=== PATIENT | female | born 1950 | race Caucasian/White ===

== ENCOUNTER 2019-03-06 18:49 | Observation (INO) | payer OTHER ==
--- OUTSIDE RECORDS SUMMARY | 2019-03-06 19:03 | XMS REPORT | Clinical Summary ---
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 Last Filed Vital Signs Not on file Plan of Treatment Not on file Results Not on fileafter 03/05/2018 Insurance Payer Benefit Plan / Subscriber ID Type Phone Address Group AETNA - AETNA MEDICARE xxxxxxxx [facility] [phone] [address] MEDICARE MGD HMO POS [id number] [place] [address]
--- OUTSIDE RECORDS SUMMARY | 2019-03-06 19:03 | XMS REPORT | Clinical Summary ---
:1950 Author Organization [facility] Address [address] [place] [address] Care Team Providers Name Role Phone Jimmy Concepcion MD Primary Care Provider Allergies Active Allergy Reactions Severity Noted Date Comments Codeine Itching 04/27/2016 Other Itching, Rash Low 04/27/2016 steroid Penicillins Itching, Rash Low 04/27/2016 Medications Medication Sig Dispensed Refills Start Date End Date Status ALPHAGAN P 0.1 % drops INSTILL 1 DROP 1 10/03/2016 Active INTO BOTH EYES EVERY 12 HOURS famotidine (PEPCID) 20 Take 20 mg by 3 09/01/2016 Active MG tablet mouth once daily. latanoprost (XALATAN) PUT 1 DROP INTO 1 08/16/2016 Active 0.005 % ophthalmic BOTH EYES AT solution BEDTIME valACYclovir (VALTREX) Take 500 mg by 3 09/03/2016 Active 500 MG tablet mouth once daily. cycloSPORINE (RESTASIS Apply to eye. 0 Active MULTIDOSE) 0.05 % drops Active Problems Problem Noted Date GERD (gastroesophageal reflux disease) 10/25/2017 Postoperative visit 04/27/2016 Overview: 7 mons post op -DOS-08/27/15-ACDF C4-C6, currently in PT, pain to back of neck into L shoulder. Would like pt to stay on course with PT and f/u in 6 months. Neck strain 04/27/2016 Contusion of thoracic wall 04/27/2016 Family History Medical History Relation Name Comments Cancer Father Diabetes Mother Heart disease Mother Relation Name Status Comments Father Mother Social History Tobacco Use Types Packs/Day Years Used Date Never Smoker Smokeless Tobacco: Never Used Alcohol Use Drinks/Week oz/Week Comments No Drinks wine occasionally Sex Assigned at Date Recorded Not on file Job Start Date Occupation Industry Not on file Not on file Not on file Travel History Travel Start Travel End No recent travel history available. Last Filed Vital Signs Not on file Plan of Treatment Health Maintenance Due Date Last Done Comments BREAST CANCER SCREENING 2001 COLON CANCER SCREENING 2001 SHINGLES VACCINES (#1) 2001 65+ PNEUMOCOCCAL VACCINE (1 of 2 - PCV13) 02/24/2016 PNEUMOCOCCAL POLYSACCHARIDE VACCINE AGE 65 AND OVER 02/24/2016 INFLUENZA VACCINE 05/30/2019 Results Not on fileafter 03/05/2018 Insurance Payer Benefit Plan / Group Subscriber ID Type Phone Address AETNA MEDICARE AETNA MEDICARE HMO/PPO [facility] xxxxxxxx HMO
[2019-03-06] MEDS ORDERED: NA CHLORIDE 0.9% 1,000 ML IV SCH (21:00)
[2019-03-06] MEDS ORDERED: MORPHINE 2 MG/ML SYR IV PRN (21:02)
[2019-03-06] MEDS ORDERED: ONDANSETRON 4 MG/2 ML VIAL IV PRN (21:02)
[2019-03-06 21:31] LABS: Absolute Lymphocytes (CBC) 2.2 K/uL (0.7-4.9); Absolute Monocytes 0.6 K/uL (0.1-1.3); Absolute Neutrophil 3.6 K/uL (1.8-8.0); Basophils % 0.9 % (0-1.3); Eosinophils % 1.9 % (0-4.4); Hematocrit 42.2 % (36.0-45.0); Lymphocytes % 33.6 % (15.3-44.8); MPV 8.5 fL (7.6-11.3); Monocytes % 8.9 % (3.3-12.3); RBC Red Blood Cell Count 4.25 M/uL (3.86-4.86)
[2019-03-06 21:46] LABS: Albumin 3.6 g/dL (3.4-5.0); Bilirubin Total 0.4 mg/dL (0.2-1.0); Magnesium 2.3 mg/dL (1.8-2.4); Potassium 3.8 mmol/L (3.5-5.1); Protein, Total 7.1 g/dL (6.4-8.2)
[2019-03-06 23:10] LABS: Urine Appearance CLEAR; Urine Bilirubin NEGATIVE (NEG); Urine Blood NEGATIVE (NEG); Urine Color YELLOW; Urine Glucose NEGATIVE (NEG); Urine Protein NEGATIVE (NEG); Urine Specific Gravity <=1.005 (1.005-1.030); Urine Urobilinogen 0.2 mg/dL (0.2-1.0)
[2019-03-06 23:25] LABS: Urine Bacteria <20 /HPF (<20); Urine Culture Reflex Order NOT NEEDED; Urine RBC NONE SEEN /HPF (NONE SEEN)
[2019-03-07] MEDS ORDERED: POTASSIUM CL SA 10 MEQ TAB PO ONE (06:06)
[2019-03-07] MEDS ORDERED: ENOXAPARIN 40 MG/0.4 ML SQ SCH (09:00)
--- NOTE | 2019-03-07 11:57 | RAD REPORT ---
EXAM DESCRIPTION: CT - Abdomen Pelvis Wo Contrast - 03/06/2019 11:11 pm CLINICAL HISTORY: 69 years Female, abd pain, diarrhea COMPARISON: None. TECHNIQUE: 5 mm axial images of the abdomen and pelvis were obtained without intravenous contrast. 1 .5 mm coronal and sagittal reformatted images were obtained. This exam was performed according to our departmental dose-optimization program, which includes autom ated exposure control, adjustment of the mA and/or kV according to patient size and/or use of iterati ve reconstruction technique. INTRAVENOUS CONTRAST: None FINDINGS: Lung bases: Normal. Liver: Normal. Spleen: Normal. Pancreas: Normal. Gallbladder: Surgically absent. Right adrenal gland: Normal. Left adrenal gland: Normal. Right kidney: Normal. Left kidney: Normal. Retroperitoneal structures: There is very mild atherosclerotic disease of abdominal aorta.. Bowel survey: There is increased stool within the transverse, descending, and sigmoid colon. The appendix is not identified. There are no secondary signs of appendicitis. The distal ileum is unremarkable. Urinary bladder: Normal. Uterus and adnexa: The uterus is absent. The ovaries are unremarkable. Peritoneal cavity: Normal. Mesentery structures: Normal. Abdominal wall: There is a tiny umbilical hernia containing fat.. Bony structures: No suspicious lesions. IMPRESSION: 1. Increased stool within the transverse, descending, and sigmoid colon. Electronically signed by: Baudilio Underwood MD 03/06/2019 11:24 PM CDT Due to temporary technical issues with the PACS/Fluency reporting system, reports are being signed by the in house radiologist as a courtesy to ensure prompt reporting. The interpreting radiologist is f ully responsible for the content of the report.
--- NOTE | 2019-03-08 05:27 | DS ---
Date of Discharge: 03/07/2019 Disposition: Discharged to go home. Physical Examination: HEENT: Examination unremarkable. Lungs: Clear to auscultation. Heart: Sounds normal. Abdomen: Soft. Bowel sounds normal. No guarding, rigidity, distention. Mild tenderness in lower abdomen. No rebound tenderness. Extremities: No leg edema. Hospital Course: This is a 69-year-old very pleasant female patient who was admitted to the hospital yesterday after she came into office with abdominal pain, nausea, vomiting, and diarrhea. Please see dictated H and P for more information. The patient was admitted to the hospital. We were concerned about possibility of colitis or acute gastroenteritis type of problem, but other possibility kept in mind was possible side effect from medication as well, as she recently was started on cefuroxime last week because of acute bronchitis type of problem. Her bronchitis symptoms have improved significantly. After she was evaluated, she was admitted to the hospital. Her CBC and chemistry were unremarkable. CAT scan of the abdomen done last night was unremarkable except significant amount of stool noted in her colon. There was no evidence of any other acute finding. After the CAT scan was done, the patient had 3-4 diarrhea type of stools, which was expected with oral contrast. No nausea, no vomiting. This morning when I saw her, details of all the test results were discussed with her. The patient was made aware that it is possible that all her abdominal pain could be due to her underlying constipation problem and could be some side effect of antibiotic as well that we need to keep in mind, but in any case she was medically stable for discharge and she normally takes Metamucil 2 times a day every day. She was advised to continue that and she was instructed to start taking Dulcolax tablet laxative on a weekly basis. The patient was discharged to go home in stable condition with following discharge medications and instructions. Discharge Medication And Instructions: 1. Continue all prior home medication except stop antibiotic. 2. Follow up at my office next week on Monday and call office for appointment. 3. Take Dulcolax laxative 1 tablet by mouth once a week. Final Diagnoses: 1. Abdominal pain. 2. Constipation. 3. GERD. 4. Osteoarthritis, multiple sites. 5. Fatigue. 6. Depression. 7. Hyperlipidemia. EDWARD/MODL Voice ID: [id number] Report ID: [id number] [id number]
--- NOTE | 2019-03-09 14:16 | HP ---
Date of Admission: 03/06/2019 Chief Complaint: Abdominal pain, nausea, vomiting, diarrhea. History Of Present Illness: This is a very pleasant 69-year-old female patient who saw me last week with acute bronchitis type of problem and was treated with oral antibiotics cefuroxime. The patient came into office today and reported that her bronchitis symptoms were getting better. She still has little bit cough and occasional colored mucus that she coughs up, but overall much better. Denies any fever or chills. As of early this morning, she started to have significant lower abdominal pain associated with 1 episode of vomiting and a couple of episodes of diarrhea. The patient came into office with this complaints. After she was evaluated, she was admitted to the hospital. The patient does not feel good at all with these complaints, has not had good appetite today. Denies any bleeding. Allergies: TO CODEINE AND PENICILLIN. Medications: List reviewed. Review of Systems: GI: As mentioned above. Respiratory: As mentioned above. All other systems reviewed and negative. Social History: Negative for smoking and alcohol use. Family History: Hypertension, diabetes, heart disease. Past Surgical History: Appendectomy, Tonsillectomy, Hysterectomy, C spine surgery, Knee surgery. Past Medical History: Osteoarthritis, glaucoma, hyperlipidemia, fatigue, depression, GERD. Physical Examination: Vital Signs: Height 5 feet 1 inch, weight 208 pounds, temperature 97.7, pulse 69, respiratory rate 20, blood pressure 139/61, 98% oxygen saturation. General: Awake, alert, oriented, not in distress. HEENT: Head atraumatic, normocephalic. Conjunctivae nonerythematous. Sclerae white. Mouth, no thrush or edema noted. Ears/Nose, no mass, lesion, discharge noted. Neck: Supple. No JVD, lymph nodes, bruit, thyromegaly noted. Lungs: Bilateral good equal air entry. Clear to auscultation. No rhonchi. No rales. Heart: Normal heart sounds, no murmur or gallop. Abdomen: Soft. Bowel sounds normoactive. No guarding, rigidity, distention. No hepatosplenomegaly. No bruit, but the patient has significant tenderness all across the lower abdomen. Extremities: No leg edema. No calf tenderness. Skin: No rash, ulcer, cellulitis. Lymphatics: No lymph node enlargement in neck, supraclavicular, infraclavicular region. Neuro: No focal neurological deficit. Chest: Unremarkable. External Genitalia: Deferred. Rectal: Deferred. Laboratory Data: White count 6.7, hemoglobin 14, and platelet 233. Sodium 143 , potassium 3.8, chloride 108, bicarb 29, BUN 11, creatinine 0.86, glucose 84. Liver function tests unremarkable. Procalcitonin less than 0.05. Urinalysis negative. Impression: Abdominal pain. Plan: Admit the patient to hospital for further evaluation and management of this problem. I was concerned about possibility of acute gastroenteritis or diverticulitis/colitis type of problem. We will follow up on CAT scan and then decide further plan of treatment. Meanwhile, IV fluid was ordered, we will continue that. DVT prophylaxis will be given per order. I will see her tomorrow morning for followup and further plan of treatment will depend on the CAT scan result. EDWARD/LEAH Voice ID: [id number] MTDD
== END 2019-03-07 11:05 | disposition home or self-care (01) ==
LOC: 2ND 19:00
PROVIDERS: ADMIT Internal Medicine; ATTEND Internal Medicine
DX: K59.00 Constipation, unspecified (principal); R10.9 Unspecified abdominal pain; M19.90 Unspecified osteoarthritis, unspecified site; E78.5 Hyperlipidemia, unspecified; F32.9 Major depressive disorder, single episode, unspecified; K21.9 Gastro-esophageal reflux disease without esophagitis; Z88.0 Allergy status to penicillin
CPT/HCPCS: 87045; 85025; 81001; 36415; 83735; 87046; 87493; 80053; 84145; 74176; J7030; G0379; G0378; J1650

== ENCOUNTER 2021-03-15 09:53 | Emergency (ER) | payer OTHER ==
--- OUTSIDE RECORDS SUMMARY | 2021-03-15 09:56 | XMS REPORT | Continuity of Care Document ---
:1950 Author Organization [facility] t Address [facility] [address] [place] [address] Care Team Providers Name Role Phone Pcp MD Primary Care Physician Unavailable Mo HAZEL Attending Clinician Problems Condition Condition Condition Status Onset Resolution Last Treating Co mments Source Name Details Category Date Date Treatment Clinician Date GERD GERD Disease Active 2016-10 [place] (gastroeso (gastroeso 2-27 Me thodi phageal phageal 00:00: st reflux reflux 00 disease) disease) Postoperat Postoperat Disease Active Overview : [place] daphney visit daphney visit 04-27 Formattin M ethodi 00:00: g of this st 00 note might be different from the original. 7 mons post op -DOS-07/31 07/14-ACDF C4-C6, currently in PT, pain to back of neck into L shoulder. Would like pt to stay on course with PT and f/u in 6 months. Neck Neck Disease Active [place] strain strain 04-27 Methodi 00:00: st 00 Contusion Contusion Disease Active Brenden ston of of 04-27 Methodi thoracic thoracic 00:00: st wall wall 00 Allergies, Adverse Reactions, Alerts Allergy Allergy Status Severity Reaction(s) Onset Inactive Treating Comm ents Source Name Type Date Date Clinician Codeine Propensi Active Itching [place] n ty to 04-27 Methodi adverse 00:00: st reaction 00 s to drug Other Propensi Active Itching, steroid [place] on ty to Rash 04-27 Methodi adverse 00:00: st reaction 00 s Penicill Propensi Active Itching, [place] ins ty to Rash 04-27 Methodi adverse 00:00: st reaction 00 s to drug Family History Family Member Diagnosis Comments Start Date Stop Date Source Natural father Cancer [place] [facility] Natural mother Diabetes [place] [facility] Natural mother Heart disease Felipe [facility] Social History Social Habit Start Date Stop Date Quantity Comments Source Alcohol intake 2017-10-26 2017-10-26 Current non-drinker [place] 00:00:00 00:00:00 of alcohol [facility] [place] (finding) Tobacco use and 2017-10-26 2017-10-26 Never used [facility] exposure 00:00:00 00:00:00 [place] [place] Alcohol Comment 2017-10-25 2017-10-25 Drinks wine [place] 00:00:00 00:00:00 occasionally [place] [place] Sex Ass[birth year] At [birth year] [place] 00:00:00 00:00:00 [facility] [place] Smoking Status Start Date Stop Date Source Never smoker Wang Demondis t Medications Ordered Filled Start Stop Current Ordering Indication Dosage Frequency Signature Comments Components Source Medication Medication Date Date Medication? Clinician (SIG) Name Name cycloSPORIN 2016-10 Yes Apply to Robert lyle E (RESTASIS 12-27 eye. Methodi MULTIDOSE) 13:55: st 0.05 % 02 drops ALPHAGAN P 2015-10 Yes INSTILL 1 Robert lyle 0.1 % drops 2-05 DROP INTO Met hodi 00:00: BOTH EYES st 00 EVERY 12 HOURS valACYclovi 2015-10 Yes 500mg QD Take 500 H outianna r (VALTREX) 1-05 mg by Methodi 500 MG 00:00: mouth once st tablet 00 daily. famotidine 2015-10 Yes 20mg QD Take 20 mg H outianna (PEPCID) 20 1-03 by mouth Meth janie MG tablet 00:00: once st 00 daily. latanoprost 2015-10 Yes PUT 1 DROP Felipe (XALATAN) 0-18 INTO BOTH Metho di 0.005 % 00:00: EYES AT st ophthalmic 00 BEDTIME solution Procedures This patient has no known procedures. Plan of Care Planned Activity Planned Date Details Comments Source Future Scheduled 2021-05-30 INFLUENZA VACCINE [place] [facility] Test 00:00:00 [code = INFLUENZA VACCINE] Future Scheduled 2020-06-30 INFLUENZA VACCINE (#1) [facility] - Test 00:00:00 [code = INFLUENZA Medical Ce nter VACCINE (#1)] Future Scheduled 2018-02-[address] [facility] - Test 00:00:00 WELLNESS (YEAR 2 or Medical Center FIRST YEAR if no IPPE) [code = MEDICARE ANNUAL WELLNESS (YEAR 2 or FIRST YEAR if no IPPE)] Future Scheduled 2016-02-24 PNEUMOCOCCAL 65+ YRS [facility] - Test 00:00:00 (2 of 2 - PPSV23) Medical Ce nter [code = PNEUMOCOCCAL 65+ YRS (2 of 2 - PPSV23)] Future Scheduled 2016-02-24 65+ PNEUMOCOCCAL [facility] Test 00:00:00 VACCINE (1 of 1 - PPSV23) [code = 65+ PNEUMOCOCCAL VACCINE (1 of 1 - PPSV23)] Future Scheduled 2001 BRE[facility] CANCER [facility] 00:00:00 SCREENING [code = BREAST CANCER SCREENING] Future Scheduled 2001 COLONOSCOPY SCREENING [place] [facility] Test 00:00:00 [code = COLONOSCOPY SCREENING] Future Scheduled 2001 SHINGLES VACCINES (#1) [place] [facility] Test 00:00:00 [code = SHINGLES VACCINES (#1)] Future Scheduled 1967 COVID-19 VACCINE (1) Brenden ston [facility] Test 00:00:00 [code = COVID-19 VACCINE (1)] Future Scheduled [address] [facility] - Test 00:00:00 malignant neoplasm of [facility] breast (procedure) [code = 100639734] Future Scheduled [address] [facility] - Test 00:00:00 malignant neoplasm of [facility] colon (procedure) [code = 668948083] Encounters Start End Encounter Admission Attending Care Care Encounter Source Date/Time Date/Time Type Type Clinicians Facility Department ID 2019-08-05 2019-08-05 SHAYAN Hawthorne [id number] 12:51:09 13:32:29 Visit Yasmin AMBULATOR [id number] Y [id number] 2019-07-02 2019-07-02 Kwasi Hassan, BCM [id number] 10:30:43 11:41:19 Visit Yasmin AMBULATOR [id number] Y [id number] 2019-06-17 2019-06-17 Office SHAYAN Hassan [id number] 12:47:15 13:25:21 Visit Yasmin AMBULATOR [id number] Y [id number] Results Test Description Test Time Test Comments Results Result Sour e Comments FL, ESOPH, SWALLOW 2019-03-13 Reason for FINAL REPORT PATIENT FUNCTION, WITH 11:13:00 Exam:->r07.0 ID: [id number] CINE OR VIDEO Modified barium swallow exam with speech pathology service, 03/13/2019 CLINICAL HISTORY: R07.0 Fluoro Time: 93 seconds. 11 films were obtained min. IMPRESSION: Please see the speech pathology service report for details. Barium contrast of multiple consistencies is given to the patient to swallow. Fluoroscopic observation is performed during swallowing. Cervical ACDF is noted at C4 through C6. No aspiration was visualized. Signed: Roge Red MDReport Verified Date/Time: 03/13/2019 11:13:50 Reading Location: [address] Radiology Reading Room
--- NOTE | 2021-03-15 10:42 | RAD REPORT ---
EXAM DESCRIPTION: RAD - Forearm Left - 03/15/2021 10:34 am CLINICAL HISTORY: Left forearm pain status post injury FINDINGS: No fracture is seen
--- NOTE | 2021-03-15 10:54 | ER ---
Nurse's Notes [facility] Name: Beryl Shah Age: 71 yrs Sex: Female : 1950 Arrival Date: 03/15/2021 Time: 09:57 Bed Treatment Private MD: Diagnosis: Pain in left wrist;Fall on same level from slipping, tripping and stumbling Presentation: 03/15 10:03 Chief complaint: Patient states: Tripped on a rug and fell this morning at 0900. Landed ca1 on L side. Reports pain on L wrist, L forearm pain when twisting arm. Coronavirus screen: Client denies travel out of the [place] in the last 14 days. At this time, the client does not indicate any symptoms associated with coronavirus-19. Ebola Screen: Patient negative for fever greater than or equal to 101.5 degrees Fahrenheit, and additional compatible Ebola Virus Disease symptoms Patient denies exposure to infectious person. Patient denies travel to an Ebola-affected area in the 21 days before illness onset. No symptoms or risks identified at this time. Initial Sepsis Screen: Does the patient meet any 2 criteria? No. Patient's initial sepsis screen is negative. Does the patient have a suspected source of infection? No. Patient's initial sepsis screen is negative. Risk Assessment: Do you want to hurt yourself or someone else? Patient reports no desire to harm self or others. Onset of symptoms was March 15, 2021. 10:03 Method Of Arrival: Ambulatory ca1 10:03 Acuity: ANDREA 4 ca1 Historical: - Allergies: 10:07 PENICILLINS; ca1 10:07 steroids; ca1 10:07 Codeine; ca1 - PMHx: 10:07 Herpes; Gastric Reflux; ca1 - PSHx: 10:07 Hysterectomy; Cholecystectomy; Appendectomy; Knee surgery; Neck surgery; ca1 - Immunization history:: Client reports receiving the 2nd dose of the Covid vaccine, Client reports receiving the 1st dose of the Covid vaccine, Pneumococcal vaccine is up to date, Flu vaccine is up to date. - Social history:: Smoking status: Patient denies any tobacco usage or history of. Screenin:27 Abuse screen: Denies threats or abuse. Denies injuries from another. Nutritional ld1 screening: No deficits noted. Tuberculosis screening: No symptoms or risk factors identified. Fall Risk Fall in past 12 months (25 points). Primary Survey: 11:00 Breathing/Chest: Respiratory pattern: regular, Respiratory effort: spontaneous, ld1 unlabored. Circulation: Cardiac rhythm: sinus rhythm. Disability Alert. Exposure/Environment:. Assessment: 10:27 General: Appears in no apparent distress. comfortable, Behavior is calm, cooperative, ld1 appropriate for age. Pain: Complains of pain in left hand Pain does not radiate. Pain currently is 7 out of 10 on a pain scale. Quality of pain is described as throbbing, Pain began 1 hour ago. Is continuous. Neuro: Level of Consciousness is awake, alert, obeys commands, Oriented to person, place, time, situation, Appropriate for age. Cardiovascular: Capillary refill < 3 seconds Patient's skin is warm and dry. Pulses are palpable in right radial artery and left radial artery. Respiratory: Airway is patent Respiratory effort is even, unlabored, Respiratory pattern is regular, symmetrical. GI: Abdomen is round non-distended. : No signs and/or symptoms were reported regarding the genitourinary system. EENT: No signs and/or symptoms were reported regarding the EENT system. Derm: No signs and/or symptoms reported regarding the dermatologic system. Musculoskeletal: No signs and/or symptoms reported regarding the musculoskeletal system. 10:31 Reassessment: ERP at bedside discussing POC. ld1 10:45 Reassessment: ERP at bedside discussing POC. ld1 Vital Signs: 10:03 BP 152 / 95; Pulse 68; Resp 16 S; Temp 97.7(TE); Pulse Ox 98% on R/A; Weight 101.15 kg ca1 (R); Height 5 ft. 0 in. (152.40 cm) (R); Pain 8/10; 10:27 BP 158 / 69; Pulse 74; Resp 18; Temp 97.9(TE); Pulse Ox 100% on R/A; Weight 101.1 kg; ld1 Height 5 ft. 5 in. (165.10 cm); Pain 7/10; 10:27 Body Mass Index 37.09 (101.10 kg, 165.10 cm) ld1 ED Course: 09:57 Patient arrived in ED. ds1 10:05 Triage completed. ca1 10:07 Arm band placed on right wrist. ca1 10:09 Abril Reyna FNP-C is PHCP. kb 10:09 Skyla Medina MD is Attending Physician. kb 10:27 Amna Powers, RN is Primary Nurse. ld1 10:27 Patient has correct armband on for positive identification. Bed in low position. Call ld1 light in reach. Side rails up X 1. Pulse ox on. NIBP on. Door closed. Noise minimized. Warm blanket given. 10:27 No provider procedures requiring assistance completed. ld1 10:34 Forearm Left XRAY In Process Unspecified. EDMS 11:02 Patient did not have IV access during this emergency room visit. ld1 Administered Medications: 10:48 Drug: TORadol (ketorolac) 30 mg Route: IM; Site: right deltoid; ld1 10:51 Follow up: Response: No adverse reaction ld1 Outcome: 10:53 Discharge ordered by MD. kb 11:02 Discharged to home ambulatory. ld1 11:02 Condition: stable 11:02 Discharge instructions given to patient, Instructed on discharge instructions, follow up and referral plans. Demonstrated understanding of instructions, follow-up care. 11:04 Patient left the ED. ld1 Signatures: Dispatcher [employer] EDLA Abril Reyna FNP-C STORAGE ADMINISTRATOR-Rosette Cuenca ds1 Lelia Healy RN RN ca1 Amna Powers, RN RN ld1 Corrections: (The following items were deleted from the chart) 11:03 10:27 Cardiovascular: Capillary refill < 3 seconds Patient's skin is warm and dry. ld1 ld1
--- NOTE | 2021-03-15 10:54 | EDPHYS ---
Physician Documentation [facility] Name: Beryl Shah Age: 71 yrs Sex: Female : 1950 Arrival Date: 03/15/2021 Time: 09:57 Bed Treatment Private MD: ED Physician Skyla Medina HPI: 03/15 12:00 This 71 yrs old Female presents to ER via Ambulatory with complaints of Fall kb Injury. 12:00 Details of fall: The patient fell from an upright position, while walking. Onset: The kb symptoms/episode began/occurred today. Associated injuries: The patient sustained left wrist, decreased range of motion, painful injury, swelling. Severity of symptoms: At their worst the symptoms were mild, moderate, in the emergency department the symptoms are unchanged. The patient has not experienced similar symptoms in the past. The patient has not recently seen a physician. Pt reports she tripped over a rug and fell onto outstretched left hand. c/o left wrist pain. Denies any other injuries or pain. Historical: - Allergies: 10:07 PENICILLINS; ca1 10:07 steroids; ca1 10:07 Codeine; ca1 - PMHx: 10:07 Herpes; Gastric Reflux; ca1 - PSHx: 10:07 Hysterectomy; Cholecystectomy; Appendectomy; Knee surgery; Neck surgery; ca1 - Immunization history:: Client reports receiving the 2nd dose of the Covid vaccine, Client reports receiving the 1st dose of the Covid vaccine, Pneumococcal vaccine is up to date, Flu vaccine is up to date. - Social history:: Smoking status: Patient denies any tobacco usage or history of. ROS: 11:59 Constitutional: Negative for fever, chills, and weight loss, Respiratory: Negative for kb shortness of breath, cough, wheezing, and pleuritic chest pain, Abdomen/GI: Negative for abdominal pain, nausea, vomiting, diarrhea, and constipation, Skin: Negative for injury, rash, and discoloration, Neuro: Negative for headache, weakness, numbness, tingling, and seizure. 11:59 MS/extremity: Positive for decreased range of motion, pain, swelling, tenderness, of the left wrist. Exam: 11:59 Constitutional: This is a well developed, well nourished patient who is awake, alert, kb and in no acute distress. Respiratory: Respirations even and unlabored. No increased work of breathing, no retractions or nasal flaring. Skin: Warm, dry with normal turgor. Normal color. Neuro: Awake and alert, GCS 15, oriented to person, place, time, and situation. Moves all extremities. Normal gait. Psych: Awake, alert, with orientation to person, place and time. Behavior, mood, and affect are within normal limits. 11:59 Musculoskeletal/extremity: Extremities: grossly normal except: noted in the left wrist: decreased ROM, pain, swelling, tenderness, ROM: limited active range of motion due to pain, in the left wrist, Circulation is intact in all extremities. Sensation intact. Vital Signs: 10:03 BP 152 / 95; Pulse 68; Resp 16 S; Temp 97.7(TE); Pulse Ox 98% on R/A; Weight 101.15 kg ca1 (R); Height 5 ft. 0 in. (152.40 cm) (R); Pain 8/10; 10:27 BP 158 / 69; Pulse 74; Resp 18; Temp 97.9(TE); Pulse Ox 100% on R/A; Weight 101.1 kg; ld1 Height 5 ft. 5 in. (165.10 cm); Pain 7/10; 10:27 Body Mass Index 37.09 (101.10 kg, 165.10 cm) ld1 MDM: 10:11 Patient medically screened. kb 11:58 Data reviewed: vital signs, nurses notes. Data interpreted: Pulse oximetry: on room air kb is 100 %. Interpretation: normal. Counseling: I had a detailed discussion with the patient and/or guardian regarding: the historical points, exam findings, and any diagnostic results supporting the discharge/admit diagnosis, radiology results, the need for outpatient follow up, a family practitioner, to return to the emergency department if symptoms worsen or persist or if there are any questions or concerns that arise at home. 03/15 10:08 Order name: Forearm Left XRAY; Complete Time: 10:45 kb 03/15 10:53 Order name: Wilbert Wrap; Complete Time: 10:54 kb Administered Medications: 10:48 Drug: TORadol (ketorolac) 30 mg Route: IM; Site: right deltoid; ld1 10:51 Follow up: Response: No adverse reaction ld1 Disposition: 18:39 Co-signature as Attending Physician, Skyla Medina MD. ma2 Disposition: 03/15/21 10:53 Discharged to Home. Impression: Pain in left wrist, Fall on same level from slipping, tripping and stumbling. - Condition is Stable. - Discharge Instructions: Musculoskeletal Pain, Wrist Pain, Vavb-ws-Fnat. - Medication Reconciliation Form, Thank You Letter, Antibiotic Education, Prescription Opioid Use form. - Follow up: Emergency Department; When: As needed; Reason: Worsening of condition. Follow up: Private Physician; When: 2 - 3 days; Reason: Recheck today's complaints, Continuance of care, Re-evaluation by your physician. Signatures: Dispatcher [employer] EDMS Abril Reyna, ROSEMARIE-C MANAGER QUALITY COMPLIANCE-Skyla Pearce MD MD ma2 Lelia Healy RN RN ca1 Amna Powers RN RN ld1 Corrections: (The following items were deleted from the chart) 11:04 10:53 03/15/2021 10:53 Discharged to Home. Impression: Pain in left wrist; Fall on same ld1 level from slipping, tripping and stumbling. Condition is Stable. Forms are Medication Reconciliation Form, Thank You Letter, Antibiotic Education, Prescription Opioid Use. Follow up: Emergency Department; When: As needed; Reason: Worsening of condition. Follow up: Private Physician; When: 2 - 3 days; Reason: Recheck today's complaints, Continuance of care, Re-evaluation by your physician. kb 11:59 11:59 Constitutional: Negative for fever, chills, and weight loss, kb kb 12:01 12:00 Pt reports she tripped over a rug and fell onto outstretched left hand. c/o left kb wrist pain. kb
[2021-03-15] MEDS ORDERED: KETOROLAC 30 MG/ML INJ ONE (11:04)
[2021-03-15 11:11] VITALS: BP 158/69; TEMP 97.9; O2SAT 100
== END 2021-03-15 11:04 | disposition home or self-care (01) ==
LOC: ER 09:53
DX: M25.532 Pain in left wrist (principal); W01.0XXA Fall on same level from slipping, tripping and stumbling without subsequent striking against object, initial encounter; K21.9 Gastro-esophageal reflux disease without esophagitis
CPT/HCPCS: 96372; 99283

== ENCOUNTER 2021-03-29 10:06 | Inpatient (IN) | payer OTHER ==
--- OUTSIDE RECORDS SUMMARY | 2021-03-29 10:10 | XMS REPORT | Continuity of Care Document ---
:1950 Author Organization [facility] t Address [facility] [address] [place] [address] Care Team Providers Name Role Phone Pcp MD Primary Care Physician Unavailable Mo HAZEL Attending Clinician Problems Condition Condition Condition Status Onset Resolution Last Treating Co mments Source Name Details Category Date Date Treatment Clinician Date GERD GERD Disease Active 2016-10 [place] (gastroeso (gastroeso 2-27 Me thodi phageal phageal 00:00: st reflux reflux 00 disease) disease) Postoperat Postoperat Disease Active Overview : [place] daphney visit daphney visit 04-27 Formattin M ethodi 00:00: g of this st 00 note might be different from the original. 7 mons post op -DOS-07/31 07/14-ACDF C4-C6, currently in PT, pain to back of neck into L shoulder. Would like pt to stay on course with PT and f/u in 6 months. Neck Neck Disease Active [place] strain strain 04-27 Methodi 00:00: st 00 [...] Date Stop Date Source Natural father Cancer [place] [facility] Natural mother Diabetes [place] [facility] Natural mother Heart disease Felipe Mancini Social History Social Habit Start Date Stop Date Quantity Comments Source Sex Assigned At [facility] Alcohol intake 2017-10-26 2017-10-26 Current non-drinker [place] 00:00:00 00:00:00 of alcohol [facility] (finding) Tobacco use and 2017-10-26 2017-10-26 Never used [place] exposure 00:00:00 00:00:00 [place] Alcohol Comment 2017-10-25 2017-10-25 Drinks wine [place] 00:00:00 00:00:00 occasionally [place] Smoking Status Start Date Stop Date Source Never smoker Fel[place] Lagosis t Medications Ordered Filled Start Stop Current Ordering Indication Dosage Frequency Signature Comments Components Source Medication Medication Date Date Medication? Clinician (SIG) Name Name cycloSPORIN 2016-10 Yes Apply to Robert valdo E (RESTASIS 2-28 eye. Methodi MULTIDOSE) 13:55: st 0.05 % 02 drops ALPHAGAN P 2015-10 Yes INSTILL 1 Ho valdo 0.1 % drops 2-05 DROP INTO Met hodi 00:00: BOTH EYES st 00 EVERY 12 HOURS valACYclovi 2015-10 Yes 500mg QD Take 500 H outianna r (VALTREX) 1-05 mg by Methodi 500 MG 00:00: mouth once st tablet 00 daily. famotidine 2015-10 Yes 20mg QD Take 20 mg [place] (PEPCID) 20 1-03 by mouth Meth janie MG tablet 00:00: once st 00 daily. latanoprost 2015-10 Yes PUT 1 DROP Felipe (XALATAN) 0-18 INTO BOTH Metho di 0.005 % 00:00: EYES AT st ophthalmic 00 BEDTIME solution Procedures This patient has no known procedures. Plan of Care Planned Activity Planned Date Details Comments Source Future Scheduled 2021-05-30 INFLUENZA VACCINE [place] Test 00:00:00 [code = INFLUENZA VACCINE] Future [...] PPSV23)] Future Scheduled 2016-02-24 65+ PNEUMOCOCCAL [place] [facility] Test 00:00:00 VACCINE (1 of 1 - PPSV23) [code = 65+ PNEUMOCOCCAL VACCINE (1 of 1 - PPSV23)] Future Scheduled 2001 BREAST CANCER [facility] Test 00:00:00 SCREENING [code = BREAST CANCER SCREENING] Future Scheduled 2001 COLONOSCOPY SCREENING [place] Test 00:00:00 [code = COLONOSCOPY SCREENING] Future Scheduled 2001 SHINGLES VACCINES (#1) [place] Test 00:00:00 [code = SHINGLES VACCINES (#1)] Future Scheduled 1963 COVID-19 VACCINE (1) Brenden ston [facility] Test 00:00:00 [code = COVID-19 VACCINE (1)] Future Scheduled [address] [facility] - Test 00:00:00 [facility] (procedure) [code = 958715730] Future Scheduled [address] [facility] - Test 00:00:00 [facility] colon (procedure) [code = 440167937] Encounters Start End Encounter Admission Attending Care Care Encounter Source Date/Time Date/Time Type Type Clinicians Facility Department ID 2019-08-05 2019-08-05 SHAYAN Hawthorne [id number] 12:51:09 13:32:29 Visit Yasmin AMBULATOR [id number] Y [id number] 2019-07-02 2019-07-02 SHAYAN Hawthorne [id number] 10:30:43 11:41:19 Visit Yasmin AMBULATOR [id number] Y [id number] 2019-06-17 2019-06-17 Office SHAYAN Hassan [id number] 12:47:15 13:25:21 Visit Yasmin AMBULATOR [id number] Y [id number] Results Test Description Test Time Test Comments Results Result Sourc e Comments FL, ESOPH, SWALLOW 2019-03-13 Reason for FINAL REPORT PATIENT FUNCTION, WITH 11:13:00 Exam:->r07.0 ID: [id number] CINE OR VIDEO Modified barium swallow exam [...] MDReport Verified Date/Time: 03/13/2019 11:13:50 Reading Location: [address] Radiology Reading Room
--- NOTE | 2021-03-29 10:27 | RAD REPORT ---
EXAM DESCRIPTION: CT - Ct Stroke Brain Wo Cont - 03/29/2021 10:18 am CLINICAL HISTORY: Left-sided weakness COMPARISON: none TECHNIQUE: Computed axial tomography of the head was obtained. All CT scans are performed using dose optimization technique as appropriate and may include automated exposure control or mA/KV adjustment according to patient size. FINDINGS: An intracranial bleed is not seen . The ventricles are normal in caliber. No extra-axial fluid collection is noted. Fluid within the sinuses/ mastoids is not seen. IMPRESSION: No acute intracranial abnormality is seen. If patient's symptoms persist MRI of the bra in would be recommended. Gee of the emergency room was notified at 10:21 a.m. March 29, 2021
[2021-03-29 10:46] LABS: Absolute Lymphocytes (CBC) 1.3 K/uL (0.7-4.9); Basophils % 0.9 % (0-1.3); Hematocrit 39.1 % (36.0-45.0); Lymphocytes % 26.7 % (15.3-44.8); MPV 8.9 fL (7.6-11.3)
--- NOTE | 2021-03-29 10:51 | RAD REPORT ---
EXAM DESCRIPTION: CTHead angio03/29/2021 10:21 am CLINICAL HISTORY: Numbness COMPARISON: None TECHNIQUE: CT angiogram of the head was obtained. 3D MIPS reconstruction performed. All CT scans are performed using dose optimization technique as appropriate and may include automated exposure control or mA/KV adjustment according to patient size. FINDINGS: Mild calcified plaque within the distal internal carotid arteries bilaterally. Basilar, internal carotid, anterior cerebral, middle cerebral and posterior cerebral arteries do not demonstrate a significant stenosis. . An aneurysm is not seen. IMPRESSION: No acute abnormality is displayed
[2021-03-29 10:58] LABS: BUN Blood Urea Nitrogen 19 mg/dL (7-18); Bicarbonate 27 mmol/L (21-32); Glucose Level 89 mg/dL (74-106); Potassium 4.2 mmol/L (3.5-5.1); Sodium Level 139 mmol/L (136-145); Troponin (Emerg Dept Use Only) < 0.02 ng/mL (0.0-0.045)
[2021-03-29] MEDS ORDERED: ASPIRIN 81 MG CHEWABLE TABLET ONE (11:08)
[2021-03-29] MEDS ORDERED: FOLIC ACID 5 MG/ML VIAL ONE (11:10)
[2021-03-29] MEDS ORDERED: NA CHLORIDE 0.9% 50 ML ONE (11:11)
--- NOTE | 2021-03-29 11:20 | RAD REPORT ---
EXAM DESCRIPTION: Miesha Single View03/29/2021 10:29 am CLINICAL HISTORY: CVA COMPARISON: 2015 FINDINGS: The lungs appear clear of acute infiltrate. The heart is normal size IMPRESSION: No acute abnormalities displayed
--- NOTE | 2021-03-29 11:24 | ER ---
Nurse's Notes [facility] Name: Beryl Shah Age: 71 yrs Sex: Female : 1950 Arrival Date: 03/29/2021 Time: 10:06 Bed 4 Private MD: Diagnosis: Cerebral infarction;Weakness;Paresthesia of skin;Slurred speech Presentation: 03/29 10:08 Chief complaint: EMS states: toned out for left sided weakness and slurred speech. Last ld1 known well is unknown. Coronavirus screen: At this time, the client does not indicate any symptoms associated with coronavirus-19. Ebola Screen: No symptoms or risks identified at this time. An acute neurological deficit is present. The patients blood glucose was checked before arriving to the hospital and was found to be normal. Initial Sepsis Screen: Does the patient meet any 2 criteria? No. Patient's initial sepsis screen is negative. Does the patient have a suspected source of infection? No. Patient's initial sepsis screen is negative. Risk Assessment: Do you want to hurt yourself or someone else? Patient reports no desire to harm self or others. Onset of symptoms was March 28, 2021. 10:08 Method Of Arrival: EMS: [facility] ld1 10:08 Acuity: ANDREA 3 ld1 Triage Assessment: 10:10 The onset of the patients symptoms was at an unknown time. General: Appears in no ld1 apparent distress. uncomfortable, Behavior is calm, cooperative, appropriate for age. Pain: Denies pain. EENT: No signs and/or symptoms were reported regarding the EENT system. Neuro: Level of Consciousness is awake, alert, obeys commands, Oriented to person, place, time, situation, Sanitation Worker Cleaning Equipment are weak on left Speech is slurred, Facial droop on left, Numbness in left arm and left leg Reports numbness in left arm and left leg weakness in left arm and left leg. Cardiovascular: Capillary refill < 3 seconds Patient's skin is warm and dry. Rhythm is regular. Respiratory: Airway is patent Respiratory effort is even, unlabored, Respiratory pattern is regular, symmetrical. GI: Abdomen is round non-distended. : No signs and/or symptoms were reported regarding the genitourinary system. Derm: No signs and/or symptoms reported regarding the dermatologic system. Musculoskeletal: No signs and/or symptoms reported regarding the musculoskeletal system. 10:10 The onset of the patients symptoms was March 28, 2021 at 22:00. hb Stroke Activation: Symptom onset > 6 hours Physician: Stroke Attending; Name: ; Notified At: ; Arrived At: Physician: Chief Stroke Resident; Name: ; Notified At: ; Arrived At: Physician: Stroke Resident; Name: ; Notified At: ; Arrived At: Physician: ED Attending; Name: ; Notified At: ; Arrived At: Physician: ED Resident; Name: ; Notified At: ; Arrived At: Historical: - Allergies: 10:11 PENICILLINS; ld1 10:11 steroids; ld1 10:11 Codeine; ld1 - PMHx: 10:11 Gastric Reflux; HERPES; ld1 - PSHx: 10:11 None; ld1 - Immunization history:: Adult Immunizations up to date. - Social history:: Smoking status: Patient denies any tobacco usage or history of. - Family history:: not pertinent. - Hospitalizations: : No recent hospitalization is reported. Screenin:15 Abuse screen: Denies threats or abuse. Denies injuries from another. Nutritional ld1 screening: No deficits noted. Tuberculosis screening: No symptoms or risk factors identified. Fall Risk IV access (20 points). Total Bob Fall Scale indicates High Risk Score (45 or more points). Fall prevention measures have been instituted. Side Rails Up X 2 Frequent Obs/Assessments Occuring As available patient and family educated on Fall Prevention Program and Strategies. Assessment: 10:26 VAN Scoring: Arm Drift: Severe drift Visual Disturbance: No visual disturbance noted. ld1 Aphasia: Expressive aphasia noted. Provider notified of +VAN scoring. Neglect: No neglect noted. T-PA (Activase) Screening: Contraindications: Patient reports onset of signs and symptoms of stroke greater than 6 hours ago: Yes. Reassessment: See triage assessment. 11:11 Patient has been NPO before screening. The patient is alert, and able to follow hb commands. The patient does not exhibit slurred or garbled speech. mild expressive aphasia The patient does not exhibit difficulty understanding words. The patient is able to swallow own secretions with no drooling or need for suction. Patient tolerated one teaspoon of water. No drooling, immediate coughing, gurgling, or clearing of the throat was noted. The patient tolerated 90mL of water. No drooling, immediate coughing, gurgling, or clearing of the throat was noted. The patient passed the bedside swallow screening. Oral medications may be given as ordered. Contact Physician for further diet orders. Provider notified of bedside swallow screening results: Rich Hyman MD. 11:32 Reassessment: Pt to MRI. hb 13:08 Reassessment: Patient appears in no apparent distress at this time. No changes from ld1 previously documented assessment. Patient and/or family updated on plan of care and expected duration. Pain level reassessed. Patient denies pain at this time. 14:17 Reassessment: Patient appears in no apparent distress at this time. No changes from ld1 previously documented assessment. Patient and/or family updated on plan of care and expected duration. Pain level reassessed. Patient denies pain at this time. 14:40 Reassessment: Attempted to call report, nurse unavailable. ld1 15:44 Reassessment: Patient appears in no apparent distress at this time. No changes from hb previously documented assessment. Patient and/or family updated on plan of care and expected duration. Pain level reassessed. Talking with at bedside. Denies concerns at this time. Patient denies pain at this time. Vital Signs: 10:03 BP 165 / 73; Pulse 68; Resp 18; Temp 98.5(O); Pulse Ox 100% on R/A; Pain 0/10; ld1 10:08 BP 165 / 73; Pulse 62; Resp 18; Pulse Ox 100% on R/A; Pain 0/10; ld1 10:30 BP 143 / 82; Pulse 68; Resp 18; Pulse Ox 100% on R/A; ld1 11:00 BP 152 / 75; Pulse 58; Resp 18; Pulse Ox 100% on R/A; ld1 12:00 BP 120 / 80; Pulse 83; Resp 18; Pulse Ox 95% on R/A; ld1 13:09 BP 133 / 82; Pulse 83; Resp 18; Pulse Ox 96% on R/A; ld1 14:17 BP 147 / 71; Pulse 65; Resp 18; Pulse Ox 100% on R/A; ld1 15:44 BP 143 / 79; Pulse 62; Resp 18; Pulse Ox 100% on R/A; hb NIH Stroke Scale Scores: 10:10 NIHSS Score: 7 rn 10:15 NIHSS Score: 7 ld1 ED Course: 10:06 Patient arrived in ED. ds1 10:07 Rich Hyman MD is Attending Physician. rn 10:08 Amna Powers, PIRNCE is Primary Nurse. ld1 10:10 Triage completed. ld1 10:10 Arm band placed on right wrist. ld1 10:15 Patient has correct armband on for positive identification. Placed in gown. Bed in low ld1 position. Call light in reach. Side rails up X2. monitor and storage bin tender on. Pulse ox on. NIBP on. Door closed. Noise minimized. Warm blanket given. 10:18 CT Stroke Brain w/o Contrast In Process Unspecified. EDMS 10:21 CT Head Angio In Process Unspecified. EDMS 10:27 Stroke CXR 1 View In Process Unspecified. EDMS 10:30 Maintain EMS IV. Dressing intact. Good blood return noted. Site clean \\T\\ dry. Gauge \\T\\ ld 1 site: 20G RAC. 11:23 Skyla Kent MD is Hospitalizing Provider. rn 12:49 MRA Head Wo Cont In Process Unspecified. EDMS 12:49 MRA Neck W/Wo Cont In Process Unspecified. EDMS 12:49 Brain W/Wo Cont In Process Unspecified. EDMS 12:58 Initial lab(s) drawn, by ED staff, sent to lab. EKG done, by ED staff, reviewed by [email or web address] Rich Hyman MD. 13:29 Cliff Hyman MD is Hospitalizing Provider. rn 15:45 No provider procedures requiring assistance completed. hb 15:45 Patient admitted, IV remains in place. intact, No redness/swelling at site. hb Administered Medications: 10:55 Drug: foLIC Acid 1 mg Route: IVPB; Site: right antecubital; ld1 11:15 Follow up: Response: No adverse reaction; IV Status: Completed infusion; IV Intake: [id number] 10:56 Drug: Aspirin Chewable Tablet 324 mg Route: PO; ld1 12:40 Follow up: Response: No adverse reaction hb Point of Care Testing: Blood Glucose: 10:10 Blood Glucose: 86 mg/dL; hb Ranges: Intake: 11:15 IV: 50ml; Total: 50ml. ld1 Outcome: 11:24 Decision to Hospitalize by Provider. rn 15:46 Admitted to Med/surg accompanied by tech, via stretcher, room 222, on monitor, with chart, Report called to PRINCE RIVAS. 15:46 Condition: stable 15:47 Patient left the ED. NIH Stroke Scale - NIH Stroke Score Date: 03/29/2021 Time: 10:10 Total Score = 7 1a. Level of Consciousness (LOC) - 0(Alert) 1b. Level of Consciousness (LOC) (Year \\T\\ Age) - 0(Both) 1c. LOC Commands (Open \\T\\ Closes Eyes/Assistant Baseball Coach) - 0(Both) 2. Best Gaze (Lateral Gaze Paresis) - 0(Normal) 3. Visual Field Loss - 0(No visual loss) 4. Facial Palsy - 1(Minor Paralysis) 5a. Left Arm: Motor (10-second hold) - 2(Drift, some effort against gravity) 5b. Right Arm: Motor (10-second hold) - 0(No drift) 6a. Left Leg: Motor (5-second hold - always test supine) - 2(Drift, some effort against gravity) 6b. Right Leg: Motor (5-second hold - always test supine) - 0(No drift) 7. Limb Ataxia (finger/nose \\T\\ heel/campbell - test with eyes open) - 0(Absent) 8. Sensory Loss (pinprick arms/legs/face) - 1(Mild to moderate loss) 9. Best Language: Aphasia (description/naming/reading) - 0(No aphasia) 10. Dysarthria (speech clarity - read or repeat words) - 1(Mild to Moderate) 11. Extinction and Inattention (visual/tactile/auditory/spatial/personal) - 0(No abnormality) Initials: prince NIH Stroke Scale - NIH Stroke Score Date: 03/29/2021 Time: 10:15 Total Score = 7 1a. Level of Consciousness (LOC) - 0(Alert) 1b. Level of Consciousness (LOC) (Year \\T\\ Age) - 0(Both) 1c. LOC Commands (Open \\T\\ Closes Eyes/Assistant Baseball Coach) - 0(Both) 2. Best Gaze (Lateral Gaze Paresis) - 0(Normal) 3. Visual Field Loss - 0(No visual loss) 4. Facial Palsy - 1(Minor Paralysis) 5a. Left Arm: Motor (10-second hold) - 2(Drift, some effort against gravity) 5b. Right Arm: Motor (10-second hold) - 0(No drift) 6a. Left Leg: Motor (5-second hold - always test supine) - 2(Drift, some effort against gravity) 6b. Right Leg: Motor (5-second hold - always test supine) - 0(No drift) 7. Limb Ataxia (finger/nose \\T\\ heel/campbell - test with eyes open) - 0(Absent) 8. Sensory Loss (pinprick arms/legs/face) - 1(Mild to moderate loss) 9. Best Language: Aphasia (description/naming/reading) - 0(No aphasia) 10. Dysarthria (speech clarity - read or repeat words) - 1(Mild to Moderate) 11. Extinction and Inattention (visual/tactile/auditory/spatial/personal) - 0(No abnormality) Initials: ld1 Signatures: Dispatcher [employer] ALVARO Rosette Howard ds1 Rich Hyman MD MD rn Baxter, Heather, RN RN hb Martinez, [facility] Amna Powers RN RN ld1 Corrections: (The following items were deleted from the chart) 10:26 10:19 The onset of the patients symptoms was ld1 ld1 14:49 14:40 Reassessment: Attempted to call report to 2nd floor, nurse was busy. ld1 Stated "I will call you back in 5 minutes." ld1
--- NOTE | 2021-03-29 11:24 | EDPHYS ---
Physician Documentation [facility] Name: Beryl Shah Age: 71 yrs Sex: Female : 1950 Arrival Date: 03/29/2021 Time: 10:06 Bed 4 Private MD: ED Physician Rich Hyman HPI: 03/29 10:27 This 71 yrs old Female presents to ER via EMS with complaints of S/S of rn Possible Stroke. 10:27 The patient's problem is reported as paresthesias, weakness, in the left upper rn extremity, in the left lower extremity. Onset: The symptoms/episode began/occurred last night. Duration: This was a single incident, The episode is continuous. Context:. The symptoms are alleviated by nothing. The symptoms are aggravated by nothing. Associated signs and symptoms: Pertinent positives: numbness, tingling, weakness. Severity of symptoms: At their worst the symptoms were moderate in the emergency department the symptoms are unchanged. The patient has experienced similar episodes in the past. The patient has not recently seen a physician. Reports last night began with "dragging left foot" but able to walk, went ot bed, woke up with worse symptoms, couldn't get out of bed. + hx of TIAs, with similar presentation in past. Denies blood thinners. Also reports recent fall onto left side, seen at ER, states no acute injuries at the time. . Historical: - Allergies: 10:11 PENICILLINS; ld1 10:11 steroids; ld1 10:11 Codeine; ld1 - PMHx: 10:11 Gastric Reflux; HERPES; ld1 - PSHx: 10:11 None; ld1 - Immunization history:: Adult Immunizations up to date. - Social history:: Smoking status: Patient denies any tobacco usage or history of. - Family history:: not pertinent. - Hospitalizations: : No recent hospitalization is reported. ROS: 10:27 Constitutional: Negative for fever, chills, and weight loss, Eyes: Negative for injury, rn pain, redness, and discharge, ENT: Negative for injury, pain, and discharge, Neck: Negative for injury, pain, and swelling, Cardiovascular: Negative for chest pain, palpitations, and edema, Respiratory: Negative for shortness of breath, cough, wheezing, and pleuritic chest pain, Abdomen/GI: Negative for abdominal pain, nausea, vomiting, diarrhea, and constipation, Back: Negative for injury and pain, : Negative for injury, bleeding, discharge, and swelling, MS/Extremity: Negative for injury and deformity, Skin: Negative for injury, rash, and discoloration, Neuro: Negative for headache, and seizure Exam: 10:27 Constitutional: This is a well developed, well nourished patient who is awake, alert, rn and in no acute distress. Head/Face: Normocephalic, atraumatic. Eyes: Pupils equal round and reactive to light, extra-ocular motions intact. Lids and lashes normal. Conjunctiva and sclera are non-icteric and not injected. Cornea within normal limits. Periorbital areas with no swelling, redness, or edema. Cardiovascular: Regular rate and rhythm. No pulse deficits. Respiratory: No increased work of breathing, no retractions or nasal flaring. Abdomen/GI: soft, non-tender Skin: Warm, dry MS/ Extremity: Pulses equal, no cyanosis. Neuro: Awake and alert, GCS 15, oriented to person, place, time, and situation. + mild left lower facial weakness, + left sided weakness with some effort to gravity but falls to ground in 1 second, + decreased sensation to soft touch LUE/LLE. + slurred speech. Vital Signs: 10:03 BP 165 / 73; Pulse 68; Resp 18; Temp 98.5(O); Pulse Ox 100% on R/A; Pain 0/10; ld1 10:08 BP 165 / 73; Pulse 62; Resp 18; Pulse Ox 100% on R/A; Pain 0/10; ld1 10:30 BP 143 / 82; Pulse 68; Resp 18; Pulse Ox 100% on R/A; ld1 11:00 BP 152 / 75; Pulse 58; Resp 18; Pulse Ox 100% on R/A; ld1 12:00 BP 120 / 80; Pulse 83; Resp 18; Pulse Ox 95% on R/A; ld1 13:09 BP 133 / 82; Pulse 83; Resp 18; Pulse Ox 96% on R/A; ld1 14:17 BP 147 / 71; Pulse 65; Resp 18; Pulse Ox 100% on R/A; ld1 15:44 BP 143 / 79; Pulse 62; Resp 18; Pulse Ox 100% on R/A; hb NIH Stroke Scale Scores: 10:10 NIHSS Score: 7 rn 10:15 NIHSS Score: 7 ld1 MDM: 10:08 Patient medically screened. rn 10:09 ED course: Pt states began feeling weak and left foot "dragging" last night, woke up rn with worse weakness and couldn't get out of bed, no period of normal strength or speech today. No TPA indicated given onset last night and out of window for TPA.. 10:48 ED course: No acute findings on CT head. Symptoms have improved slightly but not rn significantly. . 11:22 Differential diagnosis: CVA, TIA, metabolic disorder. Data reviewed: vital signs, rn nurses notes, lab test result(s), EKG, radiologic studies, CT scan, and as a result, I will admit patient. Counseling: I had a detailed discussion with the patient and/or guardian regarding: the historical points, exam findings, and any diagnostic results supporting the discharge/admit diagnosis, lab results, radiology results, the need for further work-up and treatment in the hospital. Response to treatment: the patient's symptoms have mildly improved after treatment, and as a result, I will admit patient. Admission orders: after a detailed discussion of the patient's condition and case, the admit orders are written by me. 11:22 ED course: CTA neg for LVO, given aspirin and folic acid, will admit here. Carlie honeycutt rn to hospitalist. . 03/29 10:09 Order name: Troponin (emerg Dept Use Only); Complete Time: 11:00 rn 03/29 10:09 Order name: Basic Metabolic Panel; Complete Time: 11: rn 03/29 10:09 Order name: CBC with Diff; Complete Time: 11: rn 03/29 10:09 Order name: Protime (+inr); Complete Time: 11:00 rn 03/29 10:09 Order name: Ptt, Activated; Complete Time: : rn 03/29 10:44 Order name: Glucose, Ancillary Testing; Complete Time: 11:00 EDMS 03/29 10:09 Order name: CT Stroke Brain w/o Contrast; Complete Time: 11:00 rn 03/29 10:09 Order name: Stroke CXR 1 View; Complete Time: 13:24 rn 03/29 10:15 Order name: CT Head Angio; Complete Time: 11:00 rn 03/29 12:08 Order name: MRA Head Wo Cont; Complete Time: 13:24 EDMS 03/29 12:09 Order name: MRA Neck W/Wo Cont; Complete Time: 13:24 EDMS 03/29 13:03 Order name: SARS-COV-2 RT PCR; Complete Time: 13:24 EDMS 03/29 10:09 Order name: EKG; Complete Time: 10:10 rn 03/29 10:09 Order name: Accucheck; Complete Time: 10:45 rn 03/29 10:09 Order name: Cardiac monitoring; Complete Time: 10: rn 03/29 10:09 Order name: EKG - Nurse/Tech; Complete Time: :45 rn 03/29 10:09 Order name: IV Saline Lock; Complete Time: 10: rn 03/29 10:09 Order name: Labs collected and sent; Complete Time: : rn 03/29 10:09 Order name: NPO; Complete Time: 10: rn 03/29 10:09 Order name: O2 Per Protocol; Complete Time: 10: rn 03/29 10:09 Order name: O2 Sat Monitoring; Complete Time: 10:12 rn 03/29 10:09 Order name: Stroke Swallow Screen; Complete Time: 11:43 rn 03/29 12:09 Order name: Brain W/Wo Cont; Complete Time: 13:24 EDMS Administered Medications: 10:55 Drug: foLIC Acid 1 mg Route: IVPB; Site: right antecubital; ld1 11:15 Follow up: Response: No adverse reaction; IV Status: Completed infusion; IV Intake: [id number] 10:56 Drug: Aspirin Chewable Tablet 324 mg Route: PO; ld1 12:40 Follow up: Response: No adverse reaction hb Point of Care Testing: Blood Glucose: 10:10 Blood Glucose: 86 mg/dL; hb Ranges: Critical Glucose Levels:Adult <50 mg/dl or >400 mg/dl <40 mg/dl or >180 mg/dl Disposition: 03/29/21 11:24 Hospitalization ordered by Cliff Hyman for Inpatient Admission. Preliminary diagnosis are Cerebral infarction, Weakness, Paresthesia of skin, Slurred speech. - Bed requested for Telemetry/MedSurg (Inpatient). - Status is Inpatient Admission. hb - Condition is Stable. - Problem is new. - Symptoms have improved. NIH Stroke Scale - NIH Stroke Score Date: 03/29/2021 Time: 10:10 Total Score = 7 1a. Level of Consciousness (LOC) - 0(Alert) 1b. Level of Consciousness (LOC) (Year \\T\\ Age) - 0(Both) 1c. LOC Commands (Open \\T\\ Closes Eyes/Metal Sprayer) - 0(Both) 2. Best Gaze (Lateral Gaze Paresis) - 0(Normal) 3. Visual Field Loss - 0(No visual loss) 4. Facial Palsy - 1(Minor Paralysis) 5a. Left Arm: Motor (10-second hold) - 2(Drift, some effort against gravity) 5b. Right Arm: Motor (10-second hold) - 0(No drift) 6a. Left Leg: Motor (5-second hold - always test supine) - 2(Drift, some effort against gravity) 6b. Right Leg: Motor (5-second hold - always test supine) - 0(No drift) 7. Limb Ataxia (finger/nose \\T\\ heel/campbell - test with eyes open) - 0(Absent) 8. Sensory Loss (pinprick arms/legs/face) - 1(Mild to moderate loss) 9. Best Language: Aphasia (description/naming/reading) - 0(No aphasia) 10. Dysarthria (speech clarity - read or repeat words) - 1(Mild to Moderate) 11. Extinction and Inattention (visual/tactile/auditory/spatial/personal) - 0(No abnormality) Initials: skye NIH Stroke Scale - NIH Stroke Score Date: 03/29/2021 Time: 10:15 Total Score = 7 1a. Level of Consciousness (LOC) - 0(Alert) 1b. Level of Consciousness (LOC) (Year \\T\\ Age) - 0(Both) 1c. LOC Commands (Open \\T\\ Closes Eyes/Metal Sprayer) - 0(Both) 2. Best Gaze (Lateral Gaze Paresis) - 0(Normal) 3. Visual Field Loss - 0(No visual loss) 4. Facial Palsy - 1(Minor Paralysis) 5a. Left Arm: Motor (10-second hold) - 2(Drift, some effort against gravity) 5b. Right Arm: Motor (10-second hold) - 0(No drift) 6a. Left Leg: Motor (5-second hold - always test supine) - 2(Drift, some effort against gravity) 6b. Right Leg: Motor (5-second hold - always test supine) - 0(No drift) 7. Limb Ataxia (finger/nose \\T\\ heel/campbell - test with eyes open) - 0(Absent) 8. Sensory Loss (pinprick arms/legs/face) - 1(Mild to moderate loss) 9. Best Language: Aphasia (description/naming/reading) - 0(No aphasia) 10. Dysarthria (speech clarity - read or repeat words) - 1(Mild to Moderate) 11. Extinction and Inattention (visual/tactile/auditory/spatial/personal) - 0(No abnormality) Initials: ld1 Signatures: Dispatcher [employer] EDMS Rich Hyman MD MD rn Martinez, Eric em1 Abril Gregory RN RN Amna Powers RN RN ld1 Corrections: (The following items were deleted from the chart) 12:08 11:16 MR STROKE PROTOCOL+MRI.RAD.BRZ ordered. EDKY EDKY 12:11 11:11 CORONAVIRUS+MR.LAB.BRZ ordered. [facility] EDKY 13:29 11:24 Hospitalization Ordered by Skyla Kent MD for Inpatient Admission. rn Preliminary diagnosis is Cerebral infarction; Weakness; Paresthesia of skin; Slurred speech. Bed requested for Telemetry/MedSurg (Inpatient). Status is Inpatient Admission. Condition is Stable. Problem is new. Symptoms have improved. rn 14:32 13:29 03/29/2021 11:24 Hospitalization Ordered by Cliff Hyman MD for em1 Inpatient Admission. Preliminary diagnosis is Cerebral infarction; Weakness; Paresthesia of skin; Slurred speech. Bed requested for Telemetry/MedSurg (Inpatient). Status is Inpatient Admission. Condition is Stable. Problem is new. Symptoms have improved. rn 15:47 14:32 03/29/2021 11:24 Hospitalization Ordered by Cliff Hyman MD for Inpatient Admission. Preliminary diagnosis is Cerebral infarction; Weakness; Paresthesia of skin; Slurred speech. Bed requested for Telemetry/MedSurg (Inpatient). Status is Inpatient Admission. Condition is Stable. Problem is new. Symptoms have improved. em1
--- NOTE | 2021-03-29 13:08 | RAD REPORT ---
EXAM DESCRIPTION: MRI - Brain W/Wo Cont - 03/29/2021 12:49 pm CLINICAL HISTORY: slurred speech; weakness COMPARISON: MRA Head Wo Cont dated 03/29/2021; MRA Neck W/Wo Cont dated 03/29/2021 TECHNIQUE: Sagittal and axial T1-weighted images were obtained. Axial PD/heavily T2-weighted and T2- FLAIR images were obtained along with axial DWI/ADC mapping sequences. Coronal heavily T2 weighted s equence obtained. Axial and coronal post-contrast T1-weighted images were also obtained. A 20 ml Mul tihance contrast following utilized. FINDINGS: No intracranial hemorrhage, mass or acute infarction. There is no edema or shift of midli ne structures. No extra-axial fluid collections. Rios-matter/white matter junction is preserved. Sig nal voids are seen as a normal finding in the major intracranial vessels. Patient has little if any identifiable atrophy and only trace amounts of chronic ischemic change. Ventricles are normal. Post-contrast images show normal enhancement. No dural thickening. Mastoid air cells and paranasal sinuses are clear. IMPRESSION: No infarction. No acute intracranial finding. Patient has only trace amounts of chronic ischemic change in the cerebral white matter.
--- NOTE | 2021-03-29 13:11 | RAD REPORT ---
EXAM DESCRIPTION: MRI - MRA Head Wo Cont - 03/29/2021 12:49 pm CLINICAL HISTORY: Slurred speech, CVA COMPARISON: CT head same date, CTA head same date TECHNIQUE: Axial and coronal 3D [id number] image acquisition was performed. 3D rotational images were generated with source and reconstruction images reviewed. Horizontal and vertical axis rotation al views generated using MIP protocol. FINDINGS: No aneurysm or vascular malformation. Minimal tortuosity in the vertebrobasilar vasculature with no posterior circulation stenosis, vasculi tis or significant atherosclerotic changes. Anterior and middle cerebral arteries show no significant disease. Minimal atherosclerotic change and luminal narrowing seen in the vertical petrous portion of the left internal carotid artery. Cavernou s and supraclinoid portions of the internal carotid arteries show no significant atherosclerotic [place] or luminal narrowing. IMPRESSION: MRA Head imaging shows minimal atherosclerotic change within petrous portion of the left internal carotid artery. No other significant findings noted.
--- NOTE | 2021-03-29 13:13 | RAD REPORT ---
EXAM DESCRIPTION: MRI - MRA Neck W/Wo Cont - 03/29/2021 12:49 pm CLINICAL HISTORY: Slurred speech, CVA, left-sided weakness COMPARISON: CT head same date, MRA head same date TECHNIQUE: MR angiography of the cervical vasculature performed. Coronal imaging plane acquisition u tilized. A 20 MultiHance contrast volume was utilized. Coronal reformatted images were generated and reviewed. Vertical axis 3D rotational projections obtained using maximum intensity projection protoco l. FINDINGS: Aortic arch is 3 vessel configuration with no origins stenosis. Codominant vertebral arter ies show tortuosity near the origins but no stenosis confirmed. Vertebral, common carotid and interna l carotid arteries show no dissection, significant stenosis or other suspicious finding. Bilateral subclavian arteries unremarkable as well. IMPRESSION: MRA neck examination shows no significant or suspicious finding.
[2021-03-29] MEDS ORDERED: ONDANSETRON 4 MG/2 ML VIAL IV PRN (15:07)
[2021-03-29] MEDS ORDERED: ACETAMINOPHEN 500 MG TAB PO PRN (15:07)
[2021-03-29] MEDS ORDERED: HYDROCODONE/APAP 5/325 MG TAB PO PRN (15:09)
[2021-03-29] MEDS ORDERED: LABETALOL 20 MG/4ML SYRINGE IV PRN (15:09)
--- NOTE | 2021-03-29 15:12 | P.HP ---
Certification for Inpatient Patient admitted to: Inpatient With expected LOS: >2 Midnights Patient will require the following post-hospital care: None Practitioner: I am a practitioner with admitting privileges, knowledge of patient current condition, hospital course, and medical plan of care. Services: Services provided to patient in accordance with Admission requirements found in Title 42 Section 412.3 of the Code of Federal Regulations <Michael Moura - Last Filed: 03/29/21 17:52> Patient History Date of Service: 03/29/21 Reason for admission: Left sided weakness History of Present Illness: Patient is a 71-year-old female with a past medical history significant for GERD, TIA, Macular degeneration, glaucoma and Herpes who presents with complaint of left side weakness. Patient reported that she has been having left-sided weakness for quite some time now. Patient indicated that yesterday she started having problems with lifting heavy left leg. She felt as if she was dragging her left leg. Patient also reports a history of falls due to the left leg weakness. Patient denies hitting her head or losing consciousness. Patient reported that she woke up this morning and could be barely move her left leg. She reports increased weakness on the left side. Patient also reports pain in her bilateral shoulders. Patient reports associated signs or symptoms of left-sided numbness\\ tingling, slurred speech, blurry vision and mild expressive aphasia. Patient denies any other signs and symptoms. Symptoms are aggravated or relieved by nothing. Patient decided to present to the hospital due to worsening symptoms. - Past Medical/Surgical History Diabetic: No -: macular degenaration -: rheumatic fever-child -: bronchitis -: pneumonia -: cataract -: glaucoma -: Spinal surgery 2017 -: hyalar surgery -: Appendectomy -: Cholecystectomy - Family History Father -: Cancer Notes: prostate Mother -: Heart disease, Hypertension, Diabetes, Other (see notes) Notes: aneurysm - Social History Smoking Status: Never smoker Alcohol use: No CD- Drugs: No Caffeine use: No Place of Residence: Home <Michael Moura José - Last Filed: 03/29/21 17:52> Date of Service: 03/29/21 <Cliff Hyman - Last Filed: 03/29/21 21:23> Allergies codeine Allergy (Mild, Verified 03/06/19 20:20) Itching/Hives/Rash Penicillins Allergy (Mild, Verified 03/06/19 20:20) Itching/Hives/Rash Home Medications: Cyclosporine [Restasis] 1 drop EACH EYE DAILY 03/06/19 Latanoprost/Pf [Latanoprost 0.005% Eye Drop] 1 drop EACH EYE DAILY 03/06/19 Valacyclovir [Valtrex*] 500 mg PO DAILY PRN 03/06/19 Ascorbic Acid [Vitamin C] 250 mg PO BID 03/29/21 Ascorbic Acid/Collagen Hydr [Collagen Plus Vit C Capsule] 1 each PO DAILY 03/29/21 Cholecalciferol (Vitamin D3) [D3-50] 50,000 unit PO DAILY 03/29/21 Cyclosporine [Restasis] 1 drop EACH EYE BID 03/29/21 Diclofenac Sodium [Diclo Gel] 1 each TP DAILY PRN 03/29/21 Docusate Sodium [Colace] 50 mg PO BEDTIME 03/29/21 Dorzolamide HCl/Pf [Dorzolamide 2% Eye Drop] 1 drop OP TID 03/29/21 L.acidoph,Paracasei, B.lactis [Probiotic] 1 each PO DAILY 03/29/21 Mecobalamin [B12 Active] 1,000 mcg PO Q48H 03/29/21 RX: Omeprazole 20 mg PO DAILY 03/29/21 RX: Vitamin E 400 unit PO DAILY 03/29/21 Vit C/E/Zn/Coppr/Lutein/Zeaxan [Preservision Areds 2 Softgel] 1 each PO BID 03/29/21 Vitamin D3/Vitamin K2 (Mk4) [K2 Plus D3 Tablet] 1 each PO DAILY 03/29/21 methocarbamoL [Methocarbamol] 500 mg PO BIDP PRN 03/29/21 Review of Systems General: Weakness Eyes: Vision Change ENT: Unremarkable Respiratory: Unremarkable Cardiovascular: Unremarkable Gastrointestinal: Unremarkable Genitourinary: Unremarkable Musculoskeletal: Neck Pain, Shoulder Pain Integumentary: Unremarkable Neurological: Weakness, Numbness, Incoordination, Change in Speech Lymphatics: Unremarkable <Michael Moura - Last Filed: 03/29/21 17:52> Physical Examination - Physical Exam General: Alert, In no apparent distress, Oriented x3 HEENT: Atraumatic, PERRLA, Mucous membr. moist/pink, EOMI, Sclerae nonicteric Neck: 2+ carotid pulse no bruit, No LAD, Without JVD or thyroid abnormality Respiratory: Clear to auscultation bilaterally, Normal air movement Cardiovascular: No edema, Regular rate/rhythm, Normal S1 S2 Capillary refill: Brisk Gastrointestinal: Normal bowel sounds, No tenderness Musculoskeletal: No clubbing, No tenderness Integumentary: No rashes, No breakdown Neurological: Other (Left facial droop ), Abnormal gait, Abnormal speech, Abnormal strength, Abnormal sensation, Abnormal affect Lymphatics: No axilla or inguinal lymphadenopathy External genitalia: Deferred Rectal: Deferred - Studies Laboratory Data (last 24 hrs) 03/29/21 10:33: PT 11.5, INR 1.00, APTT 28.0 03/29/21 10:33: WBC 4.90, Hgb 13.3, Hct 39.1, Plt Count 226 03/29/21 10:33: Sodium 139, Potassium 4.2, BUN 19 H, Creatinine 0.78, Glucose 89 <Michael Moura - Last Filed: 03/29/21 17:52> - Studies Laboratory Data (last 24 hrs) 03/29/21 10:33: PT 11.5, INR 1.00, APTT 28.0 03/29/21 10:33: WBC 4.90, Hgb 13.3, Hct 39.1, Plt Count 226 03/29/21 10:33: Sodium 139, Potassium 4.2, BUN 19 H, Creatinine 0.78, Glucose 89 <Cliff Hyman - Last Filed: 03/29/21 21:23> Assessment and Plan - Plan --Left sided weakness. MRI brain unremarkable for any acute intracranial abnormally. PT eval and treat. Fall precautions. Neurology consulted. MRI C-spine and Lumbar puncture pending. Will await further recommendations from neurologist. --Slurred speech and Mild expressive aphasia. No acute intracranial abnormality noted on MRI. Speech therapy eval and treat. Further management per neurologist. --GERD . Continue home medication --History of Herpes. Continue home medications. --Neck pain\\Stiffness. MRI C-spine and Lumbar puncture pending. Will manage pain with current pain medication regimen. -- Hx of Macular degeneration\\Glaucoma. Continue home medications. --Elevated blood pressure. Will manage BP with labetalol p.r.n.. --DVT prophylaxis with Lovenox subQ - Advance Directives Does patient have a Living Will: Yes Does patient have a Durable POA for Healthcare: Yes <Michael Moura - Last Filed: 03/29/21 17:52> - Plan Patient reported: ~2 months ago - started with L foot dragging while she walked, has fallen 3 times over the last 2 months. Feels like she falls towards left. ~2 weeks ago - L leg and L arm became weak and fell, has been having decreased strength of L arm, inability to hold a bottle of water or coffee cup Yesterday/overnight - developed severe weakness if LLE, LUE, and face with associated dysarthria and weakness turning head. h/o "TIA" in 2000 - pt was bedridden and wheelchair bound for several years, requiring PT before symptoms resolved. States she believes this occurred shortly after or while hospitalized with pneumonia. Patient reports she did receive the [employer] COVID vaccine in early December (~2 weeks before symptoms began) neuro consulted will obtain MRI c-spine. unclear etiology of symptoms. MRI and MRA negative ?demyelinating process will obtain serum protein electrophoresis patient will need lumbar puncture if worsens may need high dose steroids / ?IVIG Time Spent Managing Pts Care (In Minutes): 75 <Cliff Hyman - Last Filed: 03/29/21 21:23>
[2021-03-29 17:22] LABS: Thyroid Stimulating Hormone 1.41 uIU/mL (0.360-3.740)
[2021-03-29] MEDS ORDERED: MORPHINE 4 MG/ML SYR IV PRN (17:45)
[2021-03-29] MEDS: NA CHLORIDE 0.9% 1,000 ML IV SCH (18:00)
[2021-03-29] MEDS ORDERED: NA CHLORIDE 0.9% 1,000 ML ONE (18:13)
[2021-03-30] MEDS: NA CHLORIDE 0.9% 1,000 ML IV SCH ×3 (04:00→20:38)
[2021-03-30 04:27] LABS: Basophils % 1.2 % (0-1.3); Hematocrit 41.7 % (36.0-45.0); Lymphocytes % 31.6 % (15.3-44.8); MPV 9.5 fL (7.6-11.3); RBC Red Blood Cell Count 4.22 M/uL (3.86-4.86)
[2021-03-30 04:35] LABS: Magnesium 2.2 mg/dL (1.8-2.4); Potassium 4.1 mmol/L (3.5-5.1)
[2021-03-30] MEDS ORDERED: KETOROLAC 30 MG/ML INJ IV ONE (05:22)
[2021-03-30] MEDS ORDERED: methocarbamoL 500 MG TAB PO PRN (08:23)
[2021-03-30] MEDS ORDERED: HOME MED 1 EA UNK (Mecobalamin [B12 Active] 1,000 MCG Tab.Chew) PO SCH (08:30)
[2021-03-30] MEDS ORDERED: HOME MED 1 EA UNK (Vitamin D3/Vitamin K2 (Mk4) [K2 Plus D3 Tablet] Tablet) PO SCH (09:00)
[2021-03-30] MEDS: OCUVITE (VIT A,C & E/LUTEIN/MINERAL) TABLET PO SCH ×2 (09:00→20:39)
[2021-03-30] MEDS: ASCORBIC ACID 500 MG TABLET PO SCH ×2 (09:00→20:39)
[2021-03-30] MEDS: VITAMIN E 400 IU CAP PO SCH (09:00)
[2021-03-30] MEDS ORDERED: ASCORBIC ACID PO SCH (09:00)
[2021-03-30] MEDS: ENOXAPARIN 40 MG/0.4 ML SQ SCH (09:00)
[2021-03-30] MEDS ORDERED: HOME MED 1 EA UNK (Cyclosporine [Restasis] Droperette) EACH EYE SCH (09:00)
[2021-03-30] MEDS: LACTOBACILLUS/ACIDOPHILUS TAB PO SCH (09:00)
[2021-03-30] MEDS ORDERED: DORZOLAMIDE 2% OPTH (10 ML) OPTH SCH ×2 (09:00→14:00)
[2021-03-30] MEDS: PANTOPRAZOLE 40MG TABLET PO SCH (09:00)
[2021-03-30] MEDS ORDERED: HOME MED 1 EA UNK (Cholecalciferol (Vitamin D3) [D3-50] 1,250 MCG Capsule) PO SCH (09:00)
[2021-03-30] MEDS ORDERED: COLLAGEN HYDR PO SCH (09:00)
--- NOTE | 2021-03-30 10:20 | RAD REPORT ---
EXAM DESCRIPTION: MRI - C Spine Wo Cont - 03/30/2021 9:55 am CLINICAL HISTORY: Left-sided weakness COMPARISON: October 2020 x-ray TECHNIQUE: Magnetic resonance imaging of the cervical spine was obtained with coronal and sagittal r econstruction FINDINGS: Mild spondylosis C2-3 Mild posterior subluxation C3 on C4 unchanged. Disc bulge and osteophytes. Thecal sac measures 7 mill imeters. Neural foramina are patent. Anterior fusion involves C4 through C6 by plate, screws and bone plugs. Mild spondylosis is present. Facet hypertrophy C6-7. Mild narrowing of the neural foramina. Thecal sac is normal caliber. C7-T1 unremarkable The spinal cord is normal caliber and signal. No abnormal signal within the bones is noted. IMPRESSION: Spondylosis C3-4 resulting in mild to moderate central spinal stenosis. Mild posterior s ubluxation is present as well
[2021-03-30 10:28] LABS: Folic Acid, (Folate) 15.6 ng/mL (3.1-17.5)
--- NOTE | 2021-03-30 12:46 | RAD REPORT ---
EXAM DESCRIPTION: RAD - Lumbar Puncture For Dx - 03/30/2021 12:18 pm CLINICAL HISTORY: Left-sided weakness/slurred speech COMPARISON: None FINDINGS: The risks, benefits and alternatives to the procedure were explained to the patient and in formed consent obtained. The patient was placed prone into the fluoroscopy suite. The skin and subcutaneous tissues were anest hetized with lidocaine. Under fluoroscopic guidance a 22 gauge spinal needle was advanced into the th ecal sac at L2-3 level. 10 cc of CSF was removed and sent to the lab. Patient experienced no immediate complication One fluoroscopic spot image obtained. Fluoroscopy time 0.7 minutes IMPRESSION: Lumbar puncture
[2021-03-30 13:17] LABS: CSF Glucose 50 mg/dL (40-70)
[2021-03-30 13:43] LABS: Appearance CLEAR (CLEAR); Body Fluid Source CSF; Color of fluid Colorless (COLORLESS)
[2021-03-30 13:44] LABS: Appearance CLEAR (CLEAR); Body Fluid Source CSF; Body Fluid WBC 3 /mm^3; Color of fluid Colorless (COLORLESS)
[2021-03-30 13:44] LABS: Body Fluid WBC 3 /mm^3
[2021-03-30] MEDS ORDERED: METHYLPREDNISOLONE 40 MG INJ IV ONE (15:58)
[2021-03-30] MEDS ORDERED: METHYLPRED NA SUC 1,000 MG in NA CHLORIDE 0.9% 100 ML IV STA (16:05)
[2021-03-30] MEDS ORDERED: METHYLPRED NA SUC 1,000 MG in NA CHLORIDE 0.9% 100 ML IV ONE (16:15)
[2021-03-30 16:28] LABS: Urine Appearance CLEAR (Clear); Urine Bilirubin NEGATIVE (Negative); Urine Blood NEGATIVE (Negative); Urine Color YELLOW (Yellow); Urine Glucose NEGATIVE (Negative); Urine Protein NEGATIVE (Negative); Urine Specific Gravity 1.015 (1.005-1.030); Urine Urobilinogen 0.2 mg/dL (0.2-1.0); Urine pH 6.5 (5.0-7.0)
[2021-03-30 16:46] LABS: Urine Microscopic Reflex ORDER UMIC
[2021-03-30 16:58] VITALS: BMI 43.5
[2021-03-30 17:03] LABS: Urine Bacteria <20 /HPF (<20); Urine Mucus 1+ /HPF (NONE SEEN); Urine RBC <5 /HPF (NONE SEEN)
[2021-03-30] MEDS ORDERED: KETOROLAC 30 MG/ML INJ IV PRN (17:28)
--- NOTE | 2021-03-30 19:20 | P.PN ---
Subjective Date of Service: 03/30/21 Chief Complaint: Left sided weakness Patient when left-sided. She started stamerring. Nurse also reported left eye droop. Patient seen by neurology. MRI of the brain shows no acute stroke. Cervical spine imaging shows mild to moderate is central canal stenosis. Lumbar puncture performed. Physical Examination - Vital Signs Temperature: 98.3 F Blood Pressure: 139/64 Pulse: 75 Respirations: 16 Pulse Ox (%): 97 - Physical Exam General: Alert, In no apparent distress HEENT: PERRLA, Mucous membr. moist/pink, EOMI Neck: Supple, 2+ carotid pulse no bruit, JVD not distended Respiratory: Clear to auscultation bilaterally, Normal air movement Cardiovascular: No edema, Regular rate/rhythm, Normal S1 S2 Gastrointestinal: Normal bowel sounds, Soft and benign, Non-distended, No tenderness Musculoskeletal: No swelling, No tenderness Integumentary: No rashes, No erythema Neurological: Other (Inconsistent result on motor examination. Patient sometimes able to keep in her left arm up, sometimes not able to lift it.) - Studies Laboratory Data (last 24 hrs) 03/30/21 03:37: Sodium 143, Potassium 4.1, BUN 16, Creatinine 0.73, Glucose 85, Magnesium 2.2, Triglycerides 74, Cholesterol 178, HDL Cholesterol 73 H, Cholesterol/HDL Ratio 2.44 03/30/21 03:37: WBC 6.30 D, Hgb 13.9, Hct 41.7, Plt Count 231 Microbiology Data (last 24 hrs): 03/30/21 11:34 Cerebral Spinal Fluid Gram Stain - Final Assessment And Plan - Current Problems (Diagnosis) (1) Stroke-like symptoms Current Visit: Yes Status: Acute (2) GERD (gastroesophageal reflux disease) Current Visit: Yes Status: Acute - Plan Patient with inconsistent results and motor examination. Sometimes able to keep the left arm up, other times not able to left arm. Neurology input appreciated. Conversion disorder suspected. G[place] not likely given the asymmetry of her symptoms. Lumbar puncture results reviewed. It shows mildly elevated CSF protein, and a WBC of 3. Glucose normal. Neurology recommended a trial of high-dose steroid. Patient was started on IV Solu-Medrol but was complaining of pain and heat in the arm and reported allergy to steroid so the steroid was discontinued.. Continue neuro checks. PT evaluation. Monitor for worsening symptoms. Neurology to follow.
[2021-03-30] MEDS: HOME MED 1 EA UNK (Cyclosporine [Restasis] Droperette) OPTH SCH (20:38)
[2021-03-30] MEDS: DOCUSATE SODIUM 50 MG/5 ML PO SCH (20:39)
[2021-03-30] MEDS: EYE OPTH SCH (20:39)
[2021-03-30] MEDS: DORZOLAMIDE 2% OPTH SCH (20:39)
[2021-03-30] MEDS ORDERED: LATANOPROST 0.005% EYE DROPS OPTH SCH (21:00)
[2021-03-30] MEDS ORDERED: LATANOPROST 0.005% 2.5ML OPTH OPTH SCH (21:00)
--- NOTE | 2021-03-30 21:22 | CON ---
Reason For Consultation: Consultation called by Dr. Henning because of left-sided weakness. History Of Present Illness: Mrs. Shah is a 71-year-old patient, who is admitted to [facility] with progressive left-sided weakness. Her symptoms began somewhere around a month ago with ju st left foot weakness. She did say that she had few weeks previously received her dosage of a cortez virus vaccine prior to onset of her symptoms. Over several days, the weakness progressed from the le ft foot, the left leg, the left thigh, and then left arm and face. She had slurred speech and would lose balance, falling to the left side. She has fallen multiple times including at her son's house. She came to [facility] on the 19 of March and had a brain MRI, which showed no acute ischem ic or hemorrhagic change. MRA of her head and neck also showed no acute findings. MRI was remarkabl e for small vessel ischemic disease. Cervical spine MRI also showed no significant abnormalities, bu t there was spondylosis at C3-4 with moderate spinal canal stenosis. Those results do not explain e patient's symptoms. Consideration is made for an ascending paralysis related to possible Guillain- [place] syndrome. However, her right side is completely unaffected and only affected her left side. A s a result, she did get a lumbar puncture study done. Lumbar puncture showed normal white blood cell count of 3, red blood cells were 10, glucose 50, protein 48, and there are pending studies. COVID-1 9 test was negative. Complete blood count with differential is completely normal multiple times. Co agulation panel completely normal. Her basic metabolic panel did show a slightly elevated chloride o f 110, glucose was normal at 85. Calcium and magnesium were normal. Hemoglobin A1c 5.3. C-reactive protein was normal at 2.9. Thyroid function study was normal. Folic acid level normal at 15.6, tot al cholesterol normal at 178, LDL cholesterol 90, HDL cholesterol of 73. Urinalysis showed 1+ estera se, 1+ ketones, 5-10 red blood cells, and 5-10 squamous epithelial cells. Since her hospital admissi on, the patient has had very unusual stuttering speech and intermittent apparent left-sided weakness where the arm actually appeared to move more at times, at least by my observation while I was in the room compared to actually when voluntarily asked to move the left arm, seem to not be able to move, b ut at 1 point, the patient did bend the left arm more than when asked to do so voluntarily and this w as just when she was actually moving the arm to pull an object. Past Medical History: Gastroesophageal reflux, herpes. Allergies: PENICILLIN, STEROIDS, CODEINE. Family History: Noncontributory. Social History: No alcohol, tobacco, or IV drug use. The patient lives with her and family is involved. Review of Systems: Aside from mentioned, no recent fevers, chills, nausea, vomiting, myalgias, arthralgias, rash, headac he, weight change. No psychiatric complaints. No gastrointestinal or genitourinary issues. Physical Examination: Vital Signs: Blood pressure 139/64, pulse 75, respiratory rate 16, temperature 98.3, oxygen saturati on 97%. Weight 223 pounds, height 5 feet, BMI 43.6. General: Ms. Shah is resting in bed. She appears to have no acute distress. She has a stutteri ng speech that does not appear to be anatomical. Neurologic: Cranial nerves again show symmetric face with equal movement of the upper and lower face on speaking. No significant facial symmetry, although at times she does seem to have less movement of the left face, but not quite reproducible. She does report decreased to light touch in the left f kwasi compared to the right side in the upper, lower, and middle distributions. In terms of the rest o f her cranial nerves, no focal deficits there. In the motor examination, proximally left upper extre mity 2 to 3/5, distally 2/5 and on the right upper extremity, 5/5 proximally and distally. In the lo wer extremity on the left, no significant movement except for around 2/5 strength proximally, 1/5 dis tally. On the right, 5/5 proximally and distally. Reflexes are depressed in the upper and lower ext remities bilaterally, could not be listed at the patellar heels. Sensation, stocking-glove loss to l ight touch and temperature. Coordination in the right upper and lower extremity intact. She was enrique luated by the physical therapist and it was noted the patient had stuttering speech and reported no a bility to move the upper and lower left side. The patient did not have any yun-ey-bsdwg or transfers done at the time and the physical therapist will return in the morning. Assessment: Ms. Shah is a 71-year-old patient with left-sided weakness of unclear etiology. Her brain and cervical spine MRIs do not explain her symptoms. Her lumbar puncture does not necessarily explain her symptoms, but she does have slightly elevated protein. Possibility of Guillain-[place] ma y still be considered. In terms of treatment, she is now receiving a gram of Solu-Medrol daily, whic h she will receive for at least 3 days. She also has a DVT prophylaxis with Lovenox given the weakne ss of the left side. She is treated with Toradol for pain. She has a muscle relaxant for spasms, wh ich may be considered decreasing given the possibility of weakness on that side and maybe if she does develop respiratory issues, that may have to be addressed or reduced. Plan: We will follow up the patient's EEG and the rest of her lumbar puncture studies. Note, she wi ll likely require ongoing physical therapy even if there is a somatization component in her diagnosis . MALATHI/LEAH Voice ID: [id number] Report ID: [id number]
[2021-03-31] MEDS: NA CHLORIDE 0.9% 1,000 ML IV SCH ×3 (06:28→09:57)
[2021-03-31] MEDS: HOME MED 1 EA UNK (Cyclosporine [Restasis] Droperette) OPTH SCH (08:33)
[2021-03-31] MEDS: DORZOLAMIDE 2% OPTH SCH (08:34)
[2021-03-31] MEDS: EYE OPTH SCH (08:34)
[2021-03-31] MEDS: OCUVITE (VIT A,C & E/LUTEIN/MINERAL) TABLET PO SCH (08:35)
[2021-03-31] MEDS: PANTOPRAZOLE 40MG TABLET PO SCH (08:35)
[2021-03-31] MEDS: DOCUSATE SODIUM 50 MG/5 ML PO SCH (08:35)
[2021-03-31] MEDS: ASCORBIC ACID 500 MG TABLET PO SCH (08:35)
[2021-03-31] MEDS: LACTOBACILLUS/ACIDOPHILUS TAB PO SCH (08:35)
[2021-03-31] MEDS: VITAMIN E 400 IU CAP PO SCH (08:35)
[2021-03-31] MEDS: ENOXAPARIN 40 MG/0.4 ML SQ SCH (08:50)
[2021-03-31 10:30] VITALS: O2SAT 98
--- NOTE | 2021-03-31 12:03 | EKG ---
Test Date: 2021-03-29 Test Time: 10:43:25 Ball Warper Tender: CANDELARIA MEASUREMENT RESULTS: Intervals: Rate: 62 MN: 142 QRSD: 74 QT: 382 QTc: 387 [place]: P: 22 MN: 142 QRS: -17 T: 0 INTERPRETIVE STATEMENTS: Normal sinus rhythm Minimal voltage criteria for LVH, may be normal variant Inferior infarct, age undetermined Cannot rule out Anterior infarct, age undetermined Abnormal ECG Compared to ECG 07/05/2003 04:14:00 Left ventricular hypertrophy now present Myocardial infarct finding now present Electronically Signed On 03-31-21 11:54:44 CDT by Ricardo Norwood
[2021-03-31 12:23] VITALS: BP 122/58; TEMP 97.1
[2021-03-31] MEDS ORDERED: predniSONE 20 MG TAB PO ONE (12:23)
[2021-04-02 05:59] LABS: Albumin, (SPE) 3.5 g/dL (3.8-4.8); Alpha-1-Globulins 0.3 g/dL (0.2-0.3); Alpha-2-Globulins 0.8 g/dL (0.5-0.9); Gamma Globulins 0.9 g/dL (0.8-1.7); INTERPRETATION REPORT
--- NOTE | 2021-04-04 18:18 | DS ---
Date of Discharge: 03/31/2021 Disposition: Discharged to go home. Physical Examination: HEENT: Unremarkable. Lungs: Clear to auscultation. Heart: Sounds normal. Abdomen: Soft. Bowel sounds normal. No guarding, rigidity, tenderness, or distention. Extremity: No leg edema. Neurological: No focal neurological deficits noted. No focal weakness and her power was normal and equal in both upper and lower extremities. Discharge Medications And Instructions: 1.Continue all prior home medication. 2.The patient to take prednisone 10 mg take 3 tablets by mouth 2 times a day for 10 days, then 3 tab lets by mouth daily for 4 days, then 2 tablets daily for 4 days, then 1 tablet daily for 4 days, then 1/2 tablet daily for 4 days, then stop. Take it with food. 3.Follow up at my office next week. Laboratory Data: Labs done during this hospitalization upon admission; white count 4.9, hemoglobin 1 3.3, platelets 226. Sed rate 16. Sodium 139, potassium 4.2, chloride 107, bicarb 27, BUN 19, creati nine 0.78, glucose 89. Troponin less than 0.02. TSH 1.4. Serum protein electrophoresis was negativ e and no M-spike detected and normal electrophoresis pattern noted. Her LDL cholesterol was 90. Vit atkinson B12 1359, folic acid level 15.6. Urine culture remained negative. CSF culture was negative. C SF showed 3 WBC, 10 RBC, and CSF glucose was 50, normal protein was 48 slightly elevated. COVID-19 t est was negative. Brain MRI from 02/27/2021 was no acute intracranial changes, negative. MRA of [facility] k was negative, no significant or suspicious finding. CAT scan of the brain was negative for any acu te intracranial changes. Chest x-ray, no acute intrathoracic changes. CT angiogram of the head was negative for any acute abnormality. MRA of head also came back showing minimal atherosclerotic ma es in left internal carotid artery, no other significant findings and MRI of cervical spine showed ev idence of spondylosis at C3-4 resulting in [id number]-[id number] central spinal stenosis, mild posterior s ubluxation is present. Electrocardiogram; sinus rhythm, minimal voltage criteria for LVH. Hospital Course: This is a 71-year-old female patient, admitted to the hospital with increasing weak ness of the left side of her body. The patient started to have some weakness of the left foot approx imately 1 month ago and over period of last 1 month, she has noted that weakness has progressed from left foot to entire left lower extremity and then left hand to entire left upper extremity and left s theodore of her face. She also reported having some trouble with her speech. She reported some fall, but no head injury and no loss of consciousness. With this worsening problem, she came into emergency r oom. After she was evaluated, she was admitted to the hospital. In my absence, hospitalist took car e of this patient and Dr. Moscoso saw her from Neurology Service. There was no definite evidence of stroke. Her clinical exam was inconsistent as I have reviewed Dr. Moscoso's note that at some poin t, Dr. Moscoso noted her that while he was in the room, the patient was spontaneously moving her lef t upper extremity, but at the same time when he asked her to move left upper extremity, she was not a ble to move it as well. At the same time, her stuttering of the speech was also variable, so her phy sical exam findings were not consistent. Dr. Moscoso was not 100% clear regarding the etiology of h er left-sided weakness and the patient had her last dose of COVID-19 vaccine 1 month ago or so and he considered possibility of Guillain-[place] syndrome and the patient was given Solu-Medrol 1 g IV daily while in the hospital. The day I saw her, she was feeling fine. Her speech was normal. Her left-s ided weakness had completely resolved. So, her physical exam was unremarkable when I saw her and Dr. Moscoso has released her to go home. So at this point, etiology of her left-sided weakness is not clear, but it is important to keep in mind that the patient has been under my care for last several y ears, but before she came to see me, my re-collection is while she was seeing previous physician, she had similar episode of weakness of one side of her body, but it was never diagnosed as having stroke . The patient was discharged to go home in stable condition. Final Diagnoses: 1.Left-sided hemiplegia, resolved. 2.Osteoarthritis, multiple sites. 3.Hyperlipidemia. 4.Gastroesophageal reflux disease. 5.Chronic fatigue. 6.Depression. 7.Glaucoma. EDWARD/MODL Voice ID: [id number] Report ID: [id number]
== END 2021-03-31 14:30 | disposition home or self-care (01) | DRG 95 ==
LOC: ER 10:06 → ERHOLD 13:34 → 2ND 15:25 → OBSVTOIN 03-30 13:41
PROVIDERS: ADMIT Internal Medicine; ATTEND Internal Medicine
PROC: 009U3ZX Drainage of Spinal Canal, Percutaneous Approach, Diagnostic (ICD-10-PCS; principal; 2021-03-29)
DX: G61.0 Guillain-Barre syndrome (principal); G81.94 Hemiplegia, unspecified affecting left nondominant side; R47.01 Aphasia; I10 Essential (primary) hypertension; H35.30 Unspecified macular degeneration; H40.9 Unspecified glaucoma; M54.2 Cervicalgia; E78.5 Hyperlipidemia, unspecified; M19.90 Unspecified osteoarthritis, unspecified site; F32.9 Major depressive disorder, single episode, unspecified; H02.402 Unspecified ptosis of left eyelid; K21.9 Gastro-esophageal reflux disease without esophagitis; R53.82 Chronic fatigue, unspecified; R51.9 Headache, unspecified; R42 Dizziness and giddiness; R47.81 Slurred speech; Z86.73 Personal history of transient ischemic attack (TIA), and cerebral infarction without residual deficits; Z88.0 Allergy status to penicillin; Z90.49 Acquired absence of other specified parts of digestive tract; Z88.5 Allergy status to narcotic agent; Z20.822 Contact with and (suspected) exposure to COVID-19
CPT/HCPCS: 36415; 70450; 70496; 70544; 70549; 70553; 71045; 72141; 77003; 80048; 80061; 81003; 81015; 82565; 82607; 82746; 82947; 83036; 83735; 84132; 84165; 84439; 84443; 84484; 85025; 85610; 85652; 85730; 86140; 86592; 87070; 87086; 87088; 89050; 93005; 96365; 97110; 97112; 97116; 97161; 99285; A9577; J1650; J2930; J7030; J7512; Q9967; U0003

== ENCOUNTER 2021-06-23 13:22 | Emergency (ER) | payer OTHER ==
--- OUTSIDE RECORDS SUMMARY | 2021-06-23 13:25 | XMS REPORT | Continuity of Care Document ---
:1950 Author Organization [facility] t Address [address] [place] [address] Care Team Providers Name Role Phone Pcp MD Primary Care Physician Unavailable Mo HAZEL Attending Clinician Problems Condition Condition Condition Status Onset Resolution Last Treating Co mments Source Name Details Category Date Date Treatment Clinician Date GERD GERD Disease Active 2016-10 [facility] (gastroeso (gastroeso 12-26 st phageal phageal 00:00: Hospita reflux reflux 00 l disease) disease) Postoperat Postoperat Disease Active Overview : [facility] daphney visit daphney visit 04-27 Formattin s t 00:00: g of this Hospita 00 note l might be different from the original. 7 mons post op -DOS-07/31 07/14-ACDF C4-C6, currently in PT, pain to back of neck into L shoulder. Would like pt to stay on course with PT and f/u in 6 months. Neck Neck Disease Active [facility] strain strain 04-27 00:00: Hospita 00 l Contusion Contusion Disease Active Met [facility]odi of of 04-27 thoracic thoracic 00:00: Hospit a wall wall 00 l Allergies, Adverse Reactions, Alerts Allergy Allergy Status Severity Reaction(s) Onset Inactive Treating Comm ents Source Name Type Date Date Clinician Codeine Propensi Active Itching Method i ty to 04-27 adverse 00:00: Hospita reaction 00 l s to drug Other Propensi Active Rash steroid Methodi ty to 04-27 st adverse 00:00: Hospita reaction 00 l s Penicill Propensi Active Rash Method i ins ty to 04-27 st adverse 00:00: Hospita reaction 00 l s to drug Family History Family Member Diagnosis Comments Start Date Stop Date Source Natural father Cancer [facility] Natural mother Diabetes [facility] Natural mother Heart disease [facility] Social History Social Habit Start Date Stop Date Quantity Comments Source Sex Assigned At [facility] Alcohol intake 2017-10-26 2017-10-26 Current non-drinker [facility] 00:[facility]:00 00:00:00 of alcohol Hospital (finding) Tobacco use and 2017-10-26 2017-10-26 Never used [facility]00 Hospital Alcohol Comment 2017-10-25 2017-10-25 Drinks wine Method[facility] t 00:00:00 00:00:00 occasionally Hospital Smoking Status Start Date Stop Date Source [facility] smoker [facility] Medications Ordered Filled Start Stop Current Ordering Indication Dosage Frequency Signature Comments Components Source Medication Medication Date Date Medication? Clinician (SIG) Name Name cycloSPORIN 2016-10 Yes Apply to [facility] E (RESTASIS 2-[address] MULTIDOSE) 19:55: Hospita 0.05 % 02 l drops ALPHAGAN P 2015-10 Yes INSTILL 1 [facility] 0.1 % drops 2-[address] 00:00: BOTH EYES Hospita 00 EVERY 12 l HOURS valACYclovi 2015-10 Yes 500mg QD Take 500 M ethodi r (VALTREX) 1-[address] 500 MG 00:00: mouth once Hospi ta tablet 00 daily. l famotidine 2015-10 Yes 20mg QD Take 20 mg M ethodi (PEPCID) 20 1-[address] MG tablet 00:00: once Hospita 00 daily. l latanoprost 2015-10 Yes PUT 1 DROP [facility] (XALATAN) 0-[address] 0.005 % 00:00: EYES AT Hospita ophthalmic 00 BEDTIME l solution Procedures This patient has no known procedures. Plan of Care Planned Activity Planned Date Details Comments Source Future Scheduled 2020-06-30 INFLUENZA VACCINE (#1) C [...] (2 of 2 - PPSV23)] Future Scheduled [address] [facility] 00:00[facility]00 [facility] breast (procedure) [code = 391846695] Future Scheduled [address] [facility] - Test 00:00:00 [facility] colon (procedure) [code = 360872134] Future Scheduled COVID-19 VACCINE (1) [facility] Test [code = COVID-19 VACCINE (1)] Future Scheduled BREAST CANC[facility] Test SCREENING [code = BREAST CANCER SCREENING] Future Scheduled [facility]ONOSCOPY [facility] [code = COLONOSCOPY SCREENING] Future Scheduled SHINGLES VACCINES (#1) [facility] Test [code = SHINGLES VACCINES (#1)] Future Scheduled 65+ [facility]OCOCCAL [facility] Test VACCINE (1 of 1 - PPSV23) [code = 65+ PNEUMOCOCCAL VACCINE (1 of 1 - PPSV23)] Future Scheduled INFLUENZA VACCINE [facility] Test [code = INFLUENZA VACCINE] Encounters Start End Encounter Admission Attending Care Care Encounter Source Date/Time Date/Time Type Type Clinicians Facility Department ID 2019-08-05 2019-08-05 SHAYAN Hawthorne [id number] 12:51:09 13:32:29 Visit Yasmin AMBULATOR [id number] Y [id number] 2019-07-02 2019-07-02 SHAYAN Hawthorne [id number] 10:30:43 11:41:19 Visit Yasmin AMBULATOR [id number] Y [id number] 2019-06-17 2019-06-17 SHAYAN Hawthorne [id number] 12:47:15 13:25:21 Visit Yasmin AMBULATOR [id number] Y [id number] Results Test Description Test Time Test Comments Results Result Sourc e Comments FL, ARISTIDES, SWALLOW 2019-03-13 Reason for FINAL REPORT PATIENT FUNCTION, WITH 11:13:00 Exam:->r07.0 ID: [id number] CINE OR VIDEO Modified barium swallow exam [...] MDReport Verified Date/Time: 03/13/2019 11:13:50 Reading Location: [address] Radiology Reading Room
--- NOTE | 2021-06-23 14:19 | RAD REPORT ---
EXAM DESCRIPTION: RAD - Chest Single View - 06/23/2021 2:13 pm CLINICAL HISTORY: COUGH Chest pain. COMPARISON: <Comparisons> FINDINGS: Portable technique limits examination quality. The lungs are grossly clear. The heart is normal in size. No displaced fractures.Cervical spine hardw are plate. IMPRESSION: No acute intrathoracic process suspected.
[2021-06-23] MEDS ORDERED: BENZONATATE 100 MG CAP PO ONE (17:54)
[2021-06-23] MEDS ORDERED: METHYLPREDNISOLONE 125 MG INJ ONE (17:54)
[2021-06-23] MEDS ORDERED: NA CHLORIDE 0.9% 250 ML ONE (17:55)
[2021-06-23] MEDS ORDERED: CASIRIVIMAB/IMDEVIMAB 10 ML VIAL ONE (17:55)
[2021-06-23 18:26] LABS: Absolute Lymphocytes (CBC) 1.7 K/uL (0.7-4.9); Basophils % 0.7 % (0-1.3); Hematocrit 42.6 % (36.0-45.0); Lymphocytes % 41.3 % (15.3-44.8); MPV 8.7 fL (7.6-11.3); RBC Red Blood Cell Count 4.44 M/uL (3.86-4.86)
--- NOTE | 2021-06-23 18:34 | RAD REPORT ---
EXAM DESCRIPTION: CT - Chest For Pe Angio - 06/23/2021 6:04 pm CLINICAL HISTORY: Chest pain. Cough;SOB COMPARISON: No comparisons TECHNIQUE: CT angiogram of the pulmonary arteries was performed with MIP. All CT scans are performed using dose optimization technique as appropriate and may include automated exposure control or mA/KV adjustment according to patient size. FINDINGS: No evidence of pulmonary thromboembolism. No acute aortic finding demonstrated. Mild bilateral ground-glass lung opacities are present most compatible with COVID-19 infection. No significant pericardial or pleural fluid. No concerning bony finding. IMPRESSION: No evidence of pulmonary thromboembolism. Mild bilateral ground-glass lung opacities likely represent COVID-19 infection.
[2021-06-23 20:13] LABS: ALT/SGPT 27 U/L (12-78); AST/SGOT 25 U/L (15-37); Albumin 3.5 g/dL (3.4-5.0); Alkaline Phosphatase 74 U/L (45-117); BUN Blood Urea Nitrogen 13 mg/dL (7-18); Bicarbonate 27 mmol/L (21-32); Bilirubin Direct 0.1 mg/dL (0-0.2); Bilirubin Total 0.4 mg/dL (0.2-1.0); Ferritin 151.3 ng/mL (8-388); Glucose Level 84 mg/dL (74-106); NT PRO-BNP 54 pg/mL (<125); Potassium 3.9 mmol/L (3.5-5.1); Protein, Total 7.1 g/dL (6.4-8.2); Sodium Level 138 mmol/L (136-145); Troponin (Emerg Dept Use Only) < 0.02 ng/mL (0.0-0.045)
[2021-06-23 20:23] LABS: Protime INR 1.03
--- NOTE | 2021-06-23 20:27 | ER ---
Nurse's Notes [facility] Name: Beryl Shah Age: 71 yrs Sex: Female : 1950 Arrival Date: 06/23/2021 Time: 13:28 Bed 13 Private MD: Diagnosis: Other viral pneumonia;SARS-associated coronavirus as the cause of diseases classified elsewhere Presentation: 06/23 13:38 Chief complaint: Patient states: Diagnosed with Covid a week ago. SOB is getting worse. ss Coronavirus screen: Client presents with at least one sign or symptom that may indicate coronavirus-19. Ebola Screen: Patient denies exposure to infectious person. Patient denies travel to an Ebola-affected area in the 21 days before illness onset. Initial Sepsis Screen: Does the patient meet any 2 criteria? RR > 20 per min. HR > 90 bpm. Does the patient have a suspected source of infection? No. Patient's initial sepsis screen is negative. Risk Assessment: Do you want to hurt yourself or someone else? Patient reports no desire to harm self or others. Onset of symptoms was June 16, 2021. 13:38 Method Of Arrival: Ambulatory ss 13:38 Acuity: ANDREA 3 ss Historical: - Allergies: 13:41 Codeine; ss 13:41 PENICILLINS; ss 13:41 steroids; ss - PMHx: 13:41 Gastric Reflux; HERPES; ss - Immunization history:: Client reports receiving the Gage \T\ Gage single-dose vaccine. - Social history:: Smoking status: Patient denies any tobacco usage or history of. Screenin:36 Abuse screen: Denies threats or abuse. Nutritional screening: No deficits noted. ll1 Tuberculosis screening: No symptoms or risk factors identified. Fall Risk IV access (20 points). Total Bob Fall Scale indicates No Risk (0-24 pts). Assessment: 17:00 General: Appears ill, Behavior is calm, cooperative, appropriate for age. Pain: Denies ll1 pain. Neuro: No deficits noted. Cardiovascular: No deficits noted. Heart tones S1 S2 Capillary refill < 3 seconds Clubbing of nail beds is absent JVD is absent Patient's skin is warm and dry. Rhythm is sinus tachycardia. Respiratory: Reports shortness of breath cough that is labored breathing Airway is patent Trachea midline Respiratory effort is even, labored, Respiratory pattern is symmetrical, tachypnea Breath sounds with wheezes bilaterally. Onset: The symptoms/episode began/occurred today, the patient has mild shortness of breath. GI: No deficits noted. : No deficits noted. 18:00 Reassessment: No changes from previously documented assessment. Patient and/or family ll1 updated on plan of care and expected duration. Pain level reassessed. Patient is alert, oriented x 3, equal unlabored respirations, skin warm/dry/pink. 18:30 Reassessment: No changes from previously documented assessment. Patient and/or family ll1 updated on plan of care and expected duration. Pain level reassessed. Back from CT. Increased wheezing noted. CORAZON Wright informed. O2 sat 99% RA. 21:04 Reassessment: Patient is alert, oriented x 3, equal unlabored respirations, skin bb warm/dry/pink. pt verbalized understanding of and agrees to plan of care discharge instructions given pt ambulated with steady gait. Vital Signs: 13:38 BP 135 / 100; Pulse 98; Resp 24; Temp 98.1(TE); Pulse Ox 96% ; Weight 101.15 kg; Height ss 5 ft. 1 in. (154.94 cm); 18:35 BP 109 / 76; Pulse 99; Resp 24; Pulse Ox 99% on R/A; ll1 19:48 BP 141 / 74; Pulse 79; Resp 18; Temp 98.4; Pulse Ox 100% ; Pain 0/10; wg 21:05 BP 149 / 82; Pulse 76; Resp 20 S; Temp 98.2(O); Pulse Ox 97% on R/A; bb 13:38 Body Mass Index 42.14 (101.15 kg, 154.94 cm) ED Course: 13:28 Patient arrived in ED. cl3 13:41 Triage completed. ss 13:41 Arm band placed on right wrist. ss 14:13 XRAY Chest (1 view) In Process Unspecified. EDMS 15:48 Jose Moyer PA is PHCP. cp 15:48 Jose Desai MD is Attending Physician. cp 17:04 Marcus Ruby, PRINCE is Primary Nurse. ll1 18:04 CT Chest For PE Angio In Process Unspecified. EDMS 18:10 Inserted saline lock: 20 gauge in right antecubital area, using aseptic technique. ll1 Blood collected. 18:19 EKG done, by ED staff, reviewed by Jose CHANDRA. em1 18:38 Patient has correct armband on for positive identification. Bed in low position. Call ll1 light in reach. Side rails up X 1. Pulse ox on. NIBP on. 20:55 No provider procedures requiring assistance completed. IV discontinued, intact, wg bleeding controlled, No redness/swelling at site. Pressure dressing applied. Administered Medications: 17:55 Drug: Tessalon Perle (benzonatate) 200 mg Route: PO; ll1 18:34 Follow up: Response: No adverse reaction ll1 17:55 Drug: SOLU-Medrol (methylPrednisoLONE) 125 mg Route: IVP; Site: right antecubital; ll1 18:34 Follow up: Response: No adverse reaction ll1 18:25 Drug: REGEN-COV Dose Pack 120 mg/mL-120 mg/mL (EUA) 260 ml Route: IV; Rate: calculated ll1 rate; Site: right antecubital; 19:35 Follow up: IV Status: Completed infusion; IV Intake: 250ml ch4 Intake: 19:35 IV: 250ml; Total: 250ml. ch4 Outcome: 20:27 Discharge ordered by . kavita 21:05 Discharged to home ambulatory. bb 21:05 Condition: stable 21:05 Discharge instructions given to patient, Instructed on discharge instructions, follow up and referral plans. medication usage, Demonstrated understanding of instructions, follow-up care, medications, Prescriptions given X 1. 21:06 Patient left the ED. bb Signatures: Dispatcher [employer] EDMS Kiana Guevara RN RN bb Martinez, Eric em1 Jazmin Santana RN RN ss Page, Corey, PA PA cp Lewis, Charde cl3 Marcus Ruby RN RN ll1 Caitlin Natarajan RN RN ch4 Edison Smalls Corrections: (The following items were deleted from the chart) 13:41 13:38 Immunization history: Client reports receiving the 2nd dose of the Covid vaccine, ss ss
--- NOTE | 2021-06-23 20:27 | EDPHYS ---
Physician Documentation [facility] Name: Beryl Shah Age: 71 yrs Sex: Female : 1950 Arrival Date: 06/23/2021 Time: 13:28 Bed 13 Private MD: ZOË Physician Jose Desai HPI: 06/23 17:00 This 71 yrs old Female presents to ER via Ambulatory with complaints of cp Shortness Of Breath, Covid+. Historical: - Allergies: 13:41 Codeine; ss 13:41 PENICILLINS; ss 13:41 steroids; ss - PMHx: 13:41 Gastric Reflux; HERPES; ss - Immunization history:: Client reports receiving the Gage \T\ Gage single-dose vaccine. - Social history:: Smoking status: Patient denies any tobacco usage or history of. ROS: 17:05 Constitutional: Negative for body aches, chills, fever, poor PO intake. cp 17:05 Eyes: Negative for injury, pain, redness, and discharge. cp 17:05 ENT: Negative for ear pain, sore throat, difficulty swallowing, difficulty handling secretions. 17:05 Cardiovascular: Negative for chest pain, edema, palpitations. 17:05 Respiratory: Positive for cough, shortness of breath, on exertion. Negative for wheezing. 17:05 Abdomen/GI: Negative for abdominal pain, nausea, vomiting, and diarrhea. 17:05 Neuro: Negative for altered mental status, dizziness, headache, syncope, weakness. 17:05 All other systems are negative. Exam: 17:15 Constitutional: The patient appears in no acute distress, alert, awake, cp non-diaphoretic, non-toxic, well developed, well nourished, obese. 17:15 Head/Face: Normocephalic, atraumatic. cp 17:15 Eyes: Periorbital structures: appear normal, Conjunctiva: normal, no exudate, no injection, Sclera: no appreciated abnormality, Lids and lashes: appear normal, bilaterally. 17:15 ENT: External ear(s): are unremarkable, Nose: is normal, Mouth: Lips: moist, Oral mucosa: moist, Posterior pharynx: Airway: no evidence of obstruction, patent. 17:15 Neck: ROM/movement: is normal, is supple, without pain, no range of motions limitations. 17:15 Chest/axilla: Inspection: normal, Palpation: is normal, no crepitus, no tenderness. 17:15 Cardiovascular: Rate: normal, Rhythm: regular, Edema: is not appreciated, JVD: is not appreciated. 17:15 Respiratory: the patient does not display signs of respiratory distress, Respirations: normal, no use of accessory muscles, no retractions, labored breathing, is not present, Breath sounds: bronchial sounds, that are mild, are heard diffusely, decreased breath sounds, are not appreciated, stridor, is not appreciated, wheezing: is not appreciated. 17:15 Abdomen/GI: Inspection: abdomen appears normal, Palpation: abdomen is soft and non-tender, in all quadrants. 17:15 Back: pain, is absent, ROM is normal. 17:15 Skin: no rash present. 17:15 Neuro: Orientation: to person, place \T\ time. Mentation: is normal, Motor: moves all fours, strength is normal, Sensation: is normal, Gait: is steady, at a normal pace, without difficulty. 17:50 ECG was reviewed by the Attending Physician. Vital Signs: 13:38 BP 135 / 100; Pulse 98; Resp 24; Temp 98.1(TE); Pulse Ox 96% ; Weight 101.15 kg; Height ss 5 ft. 1 in. (154.94 cm); 18:35 BP 109 / 76; Pulse 99; Resp 24; Pulse Ox 99% on R/A; ll1 19:48 BP 141 / 74; Pulse 79; Resp 18; Temp 98.4; Pulse Ox 100% ; Pain 0/10; wg 21:05 BP 149 / 82; Pulse 76; Resp 20 S; Temp 98.2(O); Pulse Ox 97% on R/A; bb 13:38 Body Mass Index 42.14 (101.15 kg, 154.94 cm) MDM: 16:51 Patient medically screened. [facility] 20:26 Data reviewed: vital signs, nurses notes, lab test result(s), EKG, radiologic studies, cp CT scan, plain films, I have discussed the patient's presentation/case with the attending Emergency Department Physician; and as a result, I will discharge patient. 06/23 17:14 Order name: Basic Metabolic Panel; Complete Time: 20:24 cp 06/23 20:24 Interpretation: Normal except: GFR 75. cp / 17:14 Order name: CBC with Diff; Complete Time: 18:55 cp 06/23 18:55 Interpretation: Normal except: WBC 4.20; MN% 12.8. cp / 17:14 Order name: LFT's; Complete Time: 20:24 cp / 20:24 Interpretation: Normal except: GLOB 3.6; A/G 1.0. cp / 17:14 Order name: Magnesium; Complete Time: 20:24 cp 06/23 17:14 Order name: NT PRO-BNP; Complete Time: 20:24 cp 06/23 20:24 Interpretation: Within normal limits: NT PRO-BNP 54. cp 06/23 17:14 Order name: PT-INR; Complete Time: 20:25 cp 06/23 20:25 Interpretation: Reviewed. cp 06/23 13:44 Order name: XRAY Chest (1 view); Complete Time: 17:14 ss 06/23 17:14 Order name: Troponin (emerg Dept Use Only); Complete Time: 20:24 cp 06/23 17:14 Order name: CRP; Complete Time: 20:24 cp 06/23 20:24 Interpretation: Abnormal: C-REACTIVE PROT 18.70. cp 06/23 17:14 Order name: Ferritin; Complete Time: 20:24 cp 06/23 20:25 Interpretation: Within normal limits: JEREMIE 151.3. cp 06/23 17:15 Order name: CT Chest For PE Angio; Complete Time: 18:55 cp 06/23 18:55 Interpretation: Report reviewed. cp 06/23 20:28 Order name: INCENTIVE SPIROMETRY cp 06/23 17:14 Order name: EKG; Complete Time: 17:15 cp 06/23 17:14 Order name: Cardiac monitoring; Complete Time: 17:55 cp 06/23 17:14 Order name: EKG - Nurse/Tech; Complete Time: 17:52 cp 06/23 17:14 Order name: IV Saline Lock; Complete Time: 17:23 cp 06/23 17:14 Order name: Labs collected and sent; Complete Time: 17:23 cp 06/23 17:14 Order name: O2 Per Protocol; Complete Time: 17:23 cp 06/23 17:14 Order name: O2 Sat Monitoring; Complete Time: 17:23 cp 06/23 18:06 Order name: Labs - recollect needed: recollect all tubes; Complete Time: 18:34 bd 06/23 18:32 Order name: Labs - recollect needed: recollect again. inside lab will come to collect. bd EC:50 Rate is 72 beats/min. Rhythm is regular. [place] interval is normal. QRS interval is normal. cp QT interval is normal. T waves are Inverted in lead aVR. Interpreted by me. Reviewed by me. Administered Medications: 17:55 Drug: Tessalon Perle (benzonatate) 200 mg Route: PO; ll1 18:34 Follow up: Response: No adverse reaction ll1 17:55 Drug: SOLU-Medrol (methylPrednisoLONE) 125 mg Route: IVP; Site: right antecubital; ll1 18:34 Follow up: Response: No adverse reaction ll1 18:25 Drug: REGEN-COV Dose Pack 120 mg/mL-120 mg/mL (EUA) 260 ml Route: IV; Rate: calculated ll1 rate; Site: right antecubital; 19:35 Follow up: IV Status: Completed infusion; IV Intake: 250ml ch4 Disposition: 06/24 14:50 Co-signature as Attending Physician, Jose Desai MD I agree with the assessment and holli plan of care. PA/DIPLOMA MEDICAL ASSISTANT's history reviewed, patient interviewed, and examined. Disposition Summary: 06/23/21 20:27 Discharge Ordered Location: Home cp Problem: new cp Symptoms: have improved cp Condition: Stable cp Diagnosis - Other viral pneumonia cp - SARS-associated coronavirus as the cause of diseases classified elsewhere cp Followup: cp - With: Private Physician - When: 2 - 3 days - Reason: Recheck today's complaints Discharge Instructions: - Discharge Summary Sheet cp - How to Use an Incentive Spirometer cp - COVID-19 cp - Things to Know about the COVID-19 Pandemic - [facility] cp - 10 Things You Can Do to Manage Your COVID-19 Symptoms at Home - [facility] cp - Form - Incentive Spirometer Record cp - Frequently Asked Questions About COVID-19 Vaccination - [facility] cp - COVID-19: Quarantine vs. Isolation - [facility] cp - Prevent the Spread of COVID-19 if You Are Sick - [facility] cp Forms: - Medication Reconciliation Form cp - Thank You Letter cp - Antibiotic Education cp - Prescription Opioid Use cp Prescriptions: - albuterol sulfate 90 mcg/actuation Inhalation HFA aerosol inhaler - inhale 2 puff by INHALATION route every 4-6 hours; 1 Inhaler; Refills: 0, cp Product Selection Permitted Signatures: Dispatcher [employer] Sharon Rowley Corey, MD MD cha Smirch, Shelby, RN RN ss Jose Moyer PA PA cp Lewis, Lynsay, RN RN ll1 Caitlin Natarajan RN ch4 Corrections: (The following items were deleted from the chart) 06/23 13:41 13:38 Immunization history: Client reports receiving the 2nd dose of the Covid vaccine, ss
[2021-06-23 21:20] VITALS: BP 149/82; TEMP 98.2; O2SAT 97
== END 2021-06-23 21:06 | disposition home or self-care (01) ==
LOC: ER 13:22
DX: U07.1 COVID-19 (principal); J12.82 Pneumonia due to coronavirus disease 2019; Z88.0 Allergy status to penicillin; Z88.5 Allergy status to narcotic agent; Z88.8 Allergy status to other drugs, medicaments and biological substances
CPT/HCPCS: 96365; 93005; 85025; 80048; 36415; 83735; 85610; 82565; 80076; 84484; 82728; 83880; 86140; 71275; 71045; 96375; 99285; Q9967; J7050; J2930

== ENCOUNTER 2021-12-14 13:57 | Emergency (ER) | payer OTHER ==
--- OUTSIDE RECORDS SUMMARY | 2021-12-14 14:00 | XMS REPORT | Continuity of Care Document ---
:1950 Author Organization [facility] t Address 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 Attending Clinician Payers Payer Name Policy Type Policy Number Effective Date Expiration Date S ource Problems Condition Condition Condition Status Onset Resolution Last Treating Co mments Source Name Details Category Date Date Treatment Clinician Date Pharyngoes Pharyngoes Disease Active [facility] -12 [facility] dysphagia dysphagia 00:00: of 00 Medicin e Hoarse Hoarse Disease Active [facility] 4-12 College 00:00: of 00 Medicin e Muscle Muscle Disease Active [facility] tension tension -12 [place] dysphonia dysphonia 00:00: of 00 Medicin e Throat Throat Disease Active [facility] pain pain 412 [place] 00:00: of 00 Medicin e GERD GERD Disease Active 2016-10 Methodi (gastroeso [...] Disease Active [facility]27 [facility] thoracic thoracic 00:00: Hospit a wall wall 00 l Allergies, Adverse Reactions, Alerts Allergy Allergy Status Severity Reaction(s) Onset Inactive Treating Comm ents Source Name Type Date Date Clinician Codeine Propensi Active Rash [facility] ty to 02-08 [place] adverse 00:00: of reaction 00 Medicin s to e drug Epinephr Propensi Active [facility] ine ty to 02-08 [place] adverse 00:00: of reaction 00 Medicin s to e drug Other Propensi Active Rash steroids [facility] ty to 02-08 [place] adverse 00:00: of reaction 00 Medicin s e Penicill Propensi Active Rash [facility] ins ty to 02-08 [place] adverse 00:00: of reaction 00 Medicin s to e drug Codeine Propensi Active Itching [facility] i ty to 04-27 adverse 00:00: Hospita reaction 00 l s to drug CODEINE DRUG Active [facility] 04-27 [facility] of 00[facility]: [place] [facility] PENICILL Drug Active Rash [facility] INS Class 04-27 ity of 00:00: [place] 00 [facility] Other Propensi Active Rash steroid [facility] ty to 04-27 adverse 00:00: Hospita reaction 00 l s Penicill Propensi Active Rash Method i ins ty to 04-27 adverse 00:00: Hospita reaction 00 l s to drug Family History Family Member Diagnosis Comments Start Date Stop Date Source Natural mother Heart disease [facility] Natural mother Diabetes [facility] Natural father Cancer [facility] Social History Social Habit Start Date Stop Date Quantity Comments Source Alcohol intake [facility] lege of [facility] Sex Assigned At [facility] Co llege of Medicine Tobacco use and 2017-10-26 2017-10-26 Never used [facility]00 Hospital Alcohol Comment 2017-10-25 2017-10-25 Drinks wine Methodis t 00:00:00 00:00:00 occasionally Hospital Smoking Status Start Date Stop Date Source Never smoker [facility] f [facility] Medications Ordered Filled Start Stop Current Ordering Indication Dosage Frequency Signature Comments Components Source Medication Medication Date Date Medication? Clinician (SIG) Name Name LATANOPROST 2019-0 Yes Apply to [facility] 4-12 eye daily. [place] 20:06: of 16 Medicin e VALACYCLOVI 2018-0 Yes Take by [facility] OR 4-12 mouth [place] 20:06: daily. of 16 Medicin e Multiple 2018-0 Yes Take by [facility] 4-12 mouth. Colleg e nerals 20:06: of ([facility] 16 Medicin AREDS 2 OR) e Cyanocobala 2018-0 Yes Take by [facility] min (B-12 4-12 mouth. College OR) 20:06: of 16 Medicin e MAGNESIUM 2018-0 Yes Take by [facility] OR 4-12 mouth. College 20:06: of 16 Medicin e Psyllium 2018-0 Yes Take by [facility] (METAMUCIL 4-12 mouth. College OR) 20:06: of 16 Medicin e Flaxseed, 2019-0 Yes Take by [facility] Linseed, 4-12 mouth. College (FLAXSEED 20:06: of OIL OR) 16 Medicin e Probiotic 2018-0 Yes Take by [facility] Product 4-12 mouth. [place] (PROBIOTIC 20:06: of OR) 16 Medicin e LATANOPROST 2019-0 Yes Apply to [facility] 4-12 eye daily. [place] 20:06: of 16 Medicin e VALACYCLOVI 2018-0 Yes Take by [facility]CL OR 4-12 mouth [place] 20:06: daily. of 16 Medicin e Multiple 2018-0 Yes Take by [facility] 4-12 mouth. Colleg e nerals 20:06: of ([facility] 16 Medicin AREDS 2 OR) e Cyanocobala 2018-0 Yes Take by [facility] min (B-12 4-12 mouth. College OR) 20:06: of 16 Medicin e MAGNESIUM 2018-0 Yes Take by [facility] OR 4-12 mouth. College 20:06: of 16 Medicin e Psyllium 2018-0 Yes Take by [facility] (METAMUCIL 4-12 mouth. College OR) 20:06: of 16 Medicin e Flaxseed, 2019-0 Yes Take by [facility] Linseed, 4-12 mouth. [place] (FLAXSEED 20:06: of OIL OR) 16 Medicin e Probiotic 2019-0 Yes Take by [facility] Product 4-12 mouth. [place] (PROBIOTIC 20:06: of OR) 16 Medicin e LATANOPROST 2019-0 Yes Apply to [facility] 4-12 eye daily. [place] 20:06: of 16 Medicin e VALACYCLOVI 2019-0 Yes Take by [facility] HCL OR 4-12 mouth [place] 20:06: daily. of 16 Medicin e Multiple 2019-0 Yes Take by [facility] 4-12 mouth. Colleg e nerals 20:06: of ([facility] 16 Medicin AREDS 2 OR) e Cyanocobala 2019-0 Yes Take by [facility] min (B-12 4-12 mouth. [place] OR) 20:06: of 16 Medicin e MAGNESIUM 2019-0 Yes Take by [facility] OR 4-12 mouth. [place] 20:06: of 16 Medicin e Psyllium 2019-0 Yes Take by [facility] (METAMUCIL 4-12 mouth. [place] OR) 20:06: of 16 Medicin e Flaxseed, 2019-0 Yes Take by [facility] Linseed, 4-12 mouth. [place] (FLAXSEED 20:06: of OIL OR) 16 Medicin e Probiotic 2018-0 Yes Take by [facility] Product 4-12 mouth. [place] (PROBIOTIC 20:06: of OR) 16 Medicin e dorzolamide 2019-[address] [facility] (TRUSOPT) 2 3-01 into both Col lege % 00:00: eyes two of ophthalmic 00 times Medicin solution daily. e dorzolamide 2018-[address] [facility] (TRUSOPT) 2 3-01 into both Col lege % 00:00: eyes two of ophthalmic 00 times Medicin solution daily. e dorzolamide 2018-[address] [facility] (TRUSOPT) 2 3-01 into both Col lege % 00:00: eyes two of ophthalmic 00 times Medicin solution daily. e RESTASIS 2019- Yes INSTILL 1 [facility] 0.05 % 1-16 DROP INTO [place] ophthalmic 00:00: BOTH EYES of emulsion 00 TWICE A Medicin DAY e RESTASIS 2019-0 Yes INSTILL 1 [facility] 0.05 % 1-16 DROP INTO College ophthalmic 00:00: BOTH EYES of emulsion 00 TWICE A Medicin DAY e RESTASIS Yes INSTILL 1 [facility] 0.05 % 1-16 DROP INTO College ophthalmic 00:00: BOTH EYES of emulsion 00 TWICE A Medicin DAY e cycloSPORIN 2016-10 Yes Apply to Me thodi [...] es - Test 00:00:00 malignant neoplasm of [facility] breast (procedure) [code = 825964438] Future Scheduled [address] [facility] es - Test 00:00:00 malignant neoplasm of [facility] colon (procedure) [code = 784480530] Future Scheduled COLON CANCER [facility] ege of Test SCREENING: COLONOSCOPY Medic ine [code = COLON CANCER SCREENING: COLONOSCOPY] Future Scheduled MAMMOGRAM ANNUAL [code [facility] College of Test = MAMMOGRAM ANNUAL] Medicine Future Scheduled MEDICARE AWV [code = [employer] of Test MEDICARE AWV] Medicine Future Scheduled TETANUS SHOT (ADULT) [employer] of Test [code = TETANUS SHOT Medicin e (ADULT)] Future Scheduled BMI FOLLOW UP PLAN [facility] r College of Test [code = BMI FOLLOW UP Medici ne PLAN] Future Scheduled HEPATITIS C SCREENING [facility] Test [code = HEPATITIS C Medicine SCREENING] Future Scheduled FALL SCREEN [code = [facility] of Test FALL SCREEN] Medicine Future Scheduled PNEUMOVAX >=65 [facility] llege of Test (PPSV23) [code = Medicine PNEUMOVAX >=65 (PPSV23)] Future Scheduled FLU VACCINE > 6 MONTHS [facility] College of Test [code = FLU VACCINE > Medici ne 6 MONTHS] Future Scheduled COVID-19 VACCINE (1) [facility] Test [code = COVID-19 VACCINE (1)] Future Scheduled BREAST CANCER [facility] Test SCREENING [code = BREAST CANCER SCREENING] Future Scheduled COLONOSCOPY SCREENING [facility] Test [code = COLONOSCOPY SCREENING] Future Scheduled SHINGLES VACCINES (#1) [facility] Test [code = SHINGLES VACCINES (#1)] Future Scheduled 65+ [facility]UMOCOCCAL [facility] Test VACCINE (1 of 1 - PPSV23) [code = 65+ PNEUMOCOCCAL VACCINE (1 of 1 - PPSV23)] Future Scheduled INFLUENZA [facility]ACCINE [facility] Test [code = INFLUENZA VACCINE] Future Scheduled COLON CANCER [facility] ege of Test SCREENING: COLONOSCOPY Medic ine [code = COLON CANCER SCREENING: COLONOSCOPY] Future Scheduled MAMMOGRAM ANNUAL [code [facility] College of Test = MAMMOGRAM ANNUAL] Medicine Future Scheduled MEDICARE AWV [code = [employer] of Test MEDICARE AWV] Medicine Future Scheduled TETANUS SHOT (ADULT) [employer] of Test [code = TETANUS SHOT Medicin e (ADULT)] Future Scheduled BMI FOLLOW UP PLAN [facility] r College of Test [code = BMI FOLLOW UP Medici ne PLAN] Future Scheduled HEPATITIS C SCREENING [facility] Test [code = HEPATITIS C Medicine SCREENING] Future Scheduled FALL SCREEN [code = [facility] Test FALL SCREEN] Medicine Future Scheduled PNEUMOVAX >=65 [facility] Co llege of Test (PPSV23) [code = Medicine PNEUMOVAX >=65 (PPSV23)] Future Scheduled FLU VACCINE > 6 MONTHS [facility] of Test [code = FLU VACCINE > Medici ne 6 MONTHS] Future Scheduled COLON CANCER [facility] J[facility]ani ege of Test SCREENING: COLONOSCOPY Medic ine [code = COLON CANCER SCREENING: COLONOSCOPY] Future Scheduled MAMMOGRAM ANNUAL [code [facility] of Test = MAMMOGRAM ANNUAL] Medicine Future Scheduled MEDICARE AWV [code = [employer] of Test MEDICARE AWV] Medicine Future Scheduled TETANUS SHOT (ADULT) [employer] [place] of Test [code = TETANUS SHOT Medicin e (ADULT)] Future Scheduled BMI FOLLOW UP PLAN [facility] r [place] of Test [code = BMI FOLLOW UP Medici ne PLAN] Future Scheduled HEPATITIS C SCREENING [facility] of Test [code = HEPATITIS C Medicine SCREENING] Future Scheduled FALL SCREEN [code = [facility] Test FALL SCREEN] Medicine Future Scheduled PNEUMOVAX >=65 [facility] Co llege of Test (PPSV23) [code = Medicine PNEUMOVAX >=65 (PPSV23)] Future Scheduled FLU VACCINE > 6 MONTHS [facility] of Test [code = FLU VACCINE > Medici ne 6 MONTHS] Encounters Start End Encounter Admission Attending Care Care Encounter Source Date/Time Date/Time Type Type Clinicians Facility Department ID 2020-12-25 2020-12-25 Outpatient [facility] [id number] Univers 09:40:00 09:40:00 [id number] [facility] 2019-08-05 2019-08-05 Office SHAYAN Hassan [id number] [place] [address] 12:51:09 13:32:29 Visit Yasmin AMBULATOR [id number] College Y [id number] of [id number] [facility] 800 e 2019-08-05 2019-08-05 Office SHAYAN Hassan [id number] 12:51:09 13:32:29 Visit Yasmin AMBULATOR [id number] Y [id number] [id number] 800 2019-07-02 2019-07-02 Office SHAYAN Hassan [id number] [facility] 10:30:43 11:41:19 Visit Yasmin AMBULATOR [id number] College Y [id number] of [id number] [facility] 800 e 2019-07-02 2019-07-02 Office SHAYAN Hassan [id number] 10:30:43 11:41:19 Visit Yasmin AMBULATOR [id number] Y [id number] [id number] 800 2019-06-17 2019-06-17 Office SHAYAN Hassan [id number] 69 [facility] 12:47:15 13:25:21 Visit Yasmin AMBULATOR [id number] College Y [id number] of [id number] [facility] 800 e 2019-06-17 2019-06-17 Office SHAYAN Hassan [id number] 12:47:15 13:25:21 Visit Yasmin AMBULATOR [id number] Y [id number] [id number] Results Test Description Test Time Test Comments Results Result [facility] e Comments [place], [place], SWALLOW 2019-03-13 Reason for FINAL REPORT PATIENT FUNCTION, WITH 11:13:00 Exam:->r07.0 ID: [id number] CINE OR VIDEO Modified barium swallow exam [...] MDReport Verified Date/Time: 03/13/2019 11:13:50 Reading Location: [address] Radiology Reading Room
[2021-12-14] MEDS ORDERED: LORazepam 2 MG/ML VIAL ONE (14:16)
[2021-12-14 14:36] LABS: Absolute Lymphocytes (CBC) 2.2 K/uL (0.7-4.9); Hematocrit 41.7 % (36.0-45.0); Lymphocytes % 34.9 % (15.3-44.8); MPV 8.9 fL (7.6-11.3); RBC Red Blood Cell Count 4.23 M/uL (3.86-4.86)
--- NOTE | 2021-12-14 14:53 | RAD REPORT ---
EXAM DESCRIPTION: Miesha Single View12/14/2021 2:41 pm CLINICAL HISTORY: Chest pain COMPARISON: 2020 FINDINGS: The lungs appear clear of acute infiltrate. The heart is normal size IMPRESSION: No acute abnormalities displayed
[2021-12-14 14:54] LABS: Troponin High Sensitivity 6.9 pg/mL (<58.9)
[2021-12-14] MEDS ORDERED: MEPERIDINE HCL 25 MG/ML SYR ONE (15:38)
--- NOTE | 2021-12-14 16:36 | RAD REPORT ---
EXAM DESCRIPTION: CT - Angio Aorta For Dissection - 12/14/2021 4:17 pm CLINICAL HISTORY: . Chest and abd pain COMPARISON: 2019 TECHNIQUE: Computed tomography angiography of the chest, abdomen pelvis were obtained. 100 cc Isovue 370 was administered intravenously. Coronal and sagittal reconstruction were performed. MIP 3D reconstruction was performed All CT scans are performed using dose optimization technique as appropriate and may include automated exposure control or mA/KV adjustment according to patient size. FINDINGS: An aortic dissection is not seen. An aortic aneurysm is not displayed. The celiac, SMA and AMANDO are patent . A lung consolidation is not present. A pericardial effusion is not seen. A pleural effusion is not no stefani. The liver,spleen, pancreas, adrenals and kidneys demonstrate no significant abnormality. There no evidence diverticulitis. A 6 centimeter soft tissue structure within the cecum Small umbilical hernia IMPRESSION: Negative for an aortic dissection. 6 centimeter soft tissue structure within the cecum probably representing unusual appearance stool. A mass can also have this appearance and follow up is recommended.
--- NOTE | 2021-12-14 18:03 | EDPHYS ---
Physician Documentation [facility] Name: Beryl Shah Age: 71 yrs Sex: Female : 1950 Arrival Date: 12/14/2021 Time: 13:57 Bed 7 Private MD: Ama Concepcion C ED Physician Rich Hyman HPI: 12/14 14:58 This 71 yrs old Female presents to ER via Wheelchair with complaints of Chest Pain, rn shortness of breath. 14:58 The patient or guardian reports chest pain that is located primarily in the chest rn diffusely. Onset: this morning. The pain does not radiate. Associated signs and symptoms: Pertinent positives: shortness of breath, Pertinent negatives: abdominal pain, cough, diaphoresis, syncope, vomiting. The chest pain is described as sharp. Duration: The patient or guardian reports multiple episodes, that are intermittent. Modifying factors: The symptoms are alleviated by nothing. the symptoms are aggravated by emotionally stressful situations. Severity of pain: At its worst the pain was moderate in the emergency department the pain is unchanged. The patient has experienced similar episodes in the past. The patient has not recently seen a physician. Patient reports chest pain and anxiety that began earlier this morning. States has been happening over the last few days and attributes it to emotional stress. States that her with dementia has been difficult to control over the last few days and has also had multiple family members in the last couple weeks. Reports symptoms identical to previous anxiety attacks and son in the room confirms that this is usually how she gets with bad anxiety. Denies any fall or trauma. Denies feeling ill. Reports chronic back pain but no new symptoms. No focal neurological deficits.. Historical: - Allergies: 14:19 Codeine; ap3 14:19 PENICILLINS; ap3 14:19 steroids; ap3 14:19 Adhesives; ap3 - Home Meds: 14:19 Valtrex 500 mg Oral tab [Active]; methocarbamol 500 mg Oral tab for muscle spasm ap3 [Active]; - PMHx: 14:19 Osteoarthritis; TIA; Gastric Reflux; HERPES; ap3 - PSHx: 14:19 partial hysterectomy; Appendectomy; Cholecystectomy; ap3 - Immunization history:: Client reports receiving the 2nd dose of the Covid vaccine, Flu vaccine is up to date. - Social history:: Smoking status: Patient denies any tobacco usage or history of. - Family history:: not pertinent. - Hospitalizations: : No recent hospitalization is reported. ROS: 14:58 Constitutional: Negative for fever, chills, and weight loss, Eyes: Negative for injury, rn pain, redness, and discharge, Neck: Negative for injury, pain, and swelling, Cardiovascular: Negative for palpitations, and edema, Respiratory: Negative for cough, wheezing, and pleuritic chest pain, Abdomen/GI: Negative for abdominal pain, nausea, vomiting, diarrhea, and constipation, Back: Negative for injury MS/Extremity: Negative for injury and deformity, Skin: Negative for injury, rash, and discoloration, Neuro: Negative for headache, weakness, numbness, tingling, and seizure. Exam: 14:58 Constitutional: This is a well developed, well nourished patient who is awake, alert, rn hyperventilating Head/Face: Normocephalic, atraumatic. Eyes: Periorbital areas with no swelling, redness, or edema. Cardiovascular: Regular rate and rhythm. No pulse deficits. Respiratory: Moderate tachypnea, no retractions, able to slow breathing Abdomen/GI: Soft, non-tender Skin: Warm, dry MS/ Extremity: Pulses equal, no cyanosis. Neurovascular intact. Full, normal range of motion. Equal circumference. Neuro: Awake and alert, GCS 15 Vital Signs: 14:17 BP 140 / 89; Pulse 112; Resp 26; Temp 98.9(O); Pulse Ox 100% ; Weight 102.06 kg; Height jl7 5 ft. (152.40 cm); 14:32 BP 128 / 83; Pulse 76; Resp 28; Pulse Ox 100% on R/A; jl7 15:25 BP 129 / 57; Pulse 77; Resp 24; Pulse Ox 99% ; jl7 16:26 BP 147 / 77; Pulse 73; Resp 29 S; Pulse Ox 100% on R/A; jl7 17:38 BP 122 / 77; Pulse 79; Resp 16; Pulse Ox 95% ; jl7 14:17 Body Mass Index 43.94 (102.06 kg, 152.40 cm) jl7 MDM: 14:11 Patient medically screened. rn 18:01 Differential diagnosis: acute myocardial infarction, acute pericarditis, anxiety, rn pleurisy, thoracic aortic disection. Data reviewed: vital signs, nurses notes, lab test result(s), EKG, radiologic studies, CT scan, plain films, and as a result, I will discharge patient. Counseling: I had a detailed discussion with the patient and/or guardian regarding: the historical points, exam findings, and any diagnostic results supporting the discharge/admit diagnosis, lab results, radiology results, the need for outpatient follow up, to return to the emergency department if symptoms worsen or persist or if there are any questions or concerns that arise at home. Response to treatment: the patient's symptoms have markedly improved after treatment, the patient's condition has returned to base line, the patient is now symptom free, and as a result, I will discharge patient. Special discussion: I discussed with the patient/guardian in detail that at this point there is no indication for admission to the hospital. It is understood, however, that if the symptoms persist or worsen the patient needs to return immediately for re-evaluation. ED course: Pt back to baseline, feels much better, will dc home. Consulted with Dr. Concepcion and will see patient in clinic tomorrow to discuss medication. . 12/14 14:11 Order name: Basic Metabolic Panel rn 12/14 14:11 Order name: CBC with Diff; Complete Time: 14: rn 12/14 14:11 Order name: NT PRO-BNP; Complete Time: 14: rn 12/14 14:11 Order name: Troponin HS; Complete Time: 14: rn 12/14 14:11 Order name: XRAY Chest (1 view); Complete Time: 14: rn 12/14 14:12 Order name: Basic Metabolic Panel; Complete Time: 14:57 EDMS 12/14 14:11 Order name: EKG; Complete Time: 14: rn 12/14 14:11 Order name: Cardiac monitoring; Complete Time: 14: rn 12/14 14:11 Order name: EKG - Nurse/Tech; Complete Time: 14: rn 12/14 14:11 Order name: IV Saline Lock; Complete Time: 14: rn 12/14 15:28 Order name: CT Aorta for Dissection; Complete Time: 16:44 rn 12/14 14:11 Order name: Labs collected and sent; Complete Time: 14: rn 12/14 14:11 Order name: O2 Per Protocol; Complete Time: 14:12/14 14:11 Order name: O2 Sat Monitoring; Complete Time: 14:26 rn Administered Medications: 14:23 Drug: Ativan (LORazepam) 0.5 mg Route: IVP; Site: right antecubital; jl7 14:50 Follow up: Response: No adverse reaction; Anxiety decreased jl7 15:50 Drug: Demerol (meperidine) 12.5 mg Route: IVP; Site: right antecubital; jl7 17:20 Drug: Ativan (LORazepam) 0.5 mg Route: IVP; Site: right antecubital; jl7 Disposition Summary: 12/14/21 18:02 Discharge Ordered Location: Home rn Problem: new rn Symptoms: have improved rn Condition: Stable rn Diagnosis - Anxiety disorder, unspecified rn - Hyperventilation rn Followup: rn - With: Ama Concepcion MD - When: Tomorrow - Reason: Recheck today's complaints, Re-evaluation by your physician Discharge Instructions: - Discharge Summary Sheet rn - Panic Attack rn - Hyperventilation rn - Generalized Anxiety Disorder, Adult rn Forms: - Medication Reconciliation Form rn - Thank You Letter rn - Antibiotic psychology intern - Prescription Opioid Use rn Signatures: Dispatcher [employer] EDMS Rich Hyman MD MD rn Leal, Jahala RN RN jl7 Krystin Marie RN RN ap3 Corrections: (The following items were deleted from the chart) 15:02 14:58 Constitutional: Negative for fever, chills, and weight loss, Eyes: Negative for rn injury, pain, redness, and discharge, Neck: Negative for injury, pain, and swelling, Cardiovascular: Negative for palpitations, and edema, Respiratory: Negative for cough, wheezing, and pleuritic chest pain, Abdomen/GI: Negative for abdominal pain, nausea, vomiting, diarrhea, and constipation, Back: Negative for injury and pain, MS/Extremity: Negative for injury and deformity, Skin: Negative for injury, rash, and discoloration, Neuro: Negative for headache, weakness, numbness, tingling, and seizure, rn
--- NOTE | 2021-12-14 18:03 | ER ---
Nurse's Notes [facility] Name: Beryl Shah Age: 71 yrs Sex: Female : 1950 Arrival Date: 12/14/2021 Time: 13:57 Bed 7 Private MD: Ama Concepcion C Diagnosis: Anxiety disorder, unspecified;Hyperventilation Presentation: 12/14 14:17 Chief complaint: Patient states: she started having chest pain this morning, phoned her ap3 PCP, and was informed to come right to the ER. 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 Coronavirus screen: At this time, the client does not indicate any symptoms associated with coronavirus-19. Ebola Screen: No symptoms or risks identified at this time. Initial Sepsis Screen: Does the patient meet any 2 criteria? RR > 20 per min. HR > 90 bpm. Yes Does the patient have a suspected source of infection? No. Patient's initial sepsis screen is negative. Risk Assessment: Do you want to hurt yourself or someone else? Patient reports no desire to harm self or others. Onset of symptoms was December 14, 2021. 14:17 Method Of Arrival: Wheelchair ap3 14:17 Acuity: ANDREA 2 ap3 Triage Assessment: 14:24 General: Appears distressed, Behavior is anxious. Pain: Complains of pain in ap3 mid-sternal area Pain began 4 hours ago. Neuro: Level of Consciousness is awake, alert, Oriented to person, place, time, situation. Cardiovascular: Reports chest pain, shortness of breath, Patient's skin is warm and dry. Respiratory: Airway is patent Respiratory effort is even, labored, Respiratory pattern is hyperventilation. Historical: - Allergies: 14:19 Codeine; ap3 14:19 PENICILLINS; ap3 14:19 steroids; ap3 14:19 Adhesives; ap3 - Home Meds: 14:19 Valtrex 500 mg Oral tab [Active]; methocarbamol 500 mg Oral tab for muscle spasm ap3 [Active]; - PMHx: 14:19 Osteoarthritis; TIA; Gastric Reflux; HERPES; ap3 - PSHx: 14:19 partial hysterectomy; Appendectomy; Cholecystectomy; ap3 - Immunization history:: Client reports receiving the 2nd dose of the Covid vaccine, Flu vaccine is up to date. - Social history:: Smoking status: Patient denies any tobacco usage or history of. - Family history:: not pertinent. - Hospitalizations: : No recent hospitalization is reported. Screenin:25 Abuse screen: Denies threats or abuse. Nutritional screening: No deficits noted. ap3 Tuberculosis screening: No symptoms or risk factors identified. Fall Risk Secondary diagnosis (15 points) impaired mobility, IV access (20 points). Ambulatory Aid- None/Bed Rest/Nurse Assist (0 pts). Gait- Weak (10 pts.). Mental Status- Oriented to own ability (0 pts). Total Bob Fall Scale indicates High Risk Score (45 or more points). Fall prevention measures have been instituted. Side Rails Up X 2 Placed Close to Nursing Station Frequent Obs/Assessments Occuring Family Present and informed to notify staff if the need to leave the bedside As available patient and family educated on Fall Prevention Program and Strategies. Assessment: 14:15 General: Appears distressed, uncomfortable, Behavior is cooperative, anxious, restless. jl7 Pain: Complains of pain in mid-sternal area Pain radiates to back Pain currently is 10 out of 10 on a pain scale. Quality of pain is described as pressure, Pain began 2-3 days ago. Is continuous. Neuro: Level of Consciousness is awake, alert, obeys commands, Oriented to person, place, time, situation. Cardiovascular: Reports chest pain, Patient's skin is warm and dry. Rhythm is regular. Respiratory: Airway is patent Respiratory effort is even, labored, with nasal flaring, Respiratory pattern is symmetrical, hyperventilation tachypnea. Derm: Skin is pink, warm \T\ dry. Vital Signs: 14:17 BP 140 / 89; Pulse 112; Resp 26; Temp 98.9(O); Pulse Ox 100% ; Weight 102.06 kg; Height jl7 5 ft. (152.40 cm); 14:32 BP 128 / 83; Pulse 76; Resp 28; Pulse Ox 100% on R/A; jl7 15:25 BP 129 / 57; Pulse 77; Resp 24; Pulse Ox 99% ; jl7 16:26 BP 147 / 77; Pulse 73; Resp 29 S; Pulse Ox 100% on R/A; jl7 17:38 BP 122 / 77; Pulse 79; Resp 16; Pulse Ox 95% ; jl7 14:17 Body Mass Index 43.94 (102.06 kg, 152.40 cm) jl7 ED Course: 13:57 Patient arrived in ED. mr 13:58 Ama Concepcion MD is Private Physician. mr 14:01 Deyanira Rahman, RN is Primary Nurse. jl7 14:11 Rich Hyman MD is Attending Physician. rn 14:15 Initial lab(s) drawn, by me, sent to lab. EKG done, by ED staff, reviewed by Rich Hyman MD. Inserted saline lock: 20 gauge in right antecubital area, using aseptic technique. Blood collected. 14:17 CBC with Diff Sent. ic1 14:17 NT PRO-BNP Sent. ic1 14:17 Troponin HS Sent. ic1 14:19 Triage completed. ap3 14:26 Patient maintains SpO2 saturation greater than 95% on room air. ap3 14:26 Arm band placed on right wrist. EKG completed in triage. Results shown to MD. ap3 14:26 Patient has correct armband on for positive identification. Placed in gown. Bed in low ap3 position. Call light in reach. Side rails up X2. Adult w/ patient. quality assurance monitor final on. Pulse ox on. NIBP on. Door closed. Noise minimized. 14:41 XRAY Chest (1 view) In Process Unspecified. EDMS 16:17 CT Aorta for Dissection In Process Unspecified. EDMS 18:01 Ama Concepcion MD is Referral Physician. rn 18:26 IV discontinued, intact, bleeding controlled, No redness/swelling at site. Pressure ic1 dressing applied. Administered Medications: 14:23 Drug: Ativan (LORazepam) 0.5 mg Route: IVP; Site: right antecubital; jl7 14:50 Follow up: Response: No adverse reaction; Anxiety decreased jl7 15:50 Drug: Demerol (meperidine) 12.5 mg Route: IVP; Site: right antecubital; jl7 17:20 Drug: Ativan (LORazepam) 0.5 mg Route: IVP; Site: right antecubital; jl7 Outcome: 18:02 Discharge ordered by MD. rn 18:25 Discharged to home with family. ic1 18:25 Condition: stable 18:25 Discharge instructions given to patient, family, Instructed on discharge instructions, follow up and referral plans. Demonstrated understanding of instructions, follow-up care. 18:26 Patient left the ED. ic1 Signatures: Dispatcher [employer] Ne BergeronRich MD MD rn Leal, Jahala, RN RN jl7 Krystin Marie RN RN ap3 Meaghan Castillo RN RN ic1 Corrections: (The following items were deleted from the chart) 14:32 14:17 BP 140 / 89; Pulse 112bpm; Resp 17bpm; Pulse Ox 100%; Temp 98.9F Oral; 102.06 kg; jl7 Height 5 ft.; BMI: 43.9; ap3 16:26 15:25 BP 129 / 57; Pulse 77bpm; Resp 18bpm; Pulse Ox 99%; ic1 jl7
--- NOTE | 2021-12-15 11:16 | EKG ---
Test Date: 2021-12-14 Test Time: 14:24:21 Blanchard Grinder Operator: JOSIAH MEASUREMENT RESULTS: Intervals: Rate: 84 NM: 122 QRSD: 62 QT: 358 QTc: 423 Nabb: P: NM: 122 QRS: -1 T: 5 INTERPRETIVE STATEMENTS: Normal sinus rhythm Anterior infarct, age undetermined Abnormal ECG Compared to ECG 06/23/2021 17:43:56 No significant changes Electronically Signed On 12-15-21 11:13:[address] JUDGE by Ricardo Norwood
== END 2021-12-14 18:26 | disposition home or self-care (01) ==
LOC: ER 13:57
DX: F41.9 Anxiety disorder, unspecified (principal); Z86.73 Personal history of transient ischemic attack (TIA), and cerebral infarction without residual deficits; Z88.0 Allergy status to penicillin; Z88.5 Allergy status to narcotic agent; Z88.8 Allergy status to other drugs, medicaments and biological substances; Z91.048 Other nonmedicinal substance allergy status
CPT/HCPCS: 93005; 85025; 80048; 36415; 84484; 83880; 71275; 74175; 71045; 96375; 96374; 99285; Q9967; J2175

== ENCOUNTER 2022-03-06 13:46 | Emergency (ER) | payer OTHER ==
--- OUTSIDE RECORDS SUMMARY | 2022-03-06 13:48 | XMS REPORT | Continuity of Care Document ---
:1950 Author Organization [facility] t Address [address] [place] [address] Care Team Providers Name Role Phone Pcp MD Primary Care Physician Unavailable Mo HAZEL Attending Clinician Payers Payer Name Policy Type Policy Number Effective Date Expiration Date S ource Problems Condition Condition Condition Status Onset Resolution Last Treating Co mments Source Name Details Category Date Date Treatment Clinician Date Pharyngoes Pharyngoes Disease Active [facility] 4-12 [facility] dysphagia dysphagia 00:00: of 00 Medicin e Hoarse Hoarse Disease Active [facility] 4-12 College 00:00: of 00 Medicin e Muscle Muscle Disease Active [facility] tension tension [address] [facility] dysphonia dysphonia 00:00: of 00 Medicin e Throat Throat Disease Active [facility] pain pain 412 [place] 00:00: of 00 Medicin e GERD GERD Disease Active 2016-10 [facility] (gastroeso (gastroeso 2-27 st phageal phageal [facility]00: Hosp[facility] reflux reflux [...] Date Date Clinician Codeine Propensi Active Rash [facility] ty to 02-08 [place] adverse 00:00: of reaction 00 Medicin s to e drug Epinephr Propensi Active [facility] ine ty to 02-08 [place] adverse 00:00: of reaction 00 Medicin s to e drug Other Propensi Active Rash steroids [facility] ty to 02-08 [facility] adverse 00:00: of reaction 00 Medicin s e Penicill Propensi Active Rash [facility] ins ty to 02-08 [facility] adverse 00:00: of reaction 00 Medicin s to e drug PENICILL Drug Active Rash NPI:[id number] INS Class 04-27 [id number] 00:00: 00 Codeine Propensi Active Itching [facility] i ty to 04-27 adverse 00:00: Hospita reaction 00 l s to drug Other Propensi Active Rash steroid [facility] ty to 04-27 adverse 00:00: Hospita reaction 00 l s Penicill Propensi Active Rash [facility] i ins ty to 04-27 adverse 00:00: Hospita reaction 00 l s to drug CODEINE DRUG Active ITCHING NPI:[id number] INGREDI 04-27 [id number] 00:00: 00 Family History Family Member Diagnosis Comments Start Date Stop Date Source Natural father Cancer [facility] Natural mother Diabetes [facility] Natural mother Heart disease [facility] Social History Social Habit Start Date Stop Date Quantity Comments Source Alcohol intake [facility] le[facility] of Medicine Sex Assigned At [facility] Co llege of Medicine Tobacco use and 2017-10-26 2017-10-26 Never used Religion exposure 00:00:00 00:00:00 Hospital Alcohol Comment 2017-10-25 2017-10-25 Drinks wine [facility] t 00:00:00 00:00:00 occasionally Hospital Smoking Status Start Date Stop Date Source Never smoker [facility] o f Medicine Medications Ordered Filled Start Stop Current Ordering Indication Dosage Frequency Signature Comments Components Source Medication Medication Date Date Medication? Clinician (SIG) Name Name LATANOPROST 2019-0 Yes Apply to [facility] 4-12 eye daily. [facility] 20:06: of 16 Medicin e VALACYCLOVI 2019-0 Yes Take by [facility] HCL OR 4-12 mouth [place] 20:06: daily. of 16 Medicin e Multiple 2018-0 Yes Take by [facility] 4-12 mouth. Colleg e nerals 20:06: of ([facility] 16 Medicin AREDS 2 OR) e Cyanocobala [...] Take by [facility] or Linseed, 4-12 mouth. [place] (FLAXSEED 20:06: of OIL OR) 16 Medicin e Probiotic 2018-0 Yes Take by [facility] or Product 4-12 mouth. [place] (PROBIOTIC 20:06: of OR) 16 Medicin e LATANOPROST 2019-0 Yes Apply to [facility] 4-12 eye daily. [place] 20:06: of 16 Medicin e VALACYCLOVI 2018-0 Yes Take by [facility] y[facility] R HCL OR 4-12 mouth [place] 20:06: daily. of 16 Medicin e Multiple 2018-0 Yes Take by [facility] 4-12 mouth. Colleg e nerals 20:06: of ([facility] 16 Medicin AREDS 2 OR) e Cyanocobala 2019-0 Yes Take by [facility] min (B-12 4-12 mouth. College OR) 20:06: of 16 Medicin e MAGNESIUM 2019-0 Yes Take by [facility] OR 4-12 mouth. College 20:06: of 16 Medicin e Psyllium 2019-0 Yes Take by [facility] (METAMUCIL 4-12 mouth. College OR) 20:06: of 16 Medicin e Flaxseed, 2019-0 Yes Take by [facility] Lin[facility], 4-12 mouth. [place] (FLAXSEED 20:06: of OIL OR) 16 Medicin e Probiotic 2019-0 Yes Take by [facility] or Product 4-12 mouth. [place] (PROBIOTIC 20:06: of OR) 16 Medicin e LATANOPROST 2019-0 Yes Apply to [facility] 4-12 eye daily. [place] 20:06: of 16 Medicin e VALACYCLOVI 2019-0 Yes Take by [facility] R HCL OR 4-12 mouth [place] 20:06: daily. of 16 Medicin e Multiple 2019-0 Yes Take by [facility] 4-12 mouth. Colleg e nerals 20:06: of ([facility] 16 Medicin AREDS 2 OR) e Cyanocobala 2018-0 Yes Take by [facility] min (B-12 4-12 mouth. [place] OR) 20:06: of 16 Medicin e MAGNESIUM 2019-0 Yes Take by [facility] OR 4-12 mouth. [place] 20:06: of 16 Medicin e Psyllium 2019-0 Yes Take by [facility] (METAMUCIL 4-12 mouth. [place] OR) 20:06: of 16 Medicin e Flaxseed, 2019-0 Yes Take by [facility] Linseed, 4-12 mouth. [place] (FLAXSEED 20:06: of OIL OR) 16 Medicin e Probiotic 2018-0 Yes Take by [facility] Product 4-12 mouth. [place] (PROBIOTIC 20:06: of OR) 16 Medicin e dorzolamide 2019-[address] [facility] (TRUSOPT) 2 3-01 into both Col lege % 00:00: eyes two of ophthalmic 00 times Medicin solution daily. e dorzolamide 2018-[address] [facility] (TRUSOPT) 2 3-01 into both Col lege % 00:00: eyes two of ophthalmic 00 times Medicin solution daily. e dorzolamide 2019-[address] [facility] (TRUSOPT) 2 3-01 into both Col lege % 00:00: eyes two of ophthalmic 00 times Medicin solution daily. e RESTASIS Yes INSTILL 1 [facility] 0.05 % 1-16 DROP INTO [place] ophthalmic 00:00: BOTH EYES of emulsion 00 TWICE A Medicin DAY e RESTASIS Yes INSTILL 1 [facility] 0.05 % 1-16 DROP INTO College ophthalmic 00:00: BOTH EYES of emulsion 00 TWICE A Medicin DAY e RESTASIS 2018-0 Yes INSTILL 1 [facility] 0.05 % [...] Source Future Scheduled 2020-06-30 INFLUENZA VACCINE (#1) N PI:[id number] Test 00:00:00 [code = INFLUENZA VACCINE (#1)] Future Scheduled 2018-02-12 MEDICARE ANNUAL NPI:[id number] Test 00:00:00 WELLNESS (YEAR 2 or FIRST YEAR if no IPPE) [code = MEDICARE ANNUAL WELLNESS (YEAR 2 or FIRST YEAR if no IPPE)] Future Scheduled 2016-02-24 PNEUMOCOCCAL 65+ YRS NPI :[id number] Test 00:00:00 (2 of 2 - PPSV23) [code = PNEUMOCOCCAL 65+ YRS (2 of 2 - PPSV23)] Future Scheduled 1950 Screening for NPI:[id number] Test 00:00:00 malignant neoplasm of colon (procedure) [code = 701834288] Future Scheduled 1950 Screening for NPI:[id number] Test 00:00:00 malignant neoplasm of breast (procedure) [code = 111354435] Future Scheduled MEDICARE AWV [code = [employer] [facility] of Test MEDICARE AWV] Medicine Future Scheduled TETANUS SHOT (ADULT) [facility] of Test [code = TETANUS SHOT Medicin e (ADULT)] Future Scheduled BMI FOLLOW UP PLAN [facility] of Test [code = BMI FOLLOW UP Medici ne PLAN] Future Scheduled HEPATITIS C SCREENING Ba [facility] of Test [code = HEPATITIS C Medicine SCREENING] Future Scheduled FALL SCREEN [code = [facility] [employer] of Test FALL SCREEN] Medicine Future Scheduled PNEUMOVAX >=65 [facility] llege of Test (PPSV23) [code = Medicine PNEUMOVAX >=65 (PPSV23)] Future Scheduled FLU VACCINE > 6 MONTHS B [facility] of Test [code = FLU VACCINE > Medici ne 6 MONTHS] Future Scheduled COLON CANCER [facility] of Test SCREENING: COLONOSCOPY Medic ine [code = COLON CANCER SCREENING: COLONOSCOPY] Future Scheduled MAMMOGRAM ANNUAL [code B [facility] of Test = MAMMOGRAM ANNUAL] Medicine Future Scheduled MEDICARE AWV [code = [facility] of Test MEDICARE AWV] Medicine Future Scheduled TETANUS SHOT (ADULT) [facility] of Test [code = TETANUS SHOT Medicin e (ADULT)] Future Scheduled BMI FOLLOW UP PLAN [facility] of Test [code = BMI FOLLOW UP Medici ne PLAN] Future Scheduled HEPATITIS C SCREENING Ba [facility] of Test [code = HEPATITIS C Medicine SCREENING] Future Scheduled FALL SCREEN [code = [facility] or College of Test FALL SCREEN] Medicine Future Scheduled PNEUMOVAX >=65 [facility] llege of Test (PPSV23) [code = Medicine PNEUMOVAX >=65 (PPSV23)] Future Scheduled FLU VACCINE > 6 MONTHS B [facility] of Test [code = FLU VACCINE > Medici ne 6 MONTHS] Future Scheduled COVID-19 VACCINE (1) [facility] Test [code = COVID-19 VACCINE (1)] Future Scheduled [facility] Test SCREENING [code = BREAST CANCER SCREENING] Future Scheduled [facility] Test [code = COLONOSCOPY SCREENING] Future Scheduled SHINGLES VACCINES (#[facility]) [facility] Test [code = SHINGLES VACCINES (#1)] Future Scheduled 65+ [facility]OCOCCAL [facility] Test VACCINE (1 of 1 - PPSV23) [code = 65+ PNEUMOCOCCAL VACCINE (1 of 1 - PPSV23)] Future Scheduled [facility]INE [facility] Test [code = INFLUENZA VACCINE] Future Scheduled COLON CANCER [facility] of Test SCREENING: COLONOSCOPY Medic ine [code = COLON CANCER SCREENING: COLONOSCOPY] Future Scheduled MAMMOGRAM ANNUAL [code B [facility] of Test = MAMMOGRAM ANNUAL] Medicine Future Scheduled MEDICARE AWV [code = [employer] of Test MEDICARE AWV] Medicine Future Scheduled TETANUS SHOT (ADULT) [employer] [place] of Test [code = TETANUS SHOT Medicin e (ADULT)] Future Scheduled BMI FOLLOW UP PLAN [facility] r [place] of Test [code = BMI FOLLOW UP Medici ne PLAN] Future Scheduled HEPATITIS C SCREENING Ba [facility] of Test [code = HEPATITIS C Medicine SCREENING] Future Scheduled FALL SCREEN [code = [facility] or College of Test FALL SCREEN] Medicine Future Scheduled PNEUMOVAX >=65 [facility] llege of Test (PPSV23) [code = Medicine PNEUMOVAX >=65 (PPSV23)] Future Scheduled FLU VACCINE > 6 MONTHS B [facility] of Test [code = FLU VACCINE > Medici ne 6 MONTHS] Future Scheduled COLON CANCER [facility] ege of Test SCREENING: COLONOSCOPY Medic ine [code = COLON CANCER SCREENING: COLONOSCOPY] Future Scheduled MAMMOGRAM ANNUAL [code B [facility] of Test = MAMMOGRAM ANNUAL] Medicine Encounters Start End Encounter Admission Attending Care Care Encounter Source Date/Time Date/Time Type Type Clinicians Facility Department ID 2020-12-25 2020-12-25 Outpatient [facility] [id number] -20 NPI:[id number] 09:40:00 09:40:00 [id number] 2019-08-05 2019-08-05 Office SHAYAN Hassan [id number] 12:51:09 13:32:29 Visit Yasmin AMBULATOR [id number] Y [id number] [id number] 2019-08-05 2019-08-05 Office SHAYAN Hassan [id number] [place] [address] 12:51:09 13:32:29 Visit Yasmin AMBULATOR [id number] College Y 0.2.7.2.686 of [id number] [facility] 800 e 2019-07-02 2019-07-02 Office SHAYAN Hassan [id number] 10:30:43 11:41:19 Visit Yasmin AMBULATOR [id number] Y [id number] [id number] 800 2019-07-02 2019-07-02 Office SHAYAN Hassan [id number] [facility] 10:30:43 11:41:19 Visit Yasmin AMBULATOR [id number] College Y [id number] of [id number] [facility] 800 e 2019-06-17 2019-06-17 Office SHAYAN Hassan [id number] 12:47:15 13:25:21 Visit Yasmin AMBULATOR [id number] Y [id number] [id number] 800 2019-06-17 2019-06-17 Office SHAYAN Hassan [id number] [facility] 12:47:15 13:25:21 Visit Yasmin AMBULATOR [id number] College Y [id number] of [id number] [facility] 800 e Results Test Description Test Time Test Comments Results Result [facility] e Comments FL, BELOPH, SWALLOW 2019-03-13 Reason for FINAL REPORT PATIENT FUNCTION, WITH 11:13:00 Exam:->r07.0 ID: [id number] CINE OR VIDEO Modified barium swallow exam [...] MDReport Verified Date/Time: 03/13/2019 11:13:50 Reading Location: [address] Radiology Reading Room
[2022-03-06] MEDS ORDERED: MUPIROCIN 2% OINT 22GM TUBE TOP ONE (15:17)
[2022-03-06] MEDS ORDERED: TETANUS & DIPHTHERIA TOX,ADULT 0.5 ML VIAL ONE (15:17)
--- NOTE | 2022-03-06 16:16 | RAD REPORT ---
EXAM DESCRIPTION: CT - Head C Spine Cap Wo Con - 03/06/2022 3:57 pm TECHNIQUE: Computed axial tomography of the head and cervical spine was obtained. Coronal and sagitt al reconstruction was performed Computed axial tomography of the chest, abdomen and pelvis was obtained. Contrast was not requested. All CT scans are performed using dose optimization technique as appropriate and may include automated exposure control or mA/KV adjustment according to patient size. CLINICAL HISTORY: Head and neck injury with chest and abdominal pain status post fall COMPARISON 2020 and 2021 FINDINGS: An intracranial bleed is not seen. The ventricles are normal in caliber. An extra-axial fluid collection is not noted. . Fluid within the sinuses/mastoids is not seen. A cervical fracture is not seen. No dislocation is noted. Anterior fusion C4 through C6 The evaluation of mediastinum, otis, vessels, solid organs and bowel are limited secondary to the lac k of contrast administration. A mediastinal hematoma is not noted. A pleural effusion is not seen. A lung contusion is not present. The liver,spleen, pancreas, adrenals,kidneys and bladder appear grossly normal. Fusion involves the sacroiliac joints IMPRESSION: 1. No acute intracranial abnormality is seen. 2. A cervical fracture is not visualized. If the patient continues have symptoms to suggest intracran ial/spinal cord pathology MRI be recommended 3. No traumatic abnormality involving the chest/abdomen/pelvis.
--- NOTE | 2022-03-06 16:18 | RAD REPORT ---
EXAM DESCRIPTION: RAD - Ankle Right 3 View - 03/06/2022 4:08 pm CLINICAL HISTORY: Right ankle pain status post fall FINDINGS: No fracture or dislocation is seen.
--- NOTE | 2022-03-06 16:18 | RAD REPORT ---
EXAM DESCRIPTION: RAD - Wrist Right 3 View - 03/06/2022 4:08 pm CLINICAL HISTORY: Right wrist pain status post injury FINDINGS: No fracture or dislocation is seen. Bones are osteoporotic If the patient continues to have symptoms to suggest an occult fracture then a followup plain film [place] in 7 days would be recommended.
--- NOTE | 2022-03-06 16:20 | RAD REPORT ---
EXAM DESCRIPTION: RAD -Hand Left 3 View - 03/06/2022 4:08 pm CLINICAL HISTORY: Left hand pain status post injury FINDINGS: No fracture or dislocation is seen.
--- NOTE | 2022-03-06 16:21 | RAD REPORT ---
EXAM DESCRIPTION: RAD - Forearm Left - 03/06/2022 4:08 pm CLINICAL HISTORY: Left forearm pain status post injury FINDINGS: No fracture is seen
--- NOTE | 2022-03-06 16:22 | RAD REPORT ---
EXAM DESCRIPTION: RAD - Hand Right 3 View - 03/06/2022 4:08 pm CLINICAL HISTORY: Right hand pain status post injury FINDINGS: No fracture or dislocation is seen.
--- NOTE | 2022-03-06 16:24 | RAD REPORT ---
EXAM DESCRIPTION: RAD - Foot Right 3 View - 03/06/2022 4:08 pm CLINICAL HISTORY: Right foot pain status post injury FINDINGS: No fracture or dislocation is seen
--- NOTE | 2022-03-06 16:30 | ER ---
Nurse's Notes [facility] Name: Beryl Shah Age: 72 yrs Sex: Female : 1950 Arrival Date: 03/06/2022 Time: 13:47 Bed 15 Private MD: Diagnosis: Fall on same level, unspecified;Contusion of hand;Contusion of forearm;Contusion of right ankle;Contusion of right foot;Contusion of other part of head-FOREHEAD;Strain of muscle, fascia and tendon at neck level, initial encounter;Laceration without foreign body of left hand;Laceration without foreign body of right hand Presentation: 03/06 13:52 Chief complaint: EMS states: MECHANICAL FALL AFTER MISSING STEP. Coronavirus screen: At bp this time, the client does not indicate any symptoms associated with coronavirus-19. Ebola Screen: No symptoms or risks identified at this time. Initial Sepsis Screen: Does the patient meet any 2 criteria? No. Patient's initial sepsis screen is negative. Does the patient have a suspected source of infection? No. Patient's initial sepsis screen is negative. Risk Assessment: Do you want to hurt yourself or someone else? Patient reports no desire to harm self or others. Onset of symptoms was March 06, 2022 at 13:00. 13:52 Method Of Arrival: EMS: [facility] bp 13:52 Acuity: ANDREA 3 bp Triage Assessment: 13:55 General: Appears in no apparent distress. uncomfortable, obese, Behavior is bp cooperative, appropriate for age, anxious. Pain: Complains of pain in face, right hand and left hand. EENT: No deficits noted. Neuro: No deficits noted. Cardiovascular: No deficits noted. Respiratory: No deficits noted. GI: No signs and/or symptoms were reported involving the gastrointestinal system. : No signs and/or symptoms were reported regarding the genitourinary system. Derm: No deficits noted. Musculoskeletal: No deficits noted. Historical: - Allergies: 13:55 Adhesives; bp 13:55 Codeine; bp 13:55 PENICILLINS; bp 13:55 steroids; bp - PMHx: 13:55 HERPES; osteoarthritis; TIA; Gastric Reflux; bp - PSHx: 13:55 Appendectomy; Cholecystectomy; partial hysterectomy; bp - Immunization history:: Adult Immunizations up to date. - Social history:: Smoking status: Patient denies any tobacco usage or history of. Screenin:55 Abuse screen: Denies threats or abuse. Denies injuries from another. Nutritional bp screening: No deficits noted. Tuberculosis screening: No symptoms or risk factors identified. Fall Risk None identified. Assessment: 13:55 General: SEE TRIAGE NOTE. bp 14:36 Reassessment: Patient appears in no apparent distress at this time. Patient and/or ld1 family updated on plan of care and expected duration. Pain level reassessed. General: Appears in no apparent distress. comfortable, Behavior is calm, cooperative, appropriate for age. Pain: Complains of pain in face, right foot and left knee Pain does not radiate. Pain currently is 7 out of 10 on a pain scale. Quality of pain is described as throbbing, Pain began suddenly. Neuro: Level of Consciousness is awake, alert, obeys commands, Oriented to person, place, time, situation. Cardiovascular: Capillary refill < 3 seconds Patient's skin is warm and dry. Rhythm is sinus rhythm. Respiratory: Airway is patent Respiratory effort is even, unlabored. GI: Abdomen is round non-distended. : No signs and/or symptoms were reported regarding the genitourinary system. EENT: No signs and/or symptoms were reported regarding the EENT system. Derm: No signs and/or symptoms reported regarding the dermatologic system. Musculoskeletal: Reports pain in face, right foot and left knee. 15:38 Reassessment: Patient appears in no apparent distress at this time. Patient and/or ld1 family updated on plan of care and expected duration. Pain level reassessed. Patient is alert, oriented x 3, equal unlabored respirations, skin warm/dry/pink. Vital Signs: 13:52 BP 153 / 74; Pulse 73; Resp 17; Temp 97.9; Pulse Ox 95% ; bp 14:37 BP 140 / 59; Pulse 66; Resp 25; Pulse Ox 98% on R/A; Pain 7/10; ld1 15:38 BP 114 / 58; Pulse 68; Resp 18; Pulse Ox 98% on R/A; Pain 3/10; ld1 ED Course: 13:47 Patient arrived in ED. ds1 13:48 Jose Desai MD is Attending Physician. holli 13:52 Stan Shen, PRINCE is Primary Nurse. bp 13:55 Triage completed. bp 13:55 Arm band placed on. bp 13:55 Patient has correct armband on for positive identification. Bed in low position. Call bp light in reach. Side rails up X2. Adult w/ patient. 14:36 Amna Powers, RN is Primary Nurse. ld1 14:36 No provider procedures requiring assistance completed. ld1 15:59 CT Traumagram (Head C Spine CAP wo con) In Process Unspecified. EDMS 16:10 Hand Right 3 View XRAY In Process Unspecified. EDMS 16:10 Wrist Right 3 View XRAY In Process Unspecified. EDMS 16:10 Hand Left 3 View XRAY In Process Unspecified. EDMS 16:10 Forearm Left XRAY In Process Unspecified. EDMS 16:10 Foot Right 3 View XRAY In Process Unspecified. EDMS 16:10 Ankle Right 3 View XRAY In Process Unspecified. EDMS 16:29 Sánchez Shaffer MD is Referral Physician. [facility] 16:39 Patient did not have IV access during this emergency room visit. 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 Exp: ld1 01/08/2024. Lot #: [id number]. } Route: IM; Site: left deltoid; 15:34 Drug: Bactroban (mupirocin) Ointment 2 % 1 application Route: Topical; Site: affected ld1 area; Outcome: 16:29 Discharge ordered by . [facility] 16:38 Discharged to home ambulatory, with family. ld1 16:38 Condition: stable 16:38 Discharge instructions given to patient, family, Instructed on discharge instructions, follow up and referral plans. medication usage, Demonstrated understanding of instructions, follow-up care, medications, Prescriptions given X 3. 16:39 Patient left the ED. ld1 Signatures: Dispatcher [employer] Jose Roberts MD MD cha Sanford, Demi ds1 Stan Shen, PRINCE RN bp Amna Powers, RN RN ld1
--- NOTE | 2022-03-06 16:30 | EDPHYS ---
Physician Documentation [facility] Name: Beryl Shah Age: 72 yrs Sex: Female : 1950 Arrival Date: 03/06/2022 Time: 13:47 Bed 15 Private MD: ED Physician Jose Desai HPI: 03/06 15:04 This 72 yrs old Female presents to ER via EMS with complaints of Fall Injury. holli 15:04 Details of fall: The patient fell from an upright position, while walking. Onset: The holli symptoms/episode began/occurred just prior to arrival. Associated injuries: The patient sustained injury to the head, neck injury, upper back injury, injury to the low back, right arm and left arm, decreased range of motion. Severity of symptoms: At their worst the symptoms were mild, moderate, in the emergency department the symptoms are unchanged. The patient has not experienced similar symptoms in the past. Historical: - Allergies: 13:55 Adhesives; bp 13:55 Codeine; bp 13:55 PENICILLINS; bp 13:55 steroids; bp - PMHx: 13:55 HERPES; osteoarthritis; TIA; Gastric Reflux; bp - PSHx: 13:55 Appendectomy; Cholecystectomy; partial hysterectomy; bp - Immunization history:: Adult Immunizations up to date. - Social history:: Smoking status: Patient denies any tobacco usage or history of. ROS: 15:07 Constitutional: Negative for fever, chills, and weight loss, Eyes: Negative for injury, holli pain, redness, and discharge, ENT: Negative for injury, pain, and discharge, Neck: Negative for injury, pain, and swelling, Cardiovascular: Negative for chest pain, palpitations, and edema, Respiratory: Negative for shortness of breath, cough, wheezing, and pleuritic chest pain, Abdomen/GI: Negative for abdominal pain, nausea, vomiting, diarrhea, and constipation, : Negative for injury, bleeding, discharge, and swelling, Skin: Negative for injury, rash, and discoloration, Neuro: Negative for headache, weakness, numbness, tingling, and seizure, Psych: Negative for depression, anxiety, suicide ideation, homicidal ideation, and hallucinations, Allergy/Immunology: Negative for hives, rash, and allergies, Endocrine: Negative for neck swelling, polydipsia, polyuria, polyphagia, and marked weight changes, Hematologic/Lymphatic: Negative for swollen nodes, abnormal bleeding, and unusual bruising. 15:07 Back: Positive for decreased range of motion, pain at rest, pain with movement, of the thoracic area, lumbar area and sacrum. 15:07 MS/extremity: Positive for deformity, ecchymosis, laceration, pain, swelling, tenderness, of the right hand, left hand, right arm, left arm and right leg. Exam: 15:07 Constitutional: This is a well developed, well nourished patient who is awake, alert, holli and in no acute distress. Head/Face: Normocephalic, atraumatic. Eyes: Pupils equal round and reactive to light, extra-ocular motions intact. Lids and lashes normal. Conjunctiva and sclera are non-icteric and not injected. Cornea within normal limits. Periorbital areas with no swelling, redness, or edema. ENT: Nares patent. No nasal discharge, no septal abnormalities noted. Tympanic membranes are normal and external auditory canals are clear. Oropharynx with no redness, swelling, or masses, exudates, or evidence of obstruction, uvula midline. Mucous membranes moist. Neck: Trachea midline, no thyromegaly or masses palpated, and no cervical lymphadenopathy. Supple, full range of motion without nuchal rigidity, or vertebral point tenderness. No Meningismus. Chest/axilla: Normal chest wall appearance and motion. Nontender with no deformity. No lesions are appreciated. Cardiovascular: Regular rate and rhythm with a normal S1 and S2. No gallops, murmurs, or rubs. Normal PMI, no JVD. No pulse deficits. Respiratory: Lungs have equal breath sounds bilaterally, clear to auscultation and percussion. No rales, rhonchi or wheezes noted. No increased work of breathing, no retractions or nasal flaring. Abdomen/GI: Soft, non-tender, with normal bowel sounds. No distension or tympany. No guarding or rebound. No evidence of tenderness throughout. Female : Normal external genitalia. Skin: Warm, dry with normal turgor. Normal color with no rashes, no lesions, and no evidence of cellulitis. Neuro: Awake and alert, GCS 15, oriented to person, place, time, and situation. Cranial nerves II-XII grossly intact. Motor strength 5/5 in all extremities. Sensory grossly intact. Cerebellar exam normal. Normal gait. Psych: Awake, alert, with orientation to person, place and time. Behavior, mood, and affect are within normal limits. 15:07 Back: pain, that is mild, that is moderate, ROM is painful, with all movement, normal spinal alignment noted, CVA tenderness, is absent, vertebral tenderness, is not appreciated, muscle spasm, is appreciated in the left low back, left mid back, right mid back and right low back. Vital Signs: 13:52 BP 153 / 74; Pulse 73; Resp 17; Temp 97.9; Pulse Ox 95% ; bp 14:37 BP 140 / 59; Pulse 66; Resp 25; Pulse Ox 98% on R/A; Pain 7/10; ld1 15:38 BP 114 / 58; Pulse 68; Resp 18; Pulse Ox 98% on R/A; Pain 3/10; ld1 MDM: 13:48 Patient medically screened. holli 15:09 Differential diagnosis: closed fracture, contusion, fracture, sprain. Differential [facility] diagnosis: closed head injury, contusion, fracture, laceration, multiple trauma, sprain, strain. Data reviewed: vital signs, nurses notes, EMS record, lab test result(s), radiologic studies, CT scan, plain films. Data interpreted: air sampling and monitoring: rate is 66 beats/min, Pulse oximetry: on room air is 98 %. Test interpretation: by ED physician or midlevel provider: plain radiologic studies. Counseling: I had a detailed discussion with the patient and/or guardian regarding: the historical points, exam findings, and any diagnostic results supporting the discharge/admit diagnosis, lab results, radiology results, the need for outpatient follow up, for definitive care, a family practitioner, a orthopedic surgeon. 03/06 15:00 Order name: CT Traumagram (Head C Spine CAP wo con) [facility] 03/06 15:00 Order name: Hand Right 3 View XRAY [facility] 03/06 15:00 Order name: Wrist Right 3 View XRAY [facility] 03/06 15:00 Order name: Hand Left 3 View XRAY [facility] 03/06 15:00 Order name: Forearm Left XRAY [facility] 03/06 15:00 Order name: Foot Right 3 View XRAY [facility] 03/06 15:00 Order name: Ankle Right 3 View XRAY [facility] 03/06 15:00 Order name: Ice pack; Complete Time: 15:02 holli 03/06 15:00 Order name: Wound Care; Complete Time: 15:02 holli Administered Medications: 15:34 Drug: Tetanus-Diphtheria Toxoid Adult 0.5 ml {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 Exp: ld1 01/08/2024. Lot #: [id number]. } Route: IM; Site: left deltoid; 15:34 Drug: Bactroban (mupirocin) Ointment 2 % 1 application Route: Topical; Site: affected ld1 area; Disposition Summary: 03/06/22 16:29 Discharge Ordered Location: Home holli Problem: new holli Symptoms: have improved holli Condition: Stable holli Diagnosis - Fall on same level, unspecified holli - Contusion of hand holli - Contusion of forearm holli - Contusion of right ankle holli - Contusion of right foot holli - Contusion of other part of head - FOREHEAD holli - Strain of muscle, fascia and tendon at neck level, initial encounter holli - Laceration without foreign body of left hand holli - Laceration without foreign body of right hand holli Followup: holli - With: Private Physician - When: 2 - 3 days - Reason: Recheck today's complaints, Continuance of care, Re-evaluation by your physician Followup: holli - With: - When: 2 - 3 days - Reason: Recheck today's complaints, Re-evaluation by your physician Discharge Instructions: - Discharge Summary Sheet holli - Contusion holli - Muscle Strain holli - Contusion, [id number] holli - Muscle Strain, [id number] holli Forms: - Medication Reconciliation Form holli - Thank You Letter holli - Antibiotic Education holli - Prescription Opioid Use [facility] Prescriptions: - Cephalexin 500 mg Oral Capsule - take 1 capsule by ORAL route every 6 hours for 7 days; 28 capsule; Refills: 0, holli Product Selection Permitted - Tylenol 325 mg Oral Tablet - take 2 tablets by ORAL route every 6 hours as needed; 1 bottle; Refills: 0, holli Product Selection Permitted - mupirocin 2 % Topical ointment - apply 1 application by TOPICAL route 3 times per day; 45 gram; Refills: 0, cp Product Selection Permitted Signatures: Dispatcher [employer] Jose Roberts MD MD cha Peltier, Brian, RN RN Amna Powers RN RN ld1
[2022-03-06 16:44] VITALS: TEMP 97.9
[2022-03-06 16:45] VITALS: O2SAT 98
[2022-03-06 16:46] VITALS: BP 114/58
== END 2022-03-06 16:39 | disposition home or self-care (01) ==
LOC: ER 13:46
DX: S61.412A Laceration without foreign body of left hand, initial encounter (principal); S61.411A Laceration without foreign body of right hand, initial encounter; S16.1XXA Strain of muscle, fascia and tendon at neck level, initial encounter; S00.83XA Contusion of other part of head, initial encounter; S90.31XA Contusion of right foot, initial encounter; S90.01XA Contusion of right ankle, initial encounter; S50.11XA Contusion of right forearm, initial encounter; S60.221A Contusion of right hand, initial encounter; W18.30XA Fall on same level, unspecified, initial encounter; Z23 Encounter for immunization; Z86.73 Personal history of transient ischemic attack (TIA), and cerebral infarction without residual deficits; Z88.0 Allergy status to penicillin; Z88.5 Allergy status to narcotic agent; Z88.8 Allergy status to other drugs, medicaments and biological substances; Z91.048 Other nonmedicinal substance allergy status
CPT/HCPCS: 70450; 71250; 72125; 90471; 90714; 99284

== ENCOUNTER 2022-10-08 17:36 | Emergency (ER) | payer OTHER ==
--- OUTSIDE RECORDS SUMMARY | 2022-10-08 17:40 | XMS REPORT | Continuity of Care Document ---
:[address] [facility] t Address [address] [place] [address] Care Team Providers Name Role Phone Pcp MD, Veda Primary Care Physician Unavailable MALORIE_RAFI_Francisco_Marva Attending Clinician Unavailable Mo HAZEL, Yasmin Attending Clinician MALORIE_RAFI_Francisco_Marva Admitting Clinician Unavailable Payers Payer Name Policy Type Policy Number Effective Date Expiration Date Kyaw BROWN (MEDICARE [id number] REPLACEMENT PPO) Problems Condition Condition Condition Status Onset Resolution Last Treating Co mments Source Name Details Category Date Date Treatment Clinician Date Pharyngoes Pharyngoes Disease Active [facility] ophageal -12 [facility] e dysphagia dysphagia 00:00: of 00 Medicin e Hoarse Hoarse Disease Active [facility] 4-12 College 00:00: of 00 Medicin e Muscle Muscle Disease Active [facility] tension tension 4-12 [facility] dysphonia dysphonia 00:00: of 00 Medicin e Throat Throat Disease Active [facility] pain pain 4-12 [facility] 00:00: of 00 Medicin e GERD GERD Disease Active 2016-10 [facility] (gastroeso (gastroeso 2 st phageal phageal 00:00: Hospita reflux reflux 00 l disease) disease) Herpesviru Herpesviru Problem Active 2016-10 Candice neri 0-23 Medical infection Infection 00:00: 00 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 00 Esophageal Esophageal Problem Active 2016-10 [facility] erosions Erosions 0-23 Medica l 00:00: 00 Gastric Gastric Problem Active 2016-10 [facility] erosion Erosion 0-23 Medical 00:00: 00 Disorder Disorder Problem Active 2016-10 [facility] a of of 0-23 Medical musculoske Musculoske 00:00: letal letal 00 system System Osteopenia Osteopenia Problem Active 2016-10 [facility] 0-23 Medical 00:00: 00 Postoperat Postoperat Disease Active Overview : Method[facility] [...] 00:00: Hospit a wall wall 00 l Mammograph Mammograph Problem Active [facility] y abnormal y Abnormal Me dical Allergies, Adverse Reactions, Alerts Allergy Allergy Status Severity Reaction(s) Onset Inactive Treating Comm ents Source Name Type Date Date Clinician Codeine Propensi Active Rash [facility] ty to 12 [facility] adverse 00:00: of reaction 00 Medicin s to e drug Epinephr Propensi Active [facility] ine ty to 12 [place] adverse 00:00: of reaction 00 Medicin s to e drug Other Propensi Active Rash steroids [facility] ty to 12 [place] adverse 00:00: of reaction 00 Medicin s e Penicill Propensi Active Rash [facility] ins ty to 02-08 [place] adverse 00:00: of reaction 00 Medicin s to e drug Codeine Propensi Active Itching Method i ty to 04-27 adverse 00:00: Hospita reaction 00 l s to drug Other Propensi Active Rash steroid [facility] ty to 6-29 st adverse 00:00: Hospita reaction 00 l s Penicill Propensi Active Rash Method i ins ty to 04-27 st adverse 00:00: Hospita reaction 00 l s to drug CODEINE DRUG Active ITCHING [facility] INGREDI 04-27 ity of 00:[facility]: [place] [facility] PENICILL Drug Active Rash [facility] INS Class 04-27 ity of 00:00: [place] 00 [facility] Penicill Propensi Active Rash Method i ins ty to 04-27 st adverse 00:00: Hospita reaction 00 l s to drug Codeine Allergy Active [facility] to Medical substanc e Penicill Allergy Active [facility] in g to Medical substanc e Family History Family Member Diagnosis Comments Start Date Stop Date Source Natural father Cancer [facility] Natural mother Diabetes [facility] Natural mother Heart disease [facility] Social History Social Habit Start Date Stop Date Quantity Comments Source Alcohol intake 2017-10-26 2017-10-26 Current non-drinker M ethodist 00:00:00 00:00:00 of alcohol Hospital (finding) Tobacco use and 2017-10-26 2017-10-26 Never used [facility] 00:00:00 00:00:00 Hospital Alcohol Comment 2017-10-25 2017-10-25 Drinks wine Methodis t 00:00:00 00:00:00 occasionally Hospital Sex Ass[birth year] At [birth year] [facility] 00:00:00 00:00:00 Hospital Smoking Status Start Date Stop Date Source Never smoker [facility] o Medicine Medications Ordered Filled Start Stop Current Ordering Indication Dosage Frequency Signature Comments Components Source Medication Medication Date Date Medication? Clinician (SIG) Name Name duloxetine duloxetine 2021-10 No duloxetine [facility] 20 mg 20 mg 1-16 20 mg Medical capsule,del capsule,del 00:00: capsule,de ayed ayed 00 layed release release release TAKE 1 TAKE 1 TAKE 1 CAPSULE BY CAPSULE BY CAPSULE BY MOUTH EVERY MOUTH EVERY MOUTH DAY DAY EVERY DAY LATANOPROST 2018- Yes Apply to Joe AYALA 4-12 eye daily. College 20:06: of 16 Medicin e VALACYCLOVI Yes Take by [facility] R HCL OR 4-12 mouth College 20:06: daily. of 16 Medicin e Multiple Yes Take by [facility] Vitamins-Mi 4-12 mouth. Colleg e nerals 20:06: of (ICAPS 16 Medicin AREDS 2 OR) e Cyanocobala 2019-0 Yes Take by [place] [facility] min (B-12 4-12 mouth. College OR) 20:06: of 16 Medicin e MAGNESIUM 2019-0 Yes Take by [facility] OR 4-12 mouth. College 20:06: of 16 Medicin e Psyllium 2019-0 Yes Take by [facility] (METAMUCIL 4-12 mouth. College OR) 20:06: of 16 Medicin e Flaxseed, 2019-0 Yes Take by [facility] Linseed, 4-12 mouth. College (FLAXSEED 20:06: of OIL OR) 16 Medicin e Probiotic 2019-0 Yes Take by [facility] Product 4-12 mouth. [place] (PROBIOTIC 20:06: of OR) 16 Medicin e LATANOPROST 2019-0 Yes Apply to [facility] OP 4-12 eye daily. College 20:06: of 16 Medicin e VALACYCLOVI 2019-0 Yes Take by [place] [facility] R HCL OR 4-12 mouth College 20:06: daily. of 16 Medicin e Multiple 2018-0 Yes Take by [facility] Vitamins-Mi 4-12 mouth. Colleg e nerals 20:06: of (ICAPS 16 Medicin AREDS 2 OR) e Cyanocobala 2019-0 Yes Take by [place] ro[facility] min (B-12 4-12 mouth. College OR) 20:06: of 16 Medicin e MAGNESIUM 2019-0 Yes Take by [facility] OR 4-12 mouth. College 20:06: of 16 Medicin e Psyllium 2019-0 Yes Take by [facility] (METAMUCIL 4-12 mouth. College OR) 20:06: of 16 Medicin e Flaxseed, 2019-0 Yes Take by [facility] Linseed, 4-12 mouth. College (FLAXSEED 20:06: of OIL OR) 16 Medicin e Probiotic 2019-0 Yes Take by [facility] Product 4-12 mouth. [place] (PROBIOTIC 20:06: of OR) 16 Medicin e LATANOPROST 2019-0 Yes Apply to [facility] OP 4-12 eye daily. College 20:06: of 16 Medicin e VALACYCLOVI 2019-0 Yes Take by [place] [facility] R HCL OR 4-12 mouth College 20:06: daily. of 16 Medicin e Multiple [id number] Yes Take by [facility] Vitamins-Mi 4-12 mouth. Colleg e nerals 20:06: of (ICAPS 16 Medicin AREDS 2 OR) e Cyanocobala 2018-0 Yes Take by [place] ro[facility]e min (B-12 4-12 mouth. College OR) 20:06: of 16 Medicin e MAGNESIUM 2019-0 Yes Take by [facility] r OR 4-12 mouth. College 20:06: of 16 Medicin e Psyllium 2019-0 Yes Take by [facility] (METAMUCIL 4-12 mouth. College OR) 20:06: of 16 Medicin e Flaxseed, 2019-0 Yes Take by [facility] r Linseed, 4-12 mouth. [place] (FLAXSEED 20:06: of OIL OR) 16 Medicin e Probiotic 2018-0 Yes Take by [facility] r Product 4-12 mouth. [place] (PROBIOTIC 20:06: of OR) 16 Medicin e dorzolamide 2018- Yes Place into [facility] (TRUSOPT) 2 3-01 both eyes Col lege % 00:00: two times of ophthalmic 00 daily. Medicin solution e dorzolamide 2018-[address] [facility] (TRUSOPT) 2 3-01 both eyes Col lege % 00:00: two times of ophthalmic 00 daily. Medicin solution e dorzolamide 2019-[address] [facility] (TRUSOPT) 2 3-01 both eyes Col lege % 00:00: two times of ophthalmic 00 daily. Medicin solution e RESTASIS Yes INSTILL 1 [facility] 0.05 % 1-16 DROP INTO [facility] ophthalmic 00:00: BOTH EYES of emulsion 00 TWICE A Medicin DAY e RESTASIS Yes INSTILL 1 [facility] 0.05 % 1-16 DROP INTO [place] ophthalmic 00:00: BOTH EYES of emulsion 00 TWICE A Medicin DAY e RESTASIS 2018- Yes INSTILL 1 [facility] 0.05 % 1-16 DROP INTO [facility] ophthalmic 00:00: BOTH EYES of emulsion 00 TWICE A Medicin DAY e cycloSPORIN 2016-10 Yes Apply to Nm thodi E (RESTASIS 2-[address] MULTIDOSE) 19:55: Hospita 0.05 % 02 l drops cycloSPORIN 2016-10 Yes Apply to Nm thodi E (RESTASIS 2-[address] MULTIDOSE) 13:55: Hospita 0.05 % 02 l drops ALPHAGAN P 2015-10 Yes INSTILL 1 Me thodi 0.1 % drops 2-[address] 00:00: BOTH EYES Hospita 00 EVERY 12 l HOURS ALPHAGAN P 2015-10 Yes INSTILL 1 Me thodi 0.1 % drops 2-[address] 00:00: BOTH EYES Hospita 00 EVERY 12 l HOURS valACYclovi 2015-10 Yes 500mg QD Take 500 M ethodi r (VALTREX) 1-[address] 500 MG 00:00: mouth once Hospi ta tablet 00 daily. l valACYclovi 2015-10 Yes 500mg QD Take 500 M ethodi r (VALTREX) 1-[address] 500 MG 00:00: mouth once Hospi ta tablet 00 daily. l famotidine 2015-10 Yes 20mg QD Take 20 mg M ethodi (PEPCID) 20 -[address] MG tablet 00:00: once Hospita 00 daily. l famotidine 2015-10 Yes 20mg QD Take 20 mg M ethodi (PEPCID) 20 -[address] MG tablet 00:00: once Hospita 00 daily. l latanoprost 2015-10 Yes PUT 1 DROP [facility] (XALATAN) 0-[address] 0.005 % 00:00: EYES AT Hospita ophthalmic 00 BEDTIME l solution latanoprost 2015-10 Yes PUT 1 DROP [facility] (XALATAN) 0-[address] 0.005 % 00:00: EYES AT Hospita ophthalmic 00 BEDTIME l solution amitriptyli amitriptyli No amitriptyl [facility] ne 10 mg ne 10 mg ine 10 mg Me dical tablet TAKE tablet TAKE tablet 1 TABLET BY 1 TABLET BY TAKE 1 MOUTH MOUTH TABLET BY EVERYDAY AT EVERYDAY AT MOUTH BEDTIME BEDTIME EVERYDAY AT BEDTIME valacyclovi valacyclovi No valacyclov [facility] r 500 mg r 500 mg ir 500 mg Me dical tablet TAKE tablet TAKE tablet 1 TABLET BY 1 TABLET BY TAKE 1 MOUTH EVERY MOUTH EVERY TABLET BY DAY DAY MOUTH EVERY DAY Immunizations Ordered Immunization Filled Immunization Date Status Commen ts Source Name Name influenza, influenza, 2018-08-02 Completed [facility] unspecified unspecified 00:00:00 formulation formulation pneumococcal pneumococcal 2017-07-30 Completed [facility] ical conjugate PCV 13 conjugate PCV 13 00:00:00 pneumococcal pneumococcal 2016-08-08 Completed [facility] Med ical conjugate PCV 13 conjugate PCV 13 00:00:00 Procedures Procedure Date / Time Performed Performing Clinician Sourc e MAMMO, screening, bilateral 2022-09-14 00:00:00 [facility] Medical BONE DENSITY MEASUREMENT 2022-09-14 00:00:00 Rahel via Medical USING DEDICATED X RAY MACHINE Inguinal Hernia 2017-09-29 00:00:00 [facility] Back / Spine Surgery 2015-07-30 00:00:00 [facility] Medical Breast Surgery - Lumpectomy 2001-10-30 00:00:00 [facility] Medical Cholecystectomy 1994-10-30 00:00:00 [facility] (Gallbladder) Back / Spine Surgery 1968-10-30 00:00:00 [facility] Medical Tonsillectomy 1967-10-30 00:00:00 [facility] Hysterectomy - Total [facility] mickey Appendectomy [facility] Medical Plan of Care Planned Activity Planned Date Details Comments Source Diagnostic Test 2022-09-14 Mucor racemosus IgE [facility] Medical Pending 00:00:00 Ab [Units/volume] in Serum [code = 6182-0] Diagnostic Test 2022-09-14 [place] IgE Ab [facility] M edical Pending 00:00:00 [Units/volume] in Serum [code = 6195-2] Future Scheduled 2022-08-31 HEPATITIS B VACCINES Met [facility] Test 16:36:10 (1 of 3 - 3-dose series) [code = HEPATITIS B VACCINES (1 of 3 - 3-dose series)] Future Scheduled 2022-08-31 COVID-19 VACCINE (#1) [facility] Test 16:36:10 [code = COVID-19 VACCINE (#1)] Future Scheduled 2022-08-31 BREAST CANCER [facility] Test 16:36:10 SCREENING [code = BREAST CANCER SCREENING] Future Scheduled 2022-08-31 COLONOSCOPY SCREENING [facility] Test 16:36:10 [code = COLONOSCOPY SCREENING] Future Scheduled 2022-08-31 SHINGLES VACCINES (1 Met [facility] Test 16:36:10 of 2) [code = SHINGLES VACCINES (1 of 2)] Future Scheduled 2022-08-31 65+ PNEUMOCOCCAL [facility] Test 16:36:10 VACCINE (1 - PCV) [code = 65+ PNEUMOCOCCAL VACCINE (1 - PCV)] Future Scheduled 2022-08-31 INFLUENZA VACCINE [facility] Test 16:36:10 [code = INFLUENZA VACCINE] Future Scheduled 2020-06-[address] [facility] Test 00:00:00 (#1) [code = Medical Center INFLUENZA VACCINE (#1)] Future Scheduled 2018-02-[address] [facility] Test 00:00:00 WELLNESS (YEAR 2 or Medical Center FIRST YEAR if no IPPE) [code = MEDICARE ANNUAL WELLNESS (YEAR 2 or FIRST YEAR if no IPPE)] Future Scheduled 2016-02-24 PNEUMOCOCCAL 65+ YRS [facility] Test 00:00:00 (2 of 2 - PPSV23) Medical Ce nter [code = PNEUMOCOCCAL 65+ YRS (2 of 2 - PPSV23)] Future Scheduled [address] [facility] Test 00:00:00 malignant neoplasm of [facility] colon (procedure) [code = 703630153] Future Scheduled [address] [facility] Test 00:00:00 malignant neoplasm of [facility] breast (procedure) [code = 959820815] Future Scheduled COLON CANCER [facility] ege of Test SCREENING: Medicine COLONOSCOPY [code = COLON CANCER SCREENING: COLONOSCOPY] Future Scheduled MAMMOGRAM ANNUAL [facility] of Test [code = MAMMOGRAM Medicine ANNUAL] Future Scheduled MEDICARE AWV [code = [facility] of Test MEDICARE AWV] Medicine Future Scheduled TETANUS SHOT (ADULT) [facility] of Test [code = TETANUS SHOT Medicin e (ADULT)] Future Scheduled BMI FOLLOW UP PLAN [facility] r [facility] of Test [code = BMI FOLLOW UP Medici ne PLAN] Future Scheduled HEPATITIS C SCREENING [facility] of Test [code = HEPATITIS C Medicine SCREENING] Future Scheduled FALL SCREEN [code = [facility] or [place] of Test FALL SCREEN] Medicine Future Scheduled PNEUMOVAX >=65 [facility] Co llege of Test (PPSV23) [code = Medicine PNEUMOVAX >=65 (PPSV23)] Future Scheduled FLU VACCINE > 6 [facility] C ollege of Test MONTHS [code = FLU Medicine VACCINE > 6 MONTHS] Future Scheduled COLON CANCER [facility] ege of Test SCREENING: Medicine COLONOSCOPY [code = COLON CANCER SCREENING: COLONOSCOPY] Future Scheduled MAMMOGRAM ANNUAL [employer] of Test [code = MAMMOGRAM Medicine ANNUAL] Future Scheduled MEDICARE AWV [code = [facility] of Test MEDICARE AWV] Medicine Future Scheduled TETANUS SHOT (ADULT) [facility] of Test [code = TETANUS SHOT Medicin e (ADULT)] Future Scheduled BMI FOLLOW UP PLAN [facility] of Test [code = BMI FOLLOW UP Medici ne PLAN] Future Scheduled HEPATITIS C SCREENING [facility] Test [code = HEPATITIS C Medicine SCREENING] Future Scheduled FALL SCREEN [code = [facility] or College of Test FALL SCREEN] Medicine Future Scheduled PNEUMOVAX >=65 [facility] Co llege of Test (PPSV23) [code = Medicine PNEUMOVAX >=65 (PPSV23)] Future Scheduled FLU VACCINE > 6 [facility] ollege of Test MONTHS [code = FLU Medicine VACCINE > 6 MONTHS] Future Sched[facility]: Medicine COLONOSCOPY [code = COLON CANCER SCREENING: COLONOSCOPY] Future Scheduled MAMMOGRAM ANNUAL [facility] Test [code = MAMMOGRAM Medicine ANNUAL] Future Scheduled MEDICARE AWV [code = [facility] of Test MEDICARE AWV] Medicine Future Scheduled TETANUS SHOT (ADULT) [facility] of Test [code = TETANUS SHOT Medicin e (ADULT)] Future Scheduled BMI FOLLOW UP PLAN [facility] of Test [code = BMI FOLLOW UP Medici ne PLAN] Future Scheduled HEPATITIS C SCREENING [facility] Test [code = HEPATITIS C Medicine SCREENING] Future Scheduled FALL SCREEN [code = [facility] or College of Test FALL SCREEN] Medicine Future Scheduled PNEUMOVAX >=65 [facility] Co llege of Test (PPSV23) [code = Medicine PNEUMOVAX >=65 (PPSV23)] Future Scheduled FLU VACCINE > 6 [facility] C ollege of Test MONTHS [code = FLU Medicine VACCINE > 6 MONTHS] Future Scheduled COVID-19 VACCINE (1) [facility] Test [code = COVID-19 VACCINE (1)] Future Scheduled BREAST CANCER [facility] Test SCREENING [code = BREAST CANCER SCREENING] Future Scheduled COLONOSCOPY SCREENING [facility] Test [code = COLONOSCOPY SCREENING] Future Scheduled SHINGLES VACCINES [facility] Test (#1) [code = SHINGLES VACCINES (#1)] Future Scheduled 65+ [facility]OCOCCAL [facility] Test VACCINE (1 of 1 - PPSV23) [code = 65+ PNEUMOCOCCAL VACCINE (1 of 1 - PPSV23)] Future Scheduled INFLUENZA VACCINE [facility] Test [code = INFLUENZA VACCINE] Encounters Start End Encounter Admission Attending Care Care Encounter Source Date/Time Date/Time Type Type Clinicians Facility Department ID 2022-09-30 2022-09-30 Outpatient GC_[facility]_ PRIV PRIV [id number] [facility] 00:00:00 00:00:00 Amando [id number] Medic al 2022-09-29 2022-09-29 Outpatient GC_[facility]OM[facility]_ PRIV PRIV [id number] [facility] 00:00:00 00:00:00 Amando [id number] Medic al 2022-09-14 2022-09-14 [facility] [id number] [facility] 00:00:00 00:00:00 [facility] Medic al IMTIAZ Singh_ : [address], [place] [address] , Ph. 2022-09-13 2022-09-13 Outpatient GC_[facility]AOM[facility]_ PRIV PRIV [id number] [facility] 00:00:00 00:00:00 Amando [id number] Medic al 2022-08-19 2022-08-19 Outpatient GC_[facility]OM[facility]_ PRIV PRIV [id number] [facility] 00:00:00 00:00:00 Amando [id number] Medic al 2020-12-25 2020-12-25 Outpatient [facility] [id number] Univers 09:40:00 09:40:00 [id number] ity [facility] 2019-08-05 2019-08-05 Office SHAYAN Hassan [id number] 12:51:09 13:32:29 Visit Yasmin AMBULATOR [id number] Y [id number] [id number] 800 2019-08-05 2019-08-05 Office SHAYAN Hassan [id number] [place] [address] 12:51:09 13:32:29 Visit Yasmin AMBULATOR [id number] College Y 0.2.7.2.686 of [id number] [facility] 800 e 2019-07-02 2019-07-02 Office SHAYAN Hassan [id number] 10:30:43 11:41:19 Visit Yasmin AMBULATOR [id number] Y [id number] [id number] 800 2019-07-02 2019-07-02 Office SHAYAN Hassan [id number] [facility] 10:30:43 11:41:19 Visit Yasmin AMBULATOR [id number] College Y 0.2.7.2.686 of [id number] [facility] 800 e 2019-06-17 2019-06-17 Office SHAYAN Hassan [id number] 12:47:15 13:25:21 Visit Yasmin AMBULATOR [id number] Y [id number] [id number] 800 2019-06-17 2019-06-17 Office SHAYAN Hassan [id number] [facility] 12:47:15 13:25:21 Visit Yasmin AMBULATOR [id number] College Y [id number] of [id number] [facility] 800 e Results Test Description Test Time Test Comments Results Result Comments Source Hemoglobin.gastrointestinal.lower [Presence] in Stool by 11-09-12 00:00:00 Immunoassay Test Item Value Reference Range Interpretation Comme nts occult bld, immunochem (test code = occult bld, immunochem) negativ e negative [facility] MedicalFL, ESOPH, SWALLOW FUNCTION, WITH CINE OR [id number] 11:13:00 Reason for Exam:->[id number] REPORT Modified barium swallow exam with speech pathology [...] MDReport Verified Date/Time: 03/13/2019 11:13:50 Reading Location: [address] Radiology Reading Room
--- NOTE | 2022-10-08 19:18 | ER ---
Nurse's Notes [facility] Name: Beryl Shah Age: 72 yrs Sex: Female : 1950 Arrival Date: 10/08/2022 Time: 17:39 Bed Waiting Private MD: Diagnosis: Presentation: 10/08 19:16 Chief complaint: Called to triage, no response. kb3 ED Course: 17:39 Patient arrived in ED. as Administered Medications: No medications were administered Outcome: 19:17 Patient left the ED. kb3 Signatures: Catrina Pacheco Kelly, RN RN kb3
== END 2022-10-08 19:17 | disposition left against medical advice (07) ==
LOC: ER 17:36
DX: Z53.21 Procedure and treatment not carried out due to patient leaving prior to being seen by health care provider (principal)
CPT/HCPCS: 99281

== ENCOUNTER 2022-10-28 11:12 | Emergency (ER) | payer OTHER ==
--- OUTSIDE RECORDS SUMMARY | 2022-10-28 11:16 | XMS REPORT | Continuity of Care Document ---
:1950 Author Organization [facility] t Address [address] [place] [address] Care Team Providers Name Role Phone No MD, Pcp [facility] Primary Care Physician Unavailable Jyotsna_Marva Attending Clinician Unavailable Mo HAZEL, Yasmin Attending Clinician MALORIE_RAFI_Francisco_Marva Admitting Clinician Unavailable Payers Payer Name Policy Type Policy Number Effective Date Expiration Date Kyaw BROWN (MEDICARE [id number] REPLACEMENT PPO) Problems Condition Condition Condition Status Onset Resolution Last Treating Co mments Source Name Details Category Date Date Treatment Clinician Date Pharyngoes Pharyngoes Disease Active [facility] 12 [facility] [employer] dysphagia dysphagia 00:00: of 00 Medicin e Hoarse Hoarse Disease Active [facility] 4-12 College 00:00: of 00 Medicin e Muscle Muscle Disease Active [facility] tension tension [address] [place] dysphonia dysphonia 00:00: of 00 Medicin e Throat Throat Disease Active [facility] pain pain [address] [place] 00:00: of 00 Medicin e GERD GERD Disease Active 2016-10 Methodi (gastroeso (gastroeso 2-27 st phageal phageal 00:00: Hospita reflux reflux 00 l disease) disease) Herpesviru Herpesviru Problem Active 2016-10 P pau s s 0-23 Medical infection Infection 00:00: 00 Degenerati [...] Date Date Clinician Codeine Propensi Active Rash [facility] ty to 12 [place] adverse 00:00: of reaction 00 Medicin s to e drug Epinephr Propensi Active [facility] ine ty to 02-08 [place] adverse 00:00: of reaction 00 Medicin s to e drug Other Propensi Active Rash steroids [facility] ty to 02-08 [place] adverse 00:00: of reaction 00 Medicin s e Penicill Propensi Active Rash [facility] ins ty to 02-08 [place] adverse 00:00: of reaction 00 Medicin s to e drug Codeine Propensi Active Itching Method i ty to 04-27 adverse 00:00: Hospita reaction 00 l s to drug Other Propensi Active Rash steroid [facility] ty to 04-27 adverse 00:00: Hospita reaction 00 l s Penicill Propensi Active Rash Method i ins ty to 04-27 adverse 00:00: Hospita reaction 00 l s to drug Penicill Propensi Active Rash Method i ins ty to 04-27 adverse 00:00: Hospita reaction 00 l s to drug CODEINE DRUG Active [facility] INGREDI 04-27 it[facility] [place] [facility] PENICILL Drug Active Rash [facility] INS Class 04-27 ity of 00:00: [place] [facility] Codeine Allergy Active [facility] Medical substanc e Penicill Allergy Active [facility] in g to Medical substanc e Family History Family Member Diagnosis Comments Start Date Stop Date Source Natural father Cancer [facility] Natural mother Diabetes [facility] Natural mother Heart disease [facility] Social History Social Habit Start Date Stop Date Quantity Comments Source Alcohol intake 2017-10-26 2017-10-26 Current non-drinker M ethodist 00:00:00 00:00:00 of [facility] (finding) Alcohol Comment 2017-10-25 2017-10-25 Drinks wine Methodis t 00:00:00 00:00:00 [facility] Tobacco use and 2017-10-25 2017-10-25 Smokeless tobacco [facility] exposure 00:00:00 00:00:00 non-user Hospital Sex Assigned At [birth year] [employer] 00:00:00 00:00:00 Hospital Smoking Status Start Date Stop Date Source Never Smoker [facility] Never smoker [facility] o f Medicine Medications Ordered Filled Start [...] EVERY MOUTH DAY DAY EVERY DAY LATANOPROST Yes Apply to [facility] 4-12 eye daily. College 20:06: of 16 Medicin e VALACYCLOVI Yes Take by [facility] R HCL OR 4-12 mouth College 20:06: daily. of 16 Medicin e Multiple 2019-0 Yes Take by [facility] Vitamins-Mi 4-12 mouth. Colleg e nerals 20:06: of (ICA 16 Medicin AREDS 2 OR) e Cyanocobala 2019-0 Yes Take by [facility] (B-12 4-12 mouth. College OR) 20:06: of 16 Medicin e MAGNESIUM 2019-0 Yes Take by [facility] OR 4-12 mouth. College 20:06: of 16 Medicin e Psyllium 2019-0 Yes Take by [facility] (METAMUCIL 4-12 mouth. College OR) 20:06: of 16 Medicin e Flaxseed, 2019-0 Yes Take by [facility] Linseed, 4-12 mouth. College (FLAXSEED 20:06: of OIL OR) 16 Medicin e Probiotic 2019-0 Yes Take by [facility] Product 4-12 mouth. [place] (PROBIOTIC 20:06: of OR) 16 Medicin e LATANOPROST 2019-0 Yes Apply to [facility] 4-12 eye daily. College 20:06: of 16 Medicin e VALACYCLOVI 2019-0 Yes Take by [facility] R HCL OR 4-12 mouth College 20:06: daily. of 16 Medicin e Multiple 2019-0 Yes Take by [facility] Vitamins-Mi 4-12 mouth. Colleg e nerals 20:06: of (ICA 16 Medicin AREDS 2 OR) e Cyanocobala 2019-0 Yes Take by [facility] min (B-12 4-12 mouth. College OR) 20:06: of 16 Medicin e MAGNESIUM 2019-0 Yes Take by [facility] OR 4-12 mouth. College 20:06: of 16 Medicin e Psyllium 2019-0 Yes Take by [facility] (METAMUCIL 4-12 mouth. College OR) 20:06: of 16 Medicin e Flaxseed, 2019-0 Yes Take by [facility] Linseed, 4-12 mouth. College (FLAXSEED 20:06: of OIL OR) 16 Medicin e Probiotic 2019-0 Yes Take by [facility] Product 4-12 mouth. [place] (PROBIOTIC 20:06: of OR) 16 Medicin e LATANOPROST 2019-0 Yes Apply to [facility] OP 4-12 eye daily. College 20:06: of 16 Medicin e VALACYCLOVI 2019-0 Yes Take by [facility] R HCL OR 4-12 mouth [place] 20:06: daily. of 16 Medicin e Multiple 2019-0 Yes Take by [facility] Vitamins-Mi 4-12 mouth. Colleg e nerals 20:06: of (ICAPS 16 Medicin AREDS 2 OR) e Cyanocobala 2018-0 Yes Take by [facility] min (B-12 4-12 mouth. [place] OR) 20:06: of 16 Medicin e MAGNESIUM 2019-0 Yes Take by [facility] OR 4-12 mouth. [place] 20:06: of 16 Medicin e Psyllium 2018-0 Yes Take by [facility] (METAMUCIL 4-12 mouth. [place] OR) 20:06: of 16 Medicin e Flaxseed, 2019-0 Yes Take by [facility] Linseed, 4-12 mouth. [place] (FLAXSEED 20:06: of OIL OR) 16 Medicin e Probiotic 2018-0 Yes Take by [facility] r Product 4-12 mouth. [place] (PROBIOTIC 20:06: of OR) 16 Medicin e dorzolamide 2018- Yes Place into [facility] (TRUSOPT) 2 3-01 both eyes Col lege % 00:00: two times of ophthalmic 00 daily. Medicin solution e dorzolamide 2019-[address] [facility] (TRUSOPT) 2 3-01 both eyes Col lege % 00:00: two times of ophthalmic 00 daily. Medicin solution e dorzolamide 2018-[address] [facility] (TRUSOPT) 2 3-01 both eyes Col lege % 00:00: two times of ophthalmic 00 daily. Medicin solution e RESTASIS Yes INSTILL 1 [facility] 0.05 % 1-16 DROP INTO [place] ophthalmic 00:00: BOTH EYES of emulsion 00 TWICE A Medicin DAY e RESTASIS Yes INSTILL 1 [facility] 0.05 % 1-16 DROP INTO [place] ophthalmic 00:00: BOTH EYES of emulsion 00 TWICE A Medicin DAY e RESTASIS Yes INSTILL 1 [facility] 0.05 % 1-16 DROP INTO [place] ophthalmic 00:00: BOTH EYES of emulsion 00 TWICE A Medicin DAY e cycloSPORIN 2016-10 Yes Apply to [facility] (RESTASIS 2-[address] MULTIDOSE) 19:55: Hospita 0.05 % 02 l drops cycloSPORIN 2016-10 Yes Apply to [facility] (RESTASIS 2-[address] MULTIDOSE) 13:55: Hospita 0.05 % 02 l drops cycloSPORIN 2016-10 Yes Apply to [facility] [...] Source Name Name influenza, influenza, 2018-08-02 Completed [facility] unspecified unspecified 00:00:00 formulation formulation pneumococcal pneumococcal 2017-07-30 Completed [facility] conjugate PCV 13 conjugate PCV 13 00:00:00 pneumococcal pneumococcal 2016-08-08 Completed [facility] conjugate PCV 13 conjugate PCV 13 00:00:00 Procedures Procedure Date / Time Performed Performing Clinician Sourc e MAMMO, screening, bilateral 2022-09-14 00:00:00 [facility] BONE DENSITY MEASUREMENT 2022-09-14 00:00:00 [facility] USING DEDICATED X RAY MACHINE Inguinal Hernia 2017-09-29 00:00:00 [facility] Back / Spine Surgery 2015-07-30 00:00:00 [facility] Breast Surgery - Lumpectomy 2001-10-30 00:00:00 [facility] Cholecystectomy 1994-10-30 00:00:00 [facility] (Gallbladder) Back / Spine Surgery 1968-10-30 00:00:00 [facility] Tonsillectomy 1967-10-30 00:00:00 [facility] Plan of Care Planned Activity Planned Date Details Comments Source Future Scheduled 2022-10-12 COVID-19 VACCINE (#1) [facility] Test 14:03:27 [code = COVID-19 VACCINE (#1)] Future Scheduled 2022-10-12 BREAST CANCER [facility] Test 14:03:27 SCREENING [code = BREAST CANCER SCREENING] Future Scheduled 2022-10-12 COLONOSCOPY SCREENING Me [facility] Test 14:03:27 [code = COLONOSCOPY SCREENING] Future Scheduled 2022-10-12 SHINGLES VACCINES (1 [facility] Test 14:03:27 of 2) [code = SHINGLES VACCINES (1 of 2)] Future Scheduled 2022-10-12 65+ [facility]OCOCCAL [facility] Test 14:03:27 VACCINE (1 - PCV) [code = 65+ PNEUMOCOCCAL VACCINE (1 - PCV)] Future Scheduled 2022-10-12 INFLUENZA VACCINE [facility] Test 14:03:27 [code = INFLUENZA VACCINE] Diagnostic Test 2022-09-14 Mucor racemosus IgE [facility] Pending 00:00:00 Ab [Units/volume] in Serum [code = 6182-0] Diagnostic Test 2022-09-14 [place] IgE Ab [facility] Pending 00:00:00 [Units/volume] in Serum [code = 6195-2] Future Scheduled 2022-08-31 HEPATITIS B VACCINES Met [facility] Test 16:36:10 (1 of 3 - 3-dose series) [code = HEPATITIS B VACCINES (1 of 3 - 3-dose series)] Future Scheduled 2022-08-31 COVID-19 VACCINE (#1) [facility] Test 16:36:10 [code = COVID-19 VACCINE (#1)] Future Scheduled 2022-08-31 BREAST CANCER [facility] Test 16:36:10 SCREENING [code = BREAST CANCER SCREENING] Future Scheduled 2022-08-31 COLONOSCOPY SCREENING [facility] Test 16:36:10 [code = COLONOSCOPY SCREENING] Future Scheduled 2022-08-31 SHINGLES VACCINES (1 [facility] Test 16:36:10 of 2) [code = SHINGLES VACCINES (1 of 2)] Future Scheduled 2022-08-31 65+ P[facility]OCOCCAL [facility] Test 16:36:10 VACCINE (1 - PCV) [code = 65+ PNEUMOCOCCAL VACCINE (1 - PCV)] Future Scheduled 2022-08-31 INFLUENZA VACCINE [facility] Test 16:36:10 [code = INFLUENZA VACCINE] Future Scheduled 2020-06-[address] [facility] Test 00:00:00 (#1) [code = Medical Center [...] Michelle es Test 00:00:00 malignant neoplasm of [facility] breast (procedure) [code = 758175331] Future Scheduled [address] [facility] Test 00:00:00 malignant neoplasm of [facility] colon (procedure) [code = 216259845] Future Scheduled COLON CANCER [facility] ege of Test SCREENING: Medicine COLONOSCOPY [code = COLON CANCER SCREENING: COLONOSCOPY] Future Scheduled MAMMOGRAM ANNUAL [facility] of Test [code = MAMMOGRAM Medicine ANNUAL] Future Scheduled MEDICARE AWV [code = [facility] of Test MEDICARE AWV] Medicine Future Scheduled TETANUS SHOT (ADULT) [facility] College of Test [code = TETANUS SHOT Medicin e (ADULT)] Future Scheduled BMI FOLLOW UP PLAN [facility] College of Test [code = BMI FOLLOW UP Medici ne PLAN] Future Scheduled HEPATITIS C SCREENING [facility] of Test [code = HEPATITIS C Medicine SCREENING] Future Scheduled FALL SCREEN [code = [facility] College of Test FALL SCREEN] Medicine Future Scheduled PNEUMOVAX >=65 [facility] Co llege of Test (PPSV23) [code = Medicine PNEUMOVAX >=65 (PPSV23)] Future Scheduled FLU VACCINE > 6 [facility] C ollege of Test MONTHS [code = FLU Medicine VACCINE > 6 MONTHS] Future Scheduled COLON CANCER [facility] Jovani ege of Test SCREENING: Medicine COLONOSCOPY [code = COLON CANCER SCREENING: COLONOSCOPY] Future Scheduled MAMMOGRAM ANNUAL [facility] of Test [code = MAMMOGRAM Medicine ANNUAL] Future Scheduled MEDICARE AWV [code = [facility] of Test MEDICARE AWV] Medicine Future Scheduled TETANUS SHOT (ADULT) [facility] College of Test [code = TETANUS SHOT Medicin e (ADULT)] Future Scheduled BMI FOLLOW UP PLAN [facility] r College of Test [code = BMI FOLLOW UP Medici ne PLAN] Future Scheduled HEPATITIS C SCREENING [facility] of Test [code = HEPATITIS C Medicine SCREENING] Future Scheduled FALL SCREEN [code = [facility] of Test FALL SCREEN] Medicine Future Scheduled PNEUMOVAX >=65 [facility] Co llege of Test (PPSV23) [code = Medicine PNEUMOVAX >=65 (PPSV23)] Future Scheduled FLU VACCINE > 6 [facility] C ollege of Test MONTHS [code = FLU Medicine VACCINE > 6 MONTHS] Future Scheduled COLON CANCER [facility] Jovani ege of Test SCREENING: Medicine COLONOSCOPY [code = COLON CANCER SCREENING: COLONOSCOPY] Future Scheduled MAMMOGRAM ANNUAL [facility] of Test [code = MAMMOGRAM Medicine ANNUAL] Future Scheduled MEDICARE AWV [code = [facility] of Test MEDICARE AWV] Medicine Future Scheduled TETANUS SHOT (ADULT) [facility] of Test [code = TETANUS SHOT Medicin e (ADULT)] Future Scheduled BMI FOLLOW UP PLAN [facility] of Test [code = BMI FOLLOW UP Medici ne PLAN] Future Scheduled HEPATITIS C SCREENING [facility] of Test [code = HEPATITIS C Medicine SCREENING] Future Scheduled FALL SCREEN [code = [facility] of Test FALL SCREEN] Medicine Future Scheduled PNEUMOVAX >=65 [facility] Co llege of Test (PPSV23) [code = Medicine PNEUMOVAX >=65 (PPSV23)] Future Scheduled FLU VACCINE > 6 [facility] C ollege of Test MONTHS [code = FLU Medicine VACCINE > 6 MONTHS] Future Scheduled COVID-19 VACCINE (1) [facility] Test [code = COVID-19 VACCINE (1)] Future Scheduled BREAST CANCER [facility] Test SCREENING [code = BREAST CANCER SCREENING] Future Scheduled COLONOSCOPY SCREENING [facility] Test [code = COLONOSCOPY SCREENING] Future [...] Clinicians Facility Department ID 2022-09-30 2022-09-30 Outpatient _SWHAOM_ PRIV PRIV [id number] [facility] 00:00:00 00:00:00 Amando [id number] Medic al 2022-09-29 2022-09-29 Outpatient GC_SWHAOMC_ PRIV PRIV 501 [id number] [facility] 00:00:00 00:00:00 Amando [id number] Medic al 2022-09-14 2022-09-14 Ross [facility] [id number] [facility] 00:00:00 00:00:00 [facility] Medic al MALORIE Singh_RAFI_ : [address], [place] [address] , Ph. 2022-09-13 2022-09-13 Outpatient GC_SWHAOMC_ PRIV PRIV 501 [id number] [facility] 00:00:00 00:00:00 [facility] [id number] Medic al 2022-08-19 2022-08-19 Outpatient GC_SWHAOMC_ PRIV PRIV 501 [id number] [facility] 00:00:00 00:00:00 [facility] [id number] Medic al 2020-12-25 2020-12-25 Outpatient [facility] [id number] Univers 09:40:00 09:40:00 [id number] [facility] 2019-08-05 2019-08-05 Office SHAYAN Hassan [id number] [place] [address] 12:51:09 13:32:29 Visit Yasmin AMBULATOR [id number] College Y [id number] of [id number] [facility] 800 e 2019-08-05 2019-08-05 Office SHAYAN Hassan [id number] 12:51:09 13:32:29 Visit Yasmin AMBULATOR [id number] Y [id number] [id number] 800 2019-07-02 2019-07-02 Office SHAYAN Hassan [id number] 10:30:43 11:41:19 Visit Yasmin AMBULATOR [id number] Y 0.2.7.2.686 [id number] 800 2019-07-02 2019-07-02 Office SHAYAN Hassan [id number] [place] [address] 10:30:43 11:41:19 Visit Yasmin AMBULATOR [id number] College Y [id number] of [id number] [facility] 800 e 2019-06-17 2019-06-17 Office SHAYAN Hassan [id number] 12:47:15 13:25:21 Visit Yasmin AMBULATOR [id number] Y [id number] [id number] 800 2019-06-17 2019-06-17 Office SHAYAN Hassan [id number] 69 [facility] 12:47:15 13:25:21 Visit Yasmin AMBULATOR [id number] College Y [id number] of [id number] [facility] 800 e Results Test Description Test Time Test Comments Results Result Comments Source Hemoglobin.gastrointestinal.lower [Presence] in Stool by 202 11-09-12 00:00:00 Immunoassay Test Item Value Reference Range Interpretation Comme nts occult bld, immunochem (test code = occult bld, immunochem) negativ e negative [facility], ESOPH, SWALLOW FUNCTION, WITH CINE OR [id number] 11:13:00 Reason for Exam:->[id number] REPORT Modified barium [...] MDReport Verified Date/Time: 03/13/2019 11:13:50 Reading Location: [address] Radiology Reading Room
[2022-10-28] MEDS ORDERED: MORPHINE 4 MG/ML SYR ONE (11:43)
[2022-10-28] MEDS ORDERED: ONDANSETRON 4 MG/2 ML VIAL ONE (11:43)
[2022-10-28] MEDS ORDERED: ONDANSETRON 4 MG (ODT) TAB ONE ×2 (11:44→14:04)
--- NOTE | 2022-10-28 12:45 | RAD REPORT ---
EXAM DESCRIPTION: RAD - Humerus Right - 10/28/2022 12:32 pm CLINICAL HISTORY: PAINafter fall COMPARISON: No comparisons FINDINGS: No fracture is identified. There is no dislocation or periosteal reaction noted. AC joint degenerative changes present with inferiorly directed spurring. Spurring is seen in the distal humeru s. No suspicious soft tissue finding. Ribcage is grossly intact but not fully assessed. IMPRESSION: No fracture or acute right humerus finding identified.
--- NOTE | 2022-10-28 12:45 | RAD REPORT ---
EXAM DESCRIPTION: RAD - Forearm Right - 10/28/2022 12:32 pm CLINICAL HISTORY: PAINafter fall COMPARISON: No comparisons FINDINGS: No fracture is identified. There is no dislocation or periosteal reaction noted. No foreign body or other soft tissue abnormality. IMPRESSION: Negative right forearm examination for acute or suspicious finding.
--- NOTE | 2022-10-28 13:57 | RAD REPORT ---
EXAM DESCRIPTION: CT - Head C Spine Cap Wo Con - 10/28/2022 1:28 pm CLINICAL HISTORY: Head and neck injury with chest and abdominal pain status post fall TECHNIQUE: Computed axial tomography of head, neck, chest, abdomen and pelvis obtained. IV and oral contrast not requested. Coronal and sagittal reconstruction performed. All CT scans are performed using dose optimization technique as appropriate and may include automated exposure control or mA/KV adjustment according to patient size. COMPARISON: February 2022 FINDINGS: An intracranial bleed is not seen. The ventricles are normal in caliber. An extra-axial fluid collection is not noted. . Fluid within the sinuses/mastoids is not seen. A cervical fracture is not seen. No dislocation is noted. Anterior fusion mid and distal cervical spi ne The evaluation of mediastinum, otis, vessels, solid organs and bowel are limited secondary to the lac k of contrast administration. A mediastinal hematoma is not noted. A pleural effusion is not seen. A lung contusion is not present. The liver,spleen, pancreas, adrenals,kidneys and bladder do not demonstrate an acute traumatic injury No cecal mass. Fusion sacroiliac joints IMPRESSION: No acute intracranial abnormality is seen. A cervical fracture is not visualized. If the patient continues have symptoms to suggest intracrania l/spinal cord pathology MRI be recommended No acute traumatic abnormality involving the chest/abdomen/pelvis.
--- NOTE | 2022-10-28 14:20 | ER ---
Nurse's Notes [facility] Name: Beryl Shah Age: 72 yrs Sex: Female : 1950 Arrival Date: 10/28/2022 Time: 11:13 Bed 11 Private MD: Ama Concepcion C Diagnosis: Fall on same level from slipping, tripping and stumbling without subsequent striking against object;Pain in right arm;Right rib pain Presentation: 10/28 11:48 Chief complaint: Patient states: right arm pain s/p trip and fall last night. Care iw prior to arrival: None. 11:48 Acuity: ANDREA 3 iw 11:48 Method Of Arrival: Ambulatory iw 11:49 Coronavirus screen: At this time, the client does not indicate any symptoms associated iw with coronavirus-19. Ebola Screen: Patient negative for fever greater than or equal to 101.5 degrees Fahrenheit, and additional compatible Ebola Virus Disease symptoms Patient denies exposure to infectious person. Patient denies travel to an Ebola-affected area in the 21 days before illness onset. No symptoms or risks identified at this time. Initial Sepsis Screen: Does the patient meet any 2 criteria? No. Patient's initial sepsis screen is negative. Does the patient have a suspected source of infection? No. Patient's initial sepsis screen is negative. Risk Assessment: Do you want to hurt yourself or someone else? Patient reports no desire to harm self or others. Onset of symptoms was October 27, 2022. Historical: - Allergies: 11:50 Adhesives; iw 11:50 Codeine; iw 11:50 PENICILLINS; iw 11:50 steroids; iw - Home Meds: 11:50 methocarbamol 500 mg Oral tab for Muscle Spasm [Active]; Valtrex 500 mg Oral tab iw [Active]; - PMHx: 11:50 Gastric Reflux; HERPES; osteoarthritis; TIA; iw - PSHx: 11:50 Cholecystectomy; Appendectomy; partial hysterectomy; iw Vital Signs: 11:49 BP 139 / 104; Pulse 88; Resp 20; Temp 98.7; Pulse Ox 98% on R/A; Weight 102.06 kg; iw Height 5 ft. 0 in. (152.40 cm); 11:49 Body Mass Index 43.94 (102.06 kg, 152.40 cm) iw ED Course: 11:13 Patient arrived in ED. mr 11:13 Ama Concepcion MD is Private Physician. mr 11:40 Merline Hogan, RN is Primary Nurse. iw 11:40 Abril Reyn[facility]-C [facility]. kb 11:40 Rich Hyman MD is Attending Physician. kb 11:49 Triage completed. iw 11:50 Arm band placed on. iw 12:34 Humerus Right XRAY In Process Unspecified. EDMS 12:34 Forearm Right XRAY In Process Unspecified. EDMS 13:30 CT Traumagram (Head C Spine CAP wo con) In Process Unspecified. EDMS 14:08 Chest Single View XRAY In Process Unspecified. EDMS Administered Medications: 11:48 Drug: morphine 4 mg Route: IM; Site: left deltoid; iw 11:48 Drug: Zofran (Ondansetron) 4 mg Route: PO; iw 14:23 Drug: Zofran (Ondansetron) 4 mg Route: PO; iw Outcome: 14:19 Discharge ordered by MD. kb 15:36 Patient left the ED. iw Signatures: Dispatcher [employer] EDMS Abril Reyna FNP-C FNP-Robert Greg Ne pearson Merline Hogan, RN RN iw
--- NOTE | 2022-10-28 14:20 | EDPHYS ---
Physician Documentation [facility] Name: Beryl Shah Age: 72 yrs Sex: Female : 1950 Arrival Date: 10/28/2022 Time: 11:13 Bed 11 Private MD: Ama Concepcion C ED Physician Rich Hyman HPI: 10/28 15:41 This 72 yrs old Female presents to ER via Ambulatory with complaints of Fall Injury. kb 15:41 Details of fall: The patient fell from an upright position, while walking. Onset: The kb symptoms/episode began/occurred yesterday. Associated injuries: The patient sustained right arm, decreased range of motion, painful injury. Severity of symptoms: At their worst the symptoms were moderate, in the emergency department the symptoms are unchanged. The patient has not experienced similar symptoms in the past. The patient has not recently seen a physician. Pt reports she tripped last night falling to right side. Reports pain in right arm and shoulder with decreased rom due to pain. Historical: - Allergies: 11:50 Adhesives; iw 11:50 Codeine; iw 11:50 PENICILLINS; iw 11:50 steroids; iw - Home Meds: 11:50 methocarbamol 500 mg Oral tab for Muscle Spasm [Active]; Valtrex 500 mg Oral tab iw [Active]; - PMHx: 11:50 Gastric Reflux; HERPES; osteoarthritis; TIA; iw - PSHx: 11:50 Cholecystectomy; Appendectomy; partial hysterectomy; iw ROS: 15:40 Constitutional: Negative for fever, chills, and weight loss. kb 15:40 Cardiovascular: Positive for chest pain, of the right lateral posterior chest and right lateral anterior chest, right lateral lower rib pain. 15:40 MS/extremity: Positive for pain, of the right arm. 15:40 MS/extremity: Positive for pain, of the right hip. 15:40 All other systems are negative. Exam: 15:41 Constitutional: This is a well developed, well nourished patient who is awake, alert, kb and in no acute distress. Head/Face: Normocephalic, atraumatic. ENT: Moist Mucous membranes Cardiovascular: Regular rate and rhythm with a normal S1 and S2. No gallops, murmurs, or rubs. No pulse deficits. Respiratory: Respirations even and unlabored. No increased work of breathing. Talking in full sentences Abdomen/GI: Soft, non-tender. No distention Skin: Warm, dry with normal turgor. Normal color. Neuro: Awake and alert, GCS 15, oriented to person, place, time, and situation. Moves all extremities. Normal gait. Psych: Awake, alert, with orientation to person, place and time. Behavior, mood, and affect are within normal limits. 15:41 Musculoskeletal/extremity: Extremities: grossly normal except: noted in the right arm: decreased ROM, pain, tenderness, ROM: limited active range of motion due to pain, in the right arm, Circulation is intact in all extremities. Sensation intact. Weight bearing: able to fully bear weight. Vital Signs: 11:49 BP 139 / 104; Pulse 88; Resp 20; Temp 98.7; Pulse Ox 98% on R/A; Weight 102.06 kg; iw Height 5 ft. 0 in. (152.40 cm); 11:49 Body Mass Index 43.94 (102.06 kg, 152.40 cm) iw MDM: 11:40 Patient medically screened. kb 13:15 ED course: Pt now reports pain to right lateral lower ribs and right hip upon movement. kb Will order CT scan . 15:40 Data reviewed: vital signs, nurses notes. Data interpreted: Pulse oximetry: on room air kb is 98 %. Interpretation: normal. Counseling: I had a detailed discussion with the patient and/or guardian regarding: the historical points, exam findings, and any diagnostic results supporting the discharge/admit diagnosis, radiology results, the need for outpatient follow up, a family practitioner, to return to the emergency department if symptoms worsen or persist or if there are any questions or concerns that arise at home. 10/28 11:34 Order name: Humerus Right XRAY; Complete Time: 12:47 iw 10/28 11:34 Order name: Forearm Right XRAY; Complete Time: 12:47 iw 10/28 13:09 Order name: Chest Single View XRAY; Complete Time: 14:23 kb 10/28 13:13 Order name: CT Traumagram (Head C Spine CAP wo con); Complete Time: 14:09 kb Administered Medications: 11:48 Drug: morphine 4 mg Route: IM; Site: left deltoid; iw 11:48 Drug: Zofran (Ondansetron) 4 mg Route: PO; iw 14:23 Drug: Zofran (Ondansetron) 4 mg Route: PO; iw Disposition: 16:40 Co-signature as Attending Physician, Rich Hyman MD. rn Disposition Summary: 10/28/22 14:19 Discharge Ordered Location: Home kb Condition: Stable kb Diagnosis - Fall on same level from slipping, tripping and stumbling without subsequent kb striking against object - Pain in right arm kb - Right rib pain kb Followup: kb - With: Emergency Department - When: As needed - Reason: Worsening of condition Followup: kb - With: Private Physician - When: 2 - 3 days - Reason: Recheck today's complaints, Continuance of care, Re-evaluation by your physician Discharge Instructions: - Discharge Summary Sheet kb - Musculoskeletal Pain kb - Fall Prevention in the Home, Adult, Isin-ee-Chod kb Forms: - Medication Reconciliation Form kb - Thank You Letter kb - Antibiotic Education kb - Prescription Opioid Use kb Prescriptions: - Tramadol 50 mg Oral Tablet - take 1 tablet by ORAL route every 8 hours as needed; 12 tablet; Refills: 0, kb Product Selection Permitted Signatures: Dispatcher [employer] Abril Benjamin, MANAGER UNIVERSITY-C MANAGER UNIVERSITY-Merline Hearn, RN RN iw Rich Hyman MD MD rn
--- NOTE | 2022-10-28 14:22 | RAD REPORT ---
EXAM DESCRIPTION: Miesha Single View10/28/2022 2:06 pm CLINICAL HISTORY: Chest pain COMPARISON: November 2021 FINDINGS: No gross right rib fracture seen. The lungs appear clear of acute infiltrate. The heart is normal size IMPRESSION: No acute abnormalities displayed
[2022-10-28 16:06] VITALS: BP 139/104; TEMP 98.7; O2SAT 98
== END 2022-10-28 15:36 | disposition home or self-care (01) ==
LOC: ER 11:12
DX: M79.601 Pain in right arm (principal); R07.81 Pleurodynia; W01.0XXA Fall on same level from slipping, tripping and stumbling without subsequent striking against object, initial encounter; Z88.0 Allergy status to penicillin; Z88.5 Allergy status to narcotic agent; Z88.8 Allergy status to other drugs, medicaments and biological substances; Z91.048 Other nonmedicinal substance allergy status
CPT/HCPCS: 70450; 71250; 72125; 71045; 73090; 73060; 96372; 99283; Q0162 ×2; J2405

== ENCOUNTER 2023-03-02 15:57 | Emergency (ER) | payer OTHER ==
--- OUTSIDE RECORDS SUMMARY | 2023-03-02 16:01 | XMS REPORT | Continuity of Care Document ---
:1950 Author Organization [facility] t Address [address] [place] [address] Care Team Providers Name Role Phone Jamey BARRAZA, Jimmy Solo Primary Care Physician Blanka BARRAZA, Donte Iqbal Attending Clinician GC_RAFI_Francisco_Marva Attending Clinician Unavailable Yasmin Lee Attending Clinician MALORIE_RAFI_Francisco_Marva Admitting Clinician Unavailable Payers Payer Name Policy Type Policy Number Effective Date Expiration Date Kyaw BROWN (MEDICARE [id number] REPLACEMENT PPO) Problems Condition Condition Condition Status Onset Resolution Last Treating Co mments Source Name Details Category Date Date Treatment Clinician Date Pharyngoes Pharyngoes Disease Active [facility] ophageal 02-08 [facility] e dysphagia dysphagia 00:00: of 00 Medicin e Hoarse Hoarse Disease Active [facility] 4-12 College 00:00: of 00 Medicin e Muscle Muscle Disease Active [facility] tension tension 12 [place] dysphonia dysphonia 00:00: of 00 Medicin e Throat Throat Disease Active [facility] pain pain 12 [place] 00:00: of 00 Medicin e GERD GERD Disease Active 2016-10 [facility] (gastroeso (gastroeso 12-26 [facility] phageal phageal 00:00: Hospita reflux reflux 00 l disease) disease) Herpesviru Herpesviru Problem Active 2016-10 P rivia s s 0-23 Medical infection Infection 00:00: [...] Date Clinician Codeine Propensi Active Rash [facility] ty to 12 [place] adverse 00:00: of reaction 00 Medicin s to e drug Epinephr Propensi Active Harley ine ty to 12 [place] adverse 00:00: of reaction 00 Medicin s to e drug Other Propensi Active Rash steroids [facility] ty to 02-08 [place] adverse 00:00: of reaction 00 Medicin s e Penicill Propensi Active Rash Harley ins ty to 02-08 [place] adverse 00:00: of reaction 00 Medicin s to e drug Codeine Propensi Active Itching 2016-0 [facility] i ty to 04-27 st adverse 00:00: Hospita reaction 00 l s to drug Other Propensi Active Rash steroid [facility] ty to 04-27 st adverse 00:00: Hospita reaction 00 l s Penicill Propensi Active Rash [facility] ins ty to 04-27 st adverse 00:00: Hospita reaction 00 l s to drug CODEINE DRUG Active [facility] INGREDI 04-27 ity of 00[facility]: [place] [facility] PENICILL Drug Active Rash [facility] INS Class 04-27 ity of 00:00: [place] 00 [facility] Penicill Propensi Active Rash [facility] ins ty to 04-27 st adverse 00:00: Hospita reaction 00 l s to drug Codeine Allergy Active [facility] to [facility] substanc e Penicill Allergy Active [facility] in g to Medical substanc e Family History Family Member Diagnosis Comments Start Date Stop Date Source Natural father Cancer [facility] Natural mother Diabetes [facility] Natural mother Heart disease [facility] Social History Social Habit Start Date Stop Date Quantity Comments Source Gender identity [facility] Sexual orientation [facility] History of Social 2018-09-11 2018-09-[facility] Hospital Alcohol intake 2017-10-26 2017-10-26 Current non-drinker M ethodist 00:00:00 00:00:00 of alcohol Hospital (finding) Alcohol Comment 2017-10-25 2017-10-25 Drinks wine Methodis t 00:00:00 00:00:00 occasionally Hospital Tobacco use and 2017-10-25 2017-10-25 Smokeless tobacco Me thodist exposure 00:00:00 00:00:00 non-user Hospital Sex Assigned At [birth year] [facility] 00:00:00 00:00:00 Hospital Smoking Status Start Date Stop Date Source Never smoker [facility] o Medicine Medications Ordered Filled Start Stop [...] EVERY MOUTH DAY DAY EVERY DAY LATANOPROST 2018-0 Yes Apply to [facility] OP 4-12 eye daily. College 20:06: of 16 Medicin e VALACYCLOVI 2019-0 Yes Take by [employer] R HCL OR 4-12 mouth College 20:06: daily. of 16 Medicin e Multiple 2019-0 Yes Take by [facility] Vitamins-Mi 4-12 mouth. Colleg e nerals 20:06: of ([facility] 16 Medicin AREDS 2 OR) e Cyanocobala 2019-0 Yes Take by [employer] min (B-12 4-12 mouth. College OR) [...] Take by [facility] Product 4-12 mouth. [place] (PROBIOTIC 20:06: of OR) 16 Medicin e LATANOPROST 2019-0 Yes Apply to [facility] OP 4-12 eye daily. College 20:06: of 16 Medicin e VALACYCLOVI 2019-0 Yes Take by [employer] R HCL OR 4-12 mouth [place] 20:06: daily. of 16 Medicin e Multiple 2018-0 Yes Take by [facility] Vitamins-Mi 4-12 mouth. Colleg e nerals 20:06: of ([facility] 16 Medicin AREDS 2 OR) e Cyanocobala 2019-0 Yes Take by [employer] min (B-12 4-12 mouth. College OR) 20:06: of 16 Medicin e MAGNESIUM 2019-0 Yes Take by [facility] [facility] OR 4-12 mouth. College 20:06: of 16 Medicin e Psyllium 2019-0 Yes Take by [facility] (METAMUCIL 4-12 mouth. College OR) 20:06: of 16 Medicin e Flaxseed, 2019-0 Yes Take by [facility] Linseed, 4-12 mouth. College (FLAXSEED 20:06: of OIL OR) 16 Medicin e Probiotic 2019-0 Yes Take by [facility] Product 4-12 mouth. [place] (PROBIOTIC 20:06: of OR) 16 Medicin e LATANOPROST 2019- Yes Apply to Ba hectoror OP 4-12 eye daily. [place] 20:06: of 16 Medicin e VALACYCLOVI 2019-0 Yes Take by [employer] R HCL OR 4-12 mouth [place] 20:06: daily. of 16 Medicin e Multiple 2019-0 Yes Take by [facility] Vitamins-Mi 4-12 mouth. Colleg e nerals 20:06: of (ICAPS 16 Medicin AREDS 2 OR) e Cyanocobala 2019-0 Yes Take by [employer] min (B-12 4-12 mouth. College OR) 20:06: of 16 Medicin e MAGNESIUM 2019-0 Yes Take by [facility] OR 4-12 mouth. [place] 20:06: of 16 Medicin e Psyllium 2018- Yes Take by [facility] (METAMUCIL 4-12 mouth. College OR) 20:06: of 16 Medicin e Flaxseed, 2019-0 Yes Take by [facility] Linseed, 4-12 mouth. [place] (FLAXSEED 20:06: of OIL OR) 16 Medicin e Probiotic 2018-0 Yes Take by [facility] Product 4-12 mouth. [place] (PROBIOTIC 20:06: of OR) 16 Medicin e dorzolamide 2018- Yes Place into [facility] (TRUSOPT) 2 3-01 both eyes Col lege % 00:00: two times of ophthalmic 00 daily. Medicin solution e dorzolamide 2018- Yes Place into [facility] (TRUSOPT) 2 3-01 both eyes Col lege % 00:00: two times of ophthalmic 00 daily. Medicin solution e dorzolamide 2019-[address] [facility] (TRUSOPT) 2 3-01 both eyes Col lege % 00:00: two times of ophthalmic 00 daily. Medicin solution e RESTASIS Yes INSTILL 1 [facility] 0.05 % 1-16 DROP INTO [place] ophthalmic 00:00: BOTH EYES of emulsion 00 TWICE A Medicin DAY e RESTASIS Yes INSTILL 1 [facility] 0.05 % 1-16 DROP INTO [place] ophthalmic 00:00: BOTH EYES of emulsion 00 TWICE A Medicin DAY e RESTASIS Yes INSTILL 1 [facility] 0.05 % 1-16 DROP INTO [place] ophthalmic 00:00: BOTH EYES of emulsion 00 [...] Sourc e MAMMO, screening, bilateral 2022-09-14 00:00:00 [facility] BONE DENSITY MEASUREMENT 2022-09-14 00:00:00 [facility] Medical USING DEDICATED X RAY MACHINE Inguinal Hernia 2017-09-29 00:00:00 [facility] Back / Spine Surgery 2015-07-30 00:00:00 [facility] Breast Surgery - Lumpectomy 2001-10-30 00:00:00 [facility] Cholecyst[facility] 1994-10-30 00:00:00 [facility] (Gallbladder) Back / Spine Surgery 1968-10-30 00:00:00 [facility] Tonsillectomy 1967-10-30 00:00:00 [facility] Hysterectomy - Total [facility] mickey Appendectomy [facility] Plan of Care Planned Activity Planned Date Details Comments Source Future Scheduled 2023-03-02 COVID-19 VACCINE (#1) [facility] Test 16:00:16 [code = COVID-19 VACCINE (#1)] Future Scheduled 2023-03-02 BREAST CANCER [facility] Test 16:00:16 SCREENING [code = BREAST CANCER SCREENING] Future Scheduled 2023-03-02 COLONOSCOPY SCREENING [facility] Test 16:00:16 [code = COLONOSCOPY SCREENING] Future Scheduled 2023-03-02 SHINGLES VACCINES (1 Met [facility] Test 16:00:16 of 2) [code = SHINGLES VACCINES (1 of 2)] Future Scheduled 2023-03-02 65+ [facility] 16:00:16 VACCINE (1 - PCV) [code = 65+ PNEUMOCOCCAL VACCINE (1 - PCV)] Future Scheduled 2023-03-02 INFLUENZA VACCINE [facility] Test 16:00:16 [code = INFLUENZA VACCINE] Future Scheduled 2022-10-12 COVID-19 VACCINE (#1) [facility] Test 14:03:27 [code = COVID-19 VACCINE (#1)] Future Scheduled 2022-10-12 BREAST CANCER [facility] Test 14:03:27 SCREENING [code = BREAST CANCER SCREENING] Future Scheduled 2022-10-12 COLONOSCOPY SCREENING [facility] Test 14:03:27 [code = COLONOSCOPY SCREENING] Future Scheduled 2022-10-12 SHINGLES VACCINES (1 Met [facility] Test 14:03:27 of 2) [code = SHINGLES VACCINES (1 of 2)] Future Scheduled 2022-10-12 65+ PNEUMOCOCCAL [facility] Test 14:03:27 VACCINE (1 - PCV) [code = 65+ PNEUMOCOCCAL VACCINE (1 - PCV)] Future Scheduled 2022-10-12 INFLUENZA VACCINE [facility] Test 14:03:27 [code = INFLUENZA VACCINE] Diagnostic Test 2022-09-14 Mucor racemosus IgE [facility] Pending 00:00:00 Ab [Units/volume] in Serum [code = 6182-0] Diagnostic Test 2022-09-14 [place] IgE Ab [facility] Pending 00:00:00 [Units/volume] in Serum [code = 6195-2] Future Scheduled 2022-08-31 HEPATITIS B VACCINES Met [facility] Test 16:36:10 (1 of 3 - 3-dose series) [code = HEPATITIS B VACCINES (1 of 3 - 3-dose series)] Future Scheduled 2022-08-31 COVID-19 VACCINE (#1) [facility] Test 16:36:10 [code = COVID-19 VACCINE (#1)] Future Scheduled 2022-08-31 BREAST CANCER [facility] Test 16:36:10 SCREENING [code = BREAST CANCER SCREENING] Future Scheduled 2022-08-31 COLONOSCOPY SCREENING [facility] Test 16:36:10 [code = COLONOSCOPY SCREENING] Future Scheduled 2022-08-31 SHINGLES VACCINES (1 Met [facility] Test 16:36:10 of 2) [code = SHINGLES VACCINES (1 of 2)] Future Scheduled 2022-08-31 65+ PNEUMOCOCCAL [facility] Test 16:36:10 VACCINE (1 - PCV) [code = 65+ PNEUMOCOCCAL VACCINE (1 - PCV)] Future Scheduled 2022-08-31 INFLUENZA VACCINE [facility] Test 16:36:10 [code = INFLUENZA VACCINE] [...] Michelle es Test 00:00:00 malignant neoplasm of [facility] breast (procedure) [code = 509683072] Future Scheduled [address] [facility] es Test 00:00:00 malignant neoplasm of [facility] colon (procedure) [code = 072743061] Future Scheduled COLON CANCER [facility] ege of Test SCREENING: Medicine COLONOSCOPY [code = COLON CANCER SCREENING: COLONOSCOPY] Future Scheduled MAMMOGRAM ANNUAL [facility] of Test [code = MAMMOGRAM Medicine ANNUAL] Future Scheduled MEDICARE AWV [code = [employer] of Test MEDICARE AWV] Medicine Future Scheduled TETANUS SHOT (ADULT) [employer] of Test [code = TETANUS SHOT Medicin e (ADULT)] Future Scheduled BMI FOLLOW UP PLAN [facility] r College of Test [code = BMI FOLLOW UP Medici ne PLAN] Future Scheduled HEPATITIS C SCREENING Ba or [facility] of Test [code = HEPATITIS C Medicine SCREENING] Future Scheduled FALL SCREEN [code = [employer] of Test FALL SCREEN] Medicine Future Scheduled PNEUMOVAX >=65 [facility] Co llege of Test (PPSV23) [code = Medicine PNEUMOVAX >=65 (PPSV23)] Future Scheduled FLU VACCINE > 6 [facility] ollege of Test MONTHS [code = FLU Medicine VACCINE > 6 MONTHS] Future Scheduled COLON CANCER [facility] ege of Test SCREENING: Medicine COLONOSCOPY [code = COLON CANCER SCREENING: COLONOSCOPY] Future Scheduled MAMMOGRAM ANNUAL [facility] College of Test [code = MAMMOGRAM Medicine ANNUAL] Future Scheduled MEDICARE AWV [code = [employer] of Test MEDICARE AWV] Medicine Future Scheduled TETANUS SHOT (ADULT) [employer] of Test [code = TETANUS SHOT Medicin e (ADULT)] Future Scheduled BMI FOLLOW UP PLAN [facility] r College of Test [code = BMI FOLLOW UP Medici ne PLAN] Future Scheduled HEPATITIS C SCREENING [employer] of Test [code = HEPATITIS C Medicine SCREENING] Future Scheduled FALL SCREEN [code = [employer] of Test FALL SCREEN] Medicine Future Scheduled PNEUMOVAX >=65 [facility] Co llege of Test (PPSV23) [code = Medicine PNEUMOVAX >=65 (PPSV23)] Future Scheduled FLU VACCINE > 6 [facility] ollege of Test MONTHS [code = FLU Medicine VACCINE > 6 MONTHS] Future Scheduled COLON CANCER [facility] ege of Test SCREENING: Medicine COLONOSCOPY [code = COLON CANCER SCREENING: COLONOSCOPY] Future Scheduled MAMMOGRAM ANNUAL [facility] of Test [code = MAMMOGRAM Medicine ANNUAL] Future Scheduled MEDICARE AWV [code = [facility] College of Test MEDICARE AWV] Medicine Future Scheduled TETANUS SHOT (ADULT) [facility] Test [code = TETANUS SHOT Medicin e (ADULT)] Future Scheduled BMI FOLLOW UP PLAN [facility] of Test [code = BMI FOLLOW UP Medici ne PLAN] Future Scheduled HEPATITIS C [facility] Test [code = HEPATITIS C Medicine SCREENING] Future Scheduled FALL SCREEN [code = [facility] College of Test FALL SCREEN] Medicine Future Scheduled PNEUMOVAX >=65 [facility] Co llege of Test (PPSV23) [code = Medicine PNEUMOVAX >=65 (PPSV23)] Future Scheduled FLU VACCINE > 6 [facility] C ollege of Test MONTHS [code = FLU Medicine VACCINE > 6 MONTHS] Future Scheduled COVID-19 VACCINE (1) [facility] Test [code = COVID-19 VACCINE (1)] Future Scheduled BREAST CANCER [facility] Test SCREENING [code = BREAST CANCER SCREENING] Future Scheduled COLONOSCOPY SCREENING [facility] Test [code = COLONOSCOPY SCREENING] Future Scheduled [...] Date/Time Type Type Clinicians Facility Department ID 2022-12-20 Outpatient [facility] [id number] Common 12:54:00 [id number] [facility] 2023-01-19 2023-01-19 Travel 1.2.840.1 [id number] [facility] 00:00:00 00:00:[address] 3.430.2.7 0.2.7.3.698 Ho spita .[id number] 084.8 l .8 2023-01-13 2023-01-13 Transcribe Kiera Moscoso.2.840.1 [id number] [facility] 00:00:00 00:00:00 Orders Donte Iqbal 92330.1.[address] 3.430.2.7 Hospit a .[id number] l .8 2022-09-30 2022-09-30 Outpatient GC_[facility]AOM[facility]_ PRIV PRIV 501 [id number] [facility] 00:00:00 00:00:00 Amando [id number] Medic al 2022-09-29 2022-09-29 Outpatient GC_[facility]AOM[facility]_ PRIV PRIV 501 [id number] [facility] 00:00:00 00:00:00 Amando [id number] Medic al 2022-09-14 2022-09-14 Ross PRIV [facility] [id number] [facility] 00:00:00 00:00:00 [facility] - Medic al MALORIE Singh_RAFI_ MD: [address], [place] [address] , Ph. 2022-09-13 2022-09-13 Outpatient GC_SWHAOMC_ PRIV PRIV 501 [id number] [facility] 00:00:00 00:00:00 Amando [id number] Medic al 2022-08-19 2022-08-19 Outpatient GC_SWHAOMC_ PRIV PRIV 501 [id number] [facility] 00:00:00 00:00:00 Amando [id number] Medic al 2020-12-25 2020-12-25 Outpatient [facility] [id number] Univers 09:40:00 09:40:00 [id number] ity [facility] 2019-08-05 2019-08-05 Office SHAYAN Hassan [id number] [facility] 12:51:09 13:32:29 Visit Yasmin AMBULATOR 350.1.13.21 College Y 0.2.7.2.686 of [id number] [facility] 800 e 2019-08-05 2019-08-05 Office SHAYAN Hassan 1.2.840.114 [id number] 12:51:09 13:32:29 Visit Yasmin AMBULATOR 350.1.13.21 Y 0.2.7.2.686 [id number] 800 2019-07-02 2019-07-02 Office SHAYAN Hassan [id number] [facility] 10:30:43 11:41:19 Visit Yasmin AMBULATOR 350.1.13.21 College Y 0.2.7.2.686 of [id number] [facility] 800 e 2019-07-02 2019-07-02 Office SHAYAN Hassan 1.2.840.114 [id number] 10:30:43 11:41:19 Visit Yasmin AMBULATOR 350.1.13.21 Y 0.2.7.2.686 [id number] 800 2019-06-17 2019-06-17 Office SHAYAN Hassan 1.2.840.114 [id number] [facility] 12:47:15 13:25:21 Visit Yasmin AMBULATOR 350.1.13.21 College Y 0.2.7.2.686 of [id number] [facility] 800 e 2019-06-17 2019-06-17 Office SHAYAN Hassan 1.2.840.114 [id number] 12:47:15 13:25:21 Visit Yasmin AMBULATOR 350.1.13.21 Y 0.2.7.2.686 [id number] Results Test Description Test Time Test Comments Results Result Comments Source Hemoglobin.gastrointestinal.lower [Presence] in Stool by 202 11-09-12 00:00:00 Immunoassay Test Item Value Reference Range Interpretation Comme nts occult bld, immunochem (test code = occult bld, immunochem) negativ e negative [facility], ESOPH, SWALLOW FUNCTION, WITH CINE OR [id number] 11:13:00 Reason for Exam:->[id number] REPORT Modified barium [...] MDReport Verified Date/Time: 03/13/2019 11:13:50 Reading Location: [address] Radiology Reading Room
--- NOTE | 2023-03-02 17:04 | RAD REPORT ---
EXAM DESCRIPTION: RAD - Chest Single View - 03/02/2023 4:56 pm CLINICAL HISTORY: CHEST PAIN Chest pain. COMPARISON: Chest Single View dated 10/28/2022; Chest Single View dated 12/14/2021; Chest Single View dated 06/23/2021; Chest Single View dated 03/29/2021 FINDINGS: Portable technique limits examination quality. The lungs are grossly clear. The heart is normal in size. No displaced fractures.Cervical hardware pl ate. IMPRESSION: No acute intrathoracic process suspected.
[2023-03-02 17:48] LABS: Absolute Lymphocytes (CBC) 1.1 K/uL (0.7-4.9); Hematocrit 41.3 % (36.0-45.0); Lymphocytes % 29.1 % (15.3-44.8); MCV 99.6 fL (80-100); MPV 8.1 fL (7.6-11.3); RBC Red Blood Cell Count 4.15 M/uL (3.86-4.86)
[2023-03-02 18:09] LABS: Albumin 3.3 g/dL (3.4-5.0); Bilirubin Direct 0.1 mg/dL (0-0.2); Bilirubin Total 0.3 mg/dL (0.2-1.0); Potassium 3.7 mEq/L (3.5-5.1); Troponin High Sensitivity 4.7 pg/mL (<58.9)
--- NOTE | 2023-03-02 18:38 | RAD REPORT ---
EXAM DESCRIPTION: CT - Chest For Pe Angio - 03/02/2023 6:27 pm CLINICAL HISTORY: Chest pain. CHEST PAIN COMPARISON: <Comparisons> TECHNIQUE: CT angiogram of the pulmonary arteries was performed with MIP. All CT scans are performed using dose optimization technique as appropriate and may include automated exposure control or mA/KV adjustment according to patient size. FINDINGS: No evidence of pulmonary thromboembolism. No acute aortic finding demonstrated. The lungs are clear. No significant pericardial or pleural fluid. No concerning bony finding. Small hiatal hernia. IMPRESSION: No evidence of pulmonary thromboembolism. No acute lung findings.
--- NOTE | 2023-03-02 18:52 | ER ---
Nurse's Notes [facility] Name: Beryl Shah Age: 73 yrs Sex: Female : 1950 Arrival Date: 03/02/2023 Time: 15:57 Bed 3 Private MD: Diagnosis: Chest pain on breathing Presentation: 03/02 16:23 Chief complaint: Patient states: "my front ribs and back ribs are hurting really bad". aa5 Pt reports pain began this morning. Onset of symptoms was March 02, 2023. 16:23 Acuity: ANDREA 3 aa5 16:23 Risk Assessment: Do you want to hurt yourself or someone else? Patient reports no aa5 desire to harm self or others. 16:23 Coronavirus screen: At this time, the client does not indicate any symptoms associated aa5 with coronavirus-19. Ebola Screen: Patient denies travel to an Ebola-affected area in the 21 days before illness onset. Initial Sepsis Screen: Does the patient meet any 2 criteria? No. Patient's initial sepsis screen is negative. Does the patient have a suspected source of infection? No. Patient's initial sepsis screen is negative. 16:23 Method Of Arrival: Ambulatory aa5 Historical: - Allergies: 16:23 Adhesives; aa5 16:23 Codeine; aa5 16:23 PENICILLINS; aa5 16:23 steroids; aa5 - PMHx: 16:23 Gastric Reflux; HERPES; osteoarthritis; TIA; aa5 - PSHx: 16:23 Appendectomy; Cholecystectomy; partial hysterectomy; aa5 16:25 hernia; aa5 - Immunization history:: Adult Immunizations up to date, Client reports receiving the 2nd dose of the Covid vaccine. - Social history:: Smoking status: Patient denies any tobacco usage or history of. Patient/guardian denies using alcohol. Screenin:36 [facility] ED Fall Risk Assessment (Adult) History of falling in the last 3 months, ld1 including since admission No falls in past 3 months (0 pts). Abuse screen: Denies threats or abuse. Denies injuries from another. Nutritional screening: No deficits noted. Tuberculosis screening: No symptoms or risk factors identified. Assessment: 17:36 General: Appears in no apparent distress. comfortable, Behavior is calm, cooperative, ld1 appropriate for age. Pain: Complains of pain in anterior aspect of right lateral abdomen and anterior aspect of left lateral abdomen Pain does not radiate. Pain currently is 8 out of 10 on a pain scale. Quality of pain is described as throbbing, Pain began 1 hour ago. Neuro: Level of Consciousness is awake, alert, obeys commands, Oriented to person, place, time, situation. Cardiovascular: Capillary refill < 3 seconds Patient's skin is warm and dry. Rhythm is sinus rhythm. Respiratory: Airway is patent Respiratory effort is even, unlabored. GI: Abdomen is round non-distended. : No signs and/or symptoms were reported regarding the genitourinary system. EENT: No signs and/or symptoms were reported regarding the EENT system. Derm: No signs and/or symptoms reported regarding the dermatologic system. Musculoskeletal: No signs and/or symptoms reported regarding the musculoskeletal system. Vital Signs: 16:23 BP 142 / 62; Pulse 83; Resp 14 S; Temp 97.8(TE); Pulse Ox 100% on R/A; Weight 99.79 kg aa5 (R); Height 5 ft. 1 in. (R); 17:36 BP 104 / 70; Pulse 69; Resp 16; Pulse Ox 99% on R/A; ld1 16:23 Body Mass Index 41.57 (99.79 kg, 154.94 cm) aa5 ED Course: 16:07 Patient arrived in ED. mr 16:10 Axel Abril, [facility] kb 16:10 Jose Desai MD is Attending Physician. kb 16:23 Arm band placed on. aa5 16:24 Triage completed. aa5 16:57 XRAY Chest (1 view) In Process Unspecified. EDMS 17:35 Inserted saline lock: 22 gauge in right antecubital area, using aseptic technique. ko1 Blood collected. 17:36 Sahara Gongora, RN is Primary Nurse. ko1 17:36 Patient has correct armband on for positive identification. Placed in gown. Bed in low ld1 position. Call light in reach. Side rails up X2. cardiac monitor technician on. Pulse ox on. NIBP on. Door closed. Noise minimized. Warm blanket given. 17:36 Basic Metabolic Panel Sent. ko1 17:36 CBC with Diff Sent. ko1 17:36 LFT's Sent. ko1 17:36 Magnesium Sent. ko1 17:36 Troponin HS Sent. ko1 17:36 No provider procedures requiring assistance completed. Patient maintains SpO2 ld1 saturation greater than 95% on room air. 17:40 D-Dimer Sent. ko1 18:05 Radiology exam delayed due to lab results not completed at this time. (BUN/Creatinine). jg10 18:29 CT Chest For PE Angio In Process Unspecified. EDMS 19:12 IV discontinued, intact, bleeding controlled, No redness/swelling at site. Pressure as6 dressing applied. Administered Medications: No medications were administered Medication: 17:36 VIS not applicable for this client. ld1 Outcome: 18:51 Discharge ordered by MD. kb 19:12 Discharged to home ambulatory, with significant other. as6 19:12 Condition: stable 19:12 Discharge instructions given to patient, Instructed on discharge instructions, follow up and referral plans. medication usage, Demonstrated understanding of instructions, follow-up care, medications, Prescriptions given X 1. 19:13 Patient left the ED. as6 Signatures: Dispatcher [employer] EDMS Abril Reyna, GRACE LIVESTOCK DEALER-Ne Burgos mr BarcenasCyndee, RN RN aa5 Amna Leon RN RN ld1 Guillaume Damon RN RN as6 Sahara Gongora RN RN ko1 Cha Jacob jg10 Corrections: (The following items were deleted from the chart) 17:48 17:36 Inserted saline lock: 22 gauge in right antecubital area, using aseptic ko1 technique. Blood collected. ld1
--- NOTE | 2023-03-02 18:52 | EDPHYS ---
Physician Documentation [facility] Name: Beryl Shah Age: 73 yrs Sex: Female : 1950 Arrival Date: 03/02/2023 Time: 15:57 Bed 3 Private MD: ED Physician Jose Desai HPI: 03/02 17:26 This 73 yrs old Female presents to ER via Ambulatory with complaints of Rib pain. kb 17:26 The patient or guardian reports chest pain that is located primarily in the anterior kb and posterior lower ribs. Onset: this morning. The pain does not radiate. Associated signs and symptoms: The patient has no apparent associated signs or symptoms. The chest pain is described as aching. Duration: The patient or guardian reports a single episode. Modifying factors: The symptoms are alleviated by nothing. the symptoms are aggravated by cough, deep breath, movement, palpation of area. Severity of pain: At its worst the pain was moderate in the emergency department the pain is unchanged. The patient has not experienced similar symptoms in the past. The patient has not recently seen a physician. 17:27 Pt reports rib pain that started this morning. Denies fever, cough or congestion. kb STates she had diarrhea and vomiting 3 days ago, but those symptoms resolved 1.5 days ago. Historical: - Allergies: 16:23 Adhesives; aa5 16:23 Codeine; aa5 16:23 PENICILLINS; aa5 16:23 steroids; aa5 - PMHx: 16:23 Gastric Reflux; HERPES; osteoarthritis; TIA; aa5 - PSHx: 16:23 Appendectomy; Cholecystectomy; partial hysterectomy; aa5 16:25 hernia; aa5 - Immunization history:: Adult Immunizations up to date, Client reports receiving the 2nd dose of the Covid vaccine. - Social history:: Smoking status: Patient denies any tobacco usage or history of. Patient/guardian denies using alcohol. ROS: 17:25 Constitutional: Negative for fever, chills, and weight loss. kb 17:25 Cardiovascular: Positive for lower rib pain bilaterally, anterior and posterior. 17:25 All other systems are negative. Exam: 17:25 Constitutional: This is a well developed, well nourished patient who is awake, alert, kb and in no acute distress. Head/Face: Normocephalic, atraumatic. ENT: Moist Mucous membranes Cardiovascular: Regular rate and rhythm with a normal S1 and S2. No gallops, murmurs, or rubs. No pulse deficits. Respiratory: Respirations even and unlabored. No increased work of breathing. Talking in full sentences Abdomen/GI: Soft, non-tender. No distention Skin: Warm, dry with normal turgor. Normal color. MS/ Extremity: Pulses equal, no cyanosis. Neurovascular intact. Full, normal range of motion. Neuro: Awake and alert, GCS 15, oriented to person, place, time, and situation. Moves all extremities. Normal gait. 17:25 Chest/axilla: Inspection: normal, Palpation: tenderness, that is moderate, of the anterior and posterior lower ribs, that totally reproduces the patient's complaints. 17:33 ECG was reviewed by the Attending Physician. kb Vital Signs: 16:23 BP 142 / 62; Pulse 83; Resp 14 S; Temp 97.8(TE); Pulse Ox 100% on R/A; Weight 99.79 kg aa5 (R); Height 5 ft. 1 in. (R); 17:36 BP 104 / 70; Pulse 69; Resp 16; Pulse Ox 99% on R/A; ld1 16:23 Body Mass Index 41.57 (99.79 kg, 154.94 cm) aa5 MDM: 16:10 Patient medically screened. kb 17:26 Data reviewed: vital signs, nurses notes. kb 18:44 Differential diagnosis: abnormal EKG, acute myocardial infarction, coronary artery kb disease chest wall pain. Counseling: I had a detailed discussion with the patient and/or guardian regarding: the historical points, exam findings, and any diagnostic results supporting the discharge/admit diagnosis, lab results, radiology results, the need for outpatient follow up, a family practitioner, to return to the emergency department if symptoms worsen or persist or if there are any questions or concerns that arise at home. 03/02 16:28 Order name: Basic Metabolic Panel; Complete Time: 18:16 kb 03/02 16:28 Order name: CBC with Diff; Complete Time: 17:55 kb 03/02 16:28 Order name: LFT's; Complete Time: 18:16 kb 03/02 16:28 Order name: Magnesium; Complete Time: 18:16 kb 03/02 16:28 Order name: Troponin HS; Complete Time: 18:16 kb 03/02 17:35 Order name: D-Dimer; Complete Time: 17:58 kb 03/02 16:28 Order name: XRAY Chest (1 view); Complete Time: 17:08 kb 03/02 17:58 Order name: CT Chest For PE Angio; Complete Time: 18:43 kb 03/02 16:28 Order name: EKG; Complete Time: 16:28 kb 03/02 16:28 Order name: EKG - Nurse/Tech; Complete Time: 17:36 kb 03/02 16:28 Order name: IV Saline Lock; Complete Time: 17:36 kb 03/02 16:28 Order name: Labs collected and sent; Complete Time: 17:36 kb EC:33 Rate is 68 beats/min. Rhythm is regular. QRS [place] is Normal. PA interval is normal at kb 144 msec. QRS interval is normal at 70 msec. QT interval is normal at 391 msec. Administered Medications: No medications were administered Disposition Summary: 03/02/23 18:51 Discharge Ordered Location: Home kb Condition: Stable kb Diagnosis - Chest pain on breathing kb Followup: kb - With: Emergency Department - When: As needed - Reason: Worsening of condition Followup: kb - With: Private Physician - When: 2 - 3 days - Reason: Recheck today's complaints, Continuance of care, Re-evaluation by your physician Discharge Instructions: - Discharge Summary Sheet kb - Musculoskeletal Pain kb - Chest Wall Pain, [id number] kb Forms: - Medication Reconciliation Form kb - Thank You Letter kb - Antibiotic Education kb - Prescription Opioid Use kb Prescriptions: - orphenadrine citrate 100 mg Oral Tablet Sustained Release - take 1 tablet by ORAL route 2 times per day As needed; 20 tablet; Refills: 0, kb Product Selection Permitted Signatures: Dispatcher [employer] Abril Benjamin, Cyndee Gallegos, RN RN aa5 Amna Leon RN RN ld1
[2023-03-02 19:30] VITALS: TEMP 97.8
[2023-03-02 19:32] VITALS: BP 104/70; O2SAT 99
--- NOTE | 2023-03-03 05:49 | EKG ---
Test Date: 2023-03-02 Test Time: 17:27:23 [employer]: Kirk FORDE MEASUREMENT RESULTS: Intervals: Rate: 68 NV: 144 QRSD: 70 QT: 368 QTc: 391 [place]: P: 59 NV: 144 QRS: -4 T: 16 INTERPRETIVE STATEMENTS: Normal sinus rhythm Inferior infarct, age undetermined Anterior infarct, age undetermined Abnormal ECG Compared to ECG 12/14/2021 14:24:21 No significant changes Electronically Signed On 03-03-23 05:48:37 CDT by Ricardo Norwood
== END 2023-03-02 19:13 | disposition home or self-care (01) ==
LOC: ER 15:57
DX: R07.1 Chest pain on breathing (principal); Z88.0 Allergy status to penicillin; Z88.5 Allergy status to narcotic agent; Z88.8 Allergy status to other drugs, medicaments and biological substances
CPT/HCPCS: 93005; 85025; 80048; 36415; 83735; 85379; 80076; 84484; 71275; 71045; 99285; Q9967

== ENCOUNTER → 2023-11-22 | Emergency (ER) | payer OTHER ==
[~2023-11-22] MED LIST: LIDOCAINE 1% MPF 5 ML VIAL ONE; TDAP (DIPHTH,PERTUSS(ACELL),TET VAC) 0.5 ML VIAL IMVAC ONE
--- NOTE | 2023-11-22 19:59 | RAD REPORT ---
EXAM DESCRIPTION: RAD - Knee Left 3 View - 11/22/2023 7:52 pm CLINICAL HISTORY: PAIN COMPARISON: Knee Left 3 View dated 03/09/2022; Knee Left 3 view dated 02/17/2014 FINDINGS: There is significant soft tissue swelling inferior to the patella anteriorly. No acute fra cture or dislocation. No significant joint fluid.
--- NOTE | 2023-11-22 20:22 | RAD REPORT ---
EXAM DESCRIPTION: CT - [id number] - 11/22/2023 8:12 pm CLINICAL HISTORY: Trauma, head and neck injury. PAIN COMPARISON: No comparisons TECHNIQUE: Axial 5 mm thick images of the head were obtained. Axial 2 mm thick images of the cervical spine were obtained with sagittal and coronal reconstruction images generated and reviewed. All CT scans are performed using dose optimization technique as appropriate and may include automated exposure control or mA/KV adjustment according to patient size. FINDINGS: CT HEAD WITHOUT CONTRAST: No acute hemorrhage, hydrocephalus or extra-axial collection is identified.No areas of brain edema or midline shift. The paranasal sinuses and mastoids are clear.The calvarium is intact. Small frontal scalp hematoma. CT CERVICAL SPINE WITHOUT CONTRAST: No fracture or subluxation.Anterior fusion hardware noted in C4-6.No prevertebral soft tissues swelli ng is identified. IMPRESSION: No acute intracranial or cervical spine findings.
--- NOTE | 2023-11-22 21:07 | RAD REPORT ---
EXAM DESCRIPTION: RAD - Ankle Left 3 View - 11/22/2023 9:00 pm CLINICAL HISTORY: PAIN COMPARISON: No comparisons FINDINGS: Prominent soft tissue swelling about the ankle. Large posterior and plantar calcaneal spur s. No acute fracture or dislocation.
--- NOTE | 2023-11-22 21:44 | EDPHYS ---
Physician Documentation [facility] Name: Beryl Shah Age: 73 yrs Sex: Female : 1950 Arrival Date: 11/22/2023 Time: 19:21 Bed 8 Private MD: Ama Concepcion C ED Physician Rich Hyman HPI: 11/22 21:41 This 73 yrs old Female presents to ER via Wheelchair with complaints of Fall Injury, kb Head Injury-Adult. 21:41 Patient is a 73-year-old female who presents for head injury, knee pain and ankle pain kb on the left side after falling in the parking lot. Patient was here visiting a family member, walked to her car and slipped on the wet ground. Laceration to forehead. No LOC. Reports head and neck pain. Historical: - Allergies: 19:51 Adhesives; km8 19:51 Codeine; km8 19:51 PENICILLINS; km8 19:51 steroids; km8 - PMHx: 19:51 Gastric Reflux; HERPES; osteoarthritis; TIA; km8 - PSHx: 19:51 Appendectomy; Cholecystectomy; hernia; partial hysterectomy; km8 - Immunization history:: Client reports receiving the 2nd dose of the Covid vaccine, Flu vaccine is up to date. - Social history:: Smoking status: Patient denies any tobacco usage or history of. Patient/guardian denies using alcohol, street drugs. ROS: 21:40 Constitutional: Negative for fever, chills, and weight loss, kb 21:40 Neck: Positive for pain with movement, pain at rest, 21:40 MS/extremity: Positive for pain, of the left lateral ankle and left knee, 21:40 Skin: Positive for laceration(s), of the forehead, 21:40 Neuro: Positive for headache, 21:40 All other systems are negative, Exam: 21:39 Constitutional: This is a well developed, well nourished patient who is awake, alert, kb and in no acute distress. ENT: Moist Mucous membranes Cardiovascular: Regular rate Respiratory: Respirations even and unlabored. No increased work of breathing. Talking in full sentences Abdomen/GI: Soft, non-tender. No distention Neuro: Awake and alert, GCS 15, oriented to person, place, time, and situation. Moves all extremities. Normal gait. 21:39 Musculoskeletal/extremity: Extremities: grossly normal except: noted in the left knee: pain, swelling, ROM: intact in all extremities, Circulation is intact in all extremities. Sensation intact. Weight bearing: able to fully bear weight, 21:39 Skin: injury, laceration(s), the wound is approximately 2 cm(s), of the forehead, that can be described as clean, no foreign body, irregular, with mild bleeding, 21:42 Head/face: Noted is no obvious of injury or deformity except hematoma, that is kb moderate, of the forehead, a laceration(s), of the forehead, Vital Signs: 20:01 BP 142 / 78; Pulse 67; Resp 18; Temp 98(O); Pulse Ox 99% ; Pain 10/10; nj1 20:30 BP 149 / 64; Pulse 59; Resp 16; Pulse Ox 96% on R/A; km8 21:00 BP 145 / 84; Pulse 100; Resp 16; Pulse Ox 100% on R/A; km8 21:30 BP 145 / 72; Pulse 72; Resp 16; Pulse Ox 99% on R/A; km8 22:00 BP 138 / 72; Pulse 68; Resp 16; Pulse Ox 100% on R/A; km8 20:01 Pain Scale: Adult nj1 Laceration: 21:42 Wound Repair of 2cm ( 0.8in ) subcutaneous laceration to forehead. Irregularly shaped.. kb Distal neuro/vascular/tendon intact. Anesthesia: Local anesthetic administered with 2.5 mls of 1% lidocaine. Wound prep: Extensive cleansing with hibiclenz by me, Wound irrigation with saline by me. Skin closed with 5 5-0 Fast-absorbing gut using simple sutures and sterile technique. Patient tolerated well. MDM: 19:35 Patient medically screened. kb 21:40 Differential diagnosis: abrasion, closed head injury, contusion, fracture, laceration. kb Data reviewed: vital signs, nurses notes. Counseling: I had a detailed discussion with the patient and/or guardian regarding the historical points, exam findings, and any diagnostic results supporting the discharge/admit diagnosis, radiology results, the need for outpatient follow up, a family practitioner, to return to the emergency department if symptoms worsen or persist or if there are any questions or concerns that arise at home. 01/24 19:43 Order name: CT Head C Spine; Complete Time: 20:23 kb 11/22 19:43 Order name: Knee Left 3 View XRAY; Complete Time: 20:02 kb 11/22 20:23 Order name: Ankle Left 3 View XRAY; Complete Time: 21:07 kb 11/22 19:43 Order name: Dressing - Wound; Complete Time: 22:22 kb 11/22 19:43 Order name: Gloves, Sterile; Complete Time: 20:02 kb 11/22 19:43 Order name: Setup Suture Tray; Complete Time: 20:02 kb Administered Medications: 20:19 Drug: Boostrix Tdap IM 0.5 ml IM once; as a single dose Route: IM; Site: left deltoid; nj1 22:22 Follow up: Response: No adverse reaction km8 20:20 Not Given (Product Out of Stock): tetanus-diphtheria toxoidadult 0.5 ml IM once; nj1 Provide Vaccine Information Statement (VIS). 20:58 Drug: Lidocaine Infiltration (1 %) 1 vials 5 ml Infiltration once; to bedside {Note: nj1 Given to No Reyna [facility] for administration.} Volume: 5 ml; Route: Infiltration; Disposition: 11/23 09:06 Co-signature as Attending Physician, Rich Hyman MD I reviewed the patient's care rn provided by the Advanced Practice Provider and agree with the diagnosis and treatment plan. Disposition Summary: 11/22/23 21:44 Discharge Ordered Notes: Location: Home kb Condition: Stable kb Diagnosis - Fall on same level from slipping, tripping and stumbling without subsequent kb striking against object - Unspecified injury of head, initial encounter kb - Pain in left ankle and joints of left foot kb - Contusion of left knee kb - Laceration without foreign body of other part of head kb Followup: kb - With: Private Physician - When: 2 - 3 days - Reason: Recheck today's complaints, Continuance of care, Re-evaluation by your physician Followup: kb - With: Emergency Department - When: As needed - Reason: Worsening of condition Discharge Instructions: - Discharge Summary Sheet kb - Musculoskeletal Pain kb - Laceration Care, Adult, [id number] kb - Head Injury, Adult, [id number] kb Forms: - Medication Reconciliation Form kb - Thank You Letter kb - Antibiotic Education kb - Prescription Opioid Use kb - Patient Portal Instructions kb - Leadership Thank You Letter kb Signatures: Dispatcher [employer] ALVARO Axel Abril, MANAGEMENT DEPARTMENT CHAIR-C MANAGEMENT DEPARTMENT CHAIR-Ckb Rich Hyman MD MD rn Chapis Walter RN RN nj1 Morenita Perez RN RN km8 Corrections: (The following items were deleted from the chart) 11/22 21:43 21:39 Constitutional: This is a well developed, well nourished patient who is awake, kb alert, and in no acute distress. kb
--- NOTE | 2023-11-22 21:44 | ER ---
Nurse's Notes [facility] Name: Beryl Shah Age: 73 yrs Sex: Female : 1950 Arrival Date: 11/22/2023 Time: 19:21 Bed 8 Private MD: Ama Concepcion C Diagnosis: Fall on same level from slipping, tripping and stumbling without subsequent striking against object;Unspecified injury of head, initial encounter;Pain in left ankle and joints of left foot;Contusion of left knee;Laceration without foreign body of other part of head Presentation: 11/22 19:48 Chief complaint: Patient states: pt tripped over curb in ER parking lot about 20 mins km8 ago; pt reports pain to left knee; left elbow, neck, and forehead; pt noted to have a laceration to forehead, bleeding controlled at this time; denies LOC. Coronavirus screen: Client denies travel out of the [place] in the last 14 days. Ebola Screen: No symptoms or risks identified at this time. Risk Assessment: Do you want to hurt yourself or someone else? Patient reports no desire to harm self or others. Onset of symptoms was November 22, 2023 at 19:30. 19:48 Method Of Arrival: Wheelchair km8 19:48 Acuity: ANDREA 3 km8 20:10 Initial Sepsis Screen: Does the patient meet any 2 criteria? No. Patient's initial nj1 sepsis screen is negative. Does the patient have a suspected source of infection? No. Patient's initial sepsis screen is negative. Triage Assessment: 19:51 General: Appears in no apparent distress. comfortable, Behavior is calm, cooperative, km8 appropriate for age. Pain: Complains of pain in left knee, left elbow, forehead, and neck Pain currently is 8 out of 10 on a pain scale. EENT: No signs and/or symptoms were reported regarding the EENT system. Neuro: Level of Consciousness is awake, alert, obeys commands, Oriented to person, place, time, situation. Cardiovascular: Denies chest pain, shortness of breath, Capillary refill < 3 seconds Patient's skin is warm and dry. Respiratory: Airway is patent Respiratory effort is even, unlabored, Respiratory pattern is regular, symmetrical. GI: No signs and/or symptoms were reported involving the gastrointestinal system. : No signs and/or symptoms were reported regarding the genitourinary system. Derm: Skin is healthy with good turgor, Skin is dry, Skin is pink, warm \T\ dry. Skin temperature is cool Wound noted forehead Wound is laceratioin. Musculoskeletal: Range of motion: intact in all extremities, Reports pain in left knee and left elbow and neck. Historical: - Allergies: 19:51 Adhesives; km8 19:51 Codeine; 8 19:51 PENICILLINS; 8 19:51 steroids; km8 - PMHx: 19:51 Gastric Reflux; HERPES; osteoarthritis; TIA; km8 - PSHx: 19:51 Appendectomy; Cholecystectomy; hernia; partial hysterectomy; km8 - Immunization history:: Client reports receiving the 2nd dose of the Covid vaccine, Flu vaccine is up to date. - Social history:: Smoking status: Patient denies any tobacco usage or history of. Patient/guardian denies using alcohol, street drugs. Screenin:08 [facility] ED Fall Risk Assessment (Adult) Score/Fall Risk Level 0 - 2 = Low Risk [facility] Oriented to surroundings, Maintained a safe environment, Provided non-skid footwear, Hourly rounding (assess needs \T\ fall precautionary measures) done. Abuse screen: Denies threats or abuse. Denies injuries from another. Nutritional screening: No deficits noted. Tuberculosis screening: No symptoms or risk factors identified. Assessment: 20:00 Reassessment: See triage assessment. [facility] Vital Signs: 20:01 BP 142 / 78; Pulse 67; Resp 18; Temp 98(O); Pulse Ox 99% ; Pain 10/10; [facility] 20:30 BP 149 / 64; Pulse 59; Resp 16; Pulse Ox 96% on R/A; km8 21:00 BP 145 / 84; Pulse 100; Resp 16; Pulse Ox 100% on R/A; km8 21:30 BP 145 / 72; Pulse 72; Resp 16; Pulse Ox 99% on R/A; km8 22:00 BP 138 / 72; Pulse 68; Resp 16; Pulse Ox 100% on R/A; km8 20:01 Pain Scale: Adult [facility] ED Course: 19:27 Patient arrived in ED. es 19:27 Ama Concepcion MD is Private Physician. es 19:34 Abril Reyna FNP-C is [facility]. kb 19:35 Rich Hyman MD is Attending Physician. kb 19:51 Triage completed. km8 19:51 Arm band placed on right wrist. km8 19:54 Knee Left 3 View XRAY In Process Unspecified. EDMS 20:00 Patient has correct armband on for positive identification. Bed in low position. Call nj1 light in reach. Side rails up X 1. Adult w/ patient. 20:00 Provided Education on: call light, fall precautions. nj1 20:01 Chapis Walter, RN is Primary Nurse. nj1 20:14 CT Head C Spine In Process Unspecified. EDMS 21:02 Ankle Left 3 View XRAY In Process Unspecified. EDMS 22:25 No provider procedures requiring assistance completed. Patient did not have IV access km8 during this emergency room visit. Administered Medications: 20:19 Drug: Boostrix Tdap IM 0.5 ml IM once; as a single dose Route: IM; Site: left deltoid; nj1 22:22 Follow up: Response: No adverse reaction km8 20:20 Not Given (Product Out of Stock): tetanus-diphtheria toxoidadult 0.5 ml IM once; nj1 Provide Vaccine Information Statement (VIS). 20:58 Drug: Lidocaine Infiltration (1 %) 1 vials 5 ml Infiltration once; to bedside {Note: nj1 Given to No [place] for administration.} Volume: 5 ml; Route: Infiltration; Medication: 22:25 VIS not applicable for this client. km8 Outcome: 21:44 Discharge ordered by MD. kb 22:26 Discharged to home via wheelchair, km8 22:26 Condition: good 22:26 Discharge instructions given to patient, family, Instructed on discharge instructions, follow up and referral plans. wound care, Demonstrated understanding of instructions, follow-up care, wound care, 22:26 Patient left the ED. km8 Signatures: Dispatcher [employer] EDMD Abril Reyna FNP-C PAPERBOARD MACHINE OPERATOR-Ckb Laila Enrique Norma, RN RN nj1 Morenita Perez, PRINCE RN km8 Corrections: (The following items were deleted from the chart) 20:14 20:01 BP 142 / 78; Pulse 67bpm; Resp 18bpm; Pulse Ox 99%; nj1 nj1
[2023-11-23 02:04] VITALS: BP 138/72; TEMP 98; O2SAT 100
== END ==
LOC: ER 19:21
PROC: 0HQ1XZZ Repair Face Skin, External Approach (ICD-10-PCS; principal; 2023-11-22)
DX: S01.81XA Laceration without foreign body of other part of head, initial encounter (principal); S80.02XA Contusion of left knee, initial encounter; M25.572 Pain in left ankle and joints of left foot; W01.0XXA Fall on same level from slipping, tripping and stumbling without subsequent striking against object, initial encounter; Z88.0 Allergy status to penicillin; Z88.5 Allergy status to narcotic agent; Z88.8 Allergy status to other drugs, medicaments and biological substances; Z91.048 Other nonmedicinal substance allergy status
CPT/HCPCS: 70450; 72125; 73562; 73610; 12011; J2001

== ENCOUNTER 2024-10-14 17:16 | Emergency (ER) | payer OTHER ==
[2024-10-14 18:41] LABS: Absolute Basophils 0.1 K/uL (0-0.5); Absolute Eosinophils 0.1 K/uL (0-0.5); Absolute Monocytes 0.6 K/uL (0.1-1.3); Absolute Neutrophil 6.8 K/uL (1.8-8.0); Basophils % 1.2 % (0-1.3); Eosinophils % 0.6 % (0-4.4); Hematocrit 41.4 % (36.0-45.0); Hemoglobin 13.9 g/dL (12.0-15.0); Lymphocytes % 21.2 % (15.3-44.8); MCH 34.5 pg (27.0-35.0); MCHC 33.7 g/dL (32.0-36.0); MCV 102.4 fL (80-100); MPV 8.8 fL (7.6-11.3); Monocytes % 6.2 % (3.3-12.3); Neutrophils % 70.8 % (41.7-73.7); Nucleated Red Blood Cells % 0.1 % (0-0); Platelets 216 thou/uL (152-406); RBC Red Blood Cell Count 4.04 M/uL (3.86-4.86); Red Cell Distribution Width 13.7 % (12.1-15.2)
[2024-10-14] MEDS ORDERED: NA CHLORIDE 0.9% 1,000 ML ONE (18:48)
[2024-10-14 19:01] LABS: Albumin 3.6 g/dL (3.4-5.0); Albumin/Globulin Ratio 1.1 (1.1-1.8); Bilirubin Total 0.4 mg/dL (0.2-1.0); Globulin 3.4 g/dL (2.3-3.5)
[2024-10-14 19:15] LABS: Specific Gravity 1.007 (1.005-1.030); Sqamous Epithelial <5 /HPF (None Seen); Urine Bacteria <20 /HPF (<20); Urine Bilirubin NEGATIVE (Negative); Urine Blood 3+ (Negative); Urine Clarity Extremely Turbid (Clear); Urine Color Light-Yellow (Yellow); Urine Crystals Unidentified Few /HPF (None Seen); Urine Culture Reflex Order REFLEXED; Urine Glucose NEGATIVE (Negative); Urine Ketones NEGATIVE (Negative); Urine Microscopic Reflex YN ORDER UMIC; Urine Nitrite 2+ (Negative); Urine Protein NEGATIVE (Negative); Urine Urobilinogen Normal (Normal); Urine WBC >50 /HPF (<5); Urine WBC Clump Rare /HPF (None Seen); Urine Yeast (Budding) Few /HPF (None Seen)
[2024-10-14] MEDS ORDERED: CEFTRIAXONE 1000 MG/VIAL ONE (20:59)
--- NOTE | 2024-10-14 21:31 | RAD REPORT ---
EXAMINATION: CT Abdomen Pelvis W Contrast CLINICAL INDICATION: Female, 74 years old. urinary retention TECHNIQUE: CT abdomen and pelvis was performed, after the administration of IV contrast, as per [facility] protocol. Axial, sagittal and coronal reconstructions were obtained. One or more of the following dose reduction techniques were used: Automated exposure control, adjustment of the mA and k V according to patient size, and iterative reconstruction. Unless otherwise specified, incidental findings do not require dedicated imaging follow-up. COMPARISON: 12/04/2019 FINDINGS: LOWER CHEST: The visualized lung bases are clear. LIVER: Normal in size and contour. No focal lesion. BILIARY SYSTEM: Status post cholecystectomy. SPLEEN: Normal size. No focal lesion. PANCREAS: No mass, ductal dilation, or ashley-pancreatic fluid. ADRENALS: Normal; no mass. KIDNEYS: Normal size and contour. No hydronephrosis. URINARY BLADDER: Decompressed with Red catheter in place. GASTROINTESTINAL TRACT: No evidence of free air, significant intra-abdominal free fluid, bowel obstru ction or abscess. Moderate stool burden the proximal colon. APPENDIX: Appendix surgically absent. LYMPH NODES: No lymphadenopathy. MUSCULOSKELETAL: No acute or suspicious osseous abnormality. ADDITIONAL FINDINGS: None. IMPRESSION: No acute or concerning abnormalities seen in the abdomen or pelvis. Moderate stool burden in the proximal colon.
[2024-10-14] MEDS ORDERED: BISACODYL E.C. 5 MG TAB PO ONE (22:49)
--- NOTE | 2024-10-15 00:02 | EDPHYS ---
Physician Documentation [facility] Name: Beryl Shah Age: 74 yrs Sex: Female : 1950 Arrival Date: 10/14/2024 Time: 17:16 Bed 17 Private MD: ED Physician Jose Desai HPI: 10/14 17:35 This 74 yrs old Female presents to ER via Ambulatory with complaints of Urinary Problem.sb4 17:35 patient states that she has not urinated in 2 days. she complains of lower abdominal sb4 pain and back pain. states this has never happened before. states she has been drinking plenty of water. denies any fever or chills. denies any recent surgeries, procedures, or changes in medications. Historical: - Allergies: 17:35 Adhesives; cm10 17:35 Codeine; cm10 17:35 PENICILLINS; cm10 17:35 steroids; cm10 - Home Meds: 17:35 Valtrex 500 mg Oral tab [Active]; cm10 20:26 methocarbamol 500 mg Oral tab for Muscle Spasm [Active]; kj2 - PMHx: 17:35 Gastric Reflux; HERPES; osteoarthritis; TIA; cm10 - PSHx: 17:35 Appendectomy; Cholecystectomy; hernia; partial hysterectomy; cm10 - Immunization history:: Adult Immunizations up to date. - Infectious Disease History:: Denies. - Social history:: Smoking status: Patient denies any tobacco usage or history of. ROS: 17:35 Constitutional: Negative for fever, chills, and weight loss, sb4 17:35 Abdomen/GI: Positive for abdominal pain, 17:35 : Positive for difficulty urinating, 17:35 All other systems are negative, Exam: 17:35 Constitutional: This is a well developed, well nourished patient who is awake, alert, sb4 and in no acute distress. Head/Face: Normocephalic, atraumatic. Eyes: Extra-ocular motions intact. Periorbital areas with no swelling, redness, or edema. ENT: Mucous membranes moist. Cardiovascular: Regular rate and rhythm with a normal S1 and S2. Respiratory: No increased work of breathing, no retractions or nasal flaring. Abdomen/GI: Soft, non-tender, no distension. Skin: Warm, dry with normal turgor. Normal color with no rashes, no lesions, and no evidence of cellulitis. Vital Signs: 17:34 BP 143 / 63; Pulse 72; Resp 16; Temp 98.3(O); Pulse Ox 99% ; Weight 81.19 kg; Height 5 cm10 ft. 0 in. ; Pain 7/10; 20:55 BP 131 / 50; Pulse 65; Resp 20; Pulse Ox 99% ; kj2 22:05 BP 124 / 59; Pulse 70; Resp 18; Pulse Ox 95% on R/A; kj2 23:05 BP 122 / 60; Pulse 68; Resp 18; Temp 97.9; Pulse Ox 100% on R/A; kj2 10/15 00:31 BP 123 / 62; Pulse 70; Resp 18; Temp 97.9; Pulse Ox 100% on R/A; kj2 10/14 17:34 Body Mass Index 34.96 (81.19 kg, 152.4 cm) cm10 10/14 17:34 Pain Scale: Adult cm10 MDM: 10/14 17:37 Medical Screening Exam initiated sb4 23:37 Data reviewed: vital signs, nurses notes, lab test result(s), radiologic studies, and sb4 as a result, I will discharge patient. Counseling: I had a detailed discussion with the patient and/or guardian regarding the historical points, exam findings, and any diagnostic results supporting the discharge/admit diagnosis, the presence of at least one elevated blood pressure reading (>120/80) during this emergency department visit, lab results, radiology results, the need for outpatient follow up, a urologist, to return to the emergency department if symptoms worsen or persist or if there are any questions or concerns that arise at home. 10/14 17:35 Order name: CBC with Diff; Complete Time: 18:47 sb4 10/14 17:35 Order name: CMP; Complete Time: 19:03 sb4 10/14 17:35 Order name: Lipase; Complete Time: 19:03 sb4 10/14 17:35 Order name: Urinalysis w/ reflexes; Complete Time: 19:21 sb4 10/14 19:19 Order name: Urine Culture EDMT 10/14 19:03 Order name: CT Abd/Pelvis - IV Contrast Only; Complete Time: 21:34 sb4 10/14 17:35 Order name: IV Saline Lock; Complete Time: 18:38 sb4 10/14 17:35 Order name: Labs collected and sent; Complete Time: 18:38 sb4 10/14 17:35 Order name: Bladder Scanner; Complete Time: 18:49 sb4 10/14 18:49 Order name: Chahal; Complete Time: 19:01 sb4 10/14 22:21 Order name: Misc. Order: remove chahal; Complete Time: 22:31 sb4 Administered Medications: 18:57 Drug: NS 0.9% IV 1000 ml IV at 1 bolus Per protocol; to be given as a bolus over 60 kc6 minutes Route: IV; Rate: 1 bolus; Site: right antecubital; 21:08 Follow up: IV Status: Completed infusion; IV Intake: 1000ml kj2 21:07 Drug: Rocephin IV 1 grams IV at calculated rate once; Given slow IV push per pharmacy kj2 instructions Route: IV; Rate: calculated rate; Site: left antecubital; 22:31 Follow up: Response: No adverse reaction; IV Status: Completed infusion kj2 22:51 Drug: Bisacodyl PO 5 mg PO once Route: PO; kj2 10/15 00:28 Follow up: Response: No adverse reaction kj2 Disposition Summary: 10/15/24 00:01 Discharge Ordered Notes: Location: Home sb4 Problem: new sb4 Symptoms: have improved sb4 Condition: Stable sb4 Diagnosis - UTI/ Urinary tract infection, site not specified sb4 - Urinary retention sb4 - Constipation sb4 Followup: sb4 - With: Torsten Linda MD - When: 1 week - Reason: Further diagnostic work-up, Recheck today's complaints, Re-evaluation by your physician Discharge Instructions: - Discharge Summary Sheet sb4 - Constipation, Adult, [id number] sb4 - Urinary Tract Infection, Adult, [id number] sb4 - Acute Urinary Retention, Female, [id number] sb4 Forms: - Antibiotic Education sb4 - Patient Portal Instructions sb4 - Leadership Thank You Letter sb4 Prescriptions: - Macrobid 100 mg Oral Capsule - take 1 capsule ORAL route every 12 hours for 7 days; 14 capsule; Refills: 0, sb4 Product Selection Permitted Signatures: Dispatcher [employer] Jenn Oliver RN RN kc6 Rosa Isela [address] PA-C PA-C sb4 Lorena Pacheco RN RN cm10 Stacy Wallis, RN RN kj2
--- NOTE | 2024-10-15 00:02 | ER ---
Nurse's Notes [facility] Name: Beryl Shah Age: 74 yrs Sex: Female : 1950 Arrival Date: 10/14/2024 Time: 17:16 Bed 17 Private MD: Diagnosis: UTI/ Urinary tract infection, site not specified;Urinary retention;Constipation Presentation: 10/14 17:34 Chief complaint: Patient states: UNABLE TO URINATE X2 DAYS. PT REPORTS HAVING ABDOMINAL cm10 PAIN AND LOW BACK PAIN. Coronavirus screen: Client denies travel out of the [place] in the last 14 days. Ebola Screen: Patient denies travel to an Ebola-affected area in the 21 days before illness onset. No symptoms or risks identified at this time. Initial Sepsis Screen: Does the patient meet any 2 criteria? No. Patient's initial sepsis screen is negative. Does the patient have a suspected source of infection? No. Patient's initial sepsis screen is negative. Risk Assessment: Do you want to hurt yourself or someone else? Patient reports no desire to harm self or others. Onset of symptoms was October 14, 2024. 17:34 Method Of Arrival: Ambulatory cm10 17:34 Acuity: ANDREA 3 cm10 Triage Assessment: 17:36 General: Appears in no apparent distress. uncomfortable, Behavior is calm, cooperative. cm10 Neuro: No deficits noted. Level of Consciousness is awake, alert, obeys commands, Oriented to person, place, time, situation, Appropriate for age. Respiratory: No deficits noted. Airway is patent Respiratory effort is even, unlabored, Respiratory pattern is regular, symmetrical. Historical: - Allergies: 17:35 Adhesives; cm10 17:35 Codeine; cm10 17:35 PENICILLINS; cm10 17:35 steroids; cm10 - Home Meds: 17:35 Valtrex 500 mg Oral tab [Active]; cm10 20:26 methocarbamol 500 mg Oral tab for Muscle Spasm [Active]; kj2 - PMHx: 17:35 Gastric Reflux; HERPES; osteoarthritis; TIA; cm10 - PSHx: 17:35 Appendectomy; Cholecystectomy; hernia; partial hysterectomy; cm10 - Immunization history:: Adult Immunizations up to date. - Infectious Disease History:: Denies. - Social history:: Smoking status: Patient denies any tobacco usage or history of. Screenin:49 [facility] ED Fall Risk Assessment (Adult) History of falling in the last 3 months, kc6 including since admission No falls in past 3 months (0 pts) Confusion or Disorientation No (0 pts) Intoxicated or Sedated No (0 pts) Impaired Gait No (0 pts) Mobility Assist Device Used No (0 pt) Altered Elimination Yes (1 pt) Score/Fall Risk Level 0 - 2 = Low Risk Oriented to surroundings, Maintained a safe environment, Educated pt \T\ family on fall prevention, incl call for assistance when getting out of bed. Abuse screen: Denies threats or abuse. Denies injuries from another. Nutritional screening: No deficits noted. Tuberculosis screening: No symptoms or risk factors identified. Assessment: 18:50 General: Appears in no apparent distress. comfortable, well groomed, well developed, kc6 Behavior is calm, cooperative, appropriate for age. Pain: Complains of pain in abdomen and pelvis. Neuro: Level of Consciousness is awake, alert, obeys commands, Oriented to person, place, time, situation, Appropriate for age. Cardiovascular: Capillary refill < 3 seconds. Respiratory: Airway is patent Trachea midline Respiratory effort is even, unlabored, Respiratory pattern is regular, symmetrical. GI: No signs and/or symptoms were reported involving the gastrointestinal system. : Reports inability to void, since 10/13/24 pain in suprapubic area. EENT: No signs and/or symptoms were reported regarding the EENT system. Derm: No signs and/or symptoms reported regarding the dermatologic system. Skin is intact, is healthy with good turgor, Skin is pink, warm \T\ dry. Musculoskeletal: No signs and/or symptoms reported regarding the musculoskeletal system. Circulation, motion, and sensation intact. Capillary refill < 3 seconds, Range of motion: intact in all extremities. 19:00 Reassessment: Patient appears in no apparent distress at this time. Patient and/or kj2 family updated on plan of care and expected duration. Pain level reassessed. Patient is alert, oriented x 3, equal unlabored respirations, skin warm/dry/pink. 19:45 Reassessment: Patient appears in no apparent distress at this time. Patient and/or kj2 family updated on plan of care and expected duration. Pain level reassessed. Patient is alert, oriented x 3, equal unlabored respirations, skin warm/dry/pink. 20:55 Reassessment: Patient appears in no apparent distress at this time. Patient and/or kj2 family updated on plan of care and expected duration. Pain level reassessed. Patient is alert, oriented x 3, equal unlabored respirations, skin warm/dry/pink. 22:05 Reassessment: Patient appears in no apparent distress at this time. Patient and/or kj2 family updated on plan of care and expected duration. Pain level reassessed. Patient is alert, oriented x 3, equal unlabored respirations, skin warm/dry/pink. 23:05 Reassessment: Patient appears in no apparent distress at this time. Patient and/or kj2 family updated on plan of care and expected duration. Pain level reassessed. Patient is alert, oriented x 3, equal unlabored respirations, skin warm/dry/pink. 10/15 00:30 Reassessment: Patient appears in no apparent distress at this time. Patient and/or kj2 family updated on plan of care and expected duration. Pain level reassessed. Patient is alert, oriented x 3, equal unlabored respirations, skin warm/dry/pink. Vital Signs: 10/14 17:34 BP 143 / 63; Pulse 72; Resp 16; Temp 98.3(O); Pulse Ox 99% ; Weight 81.19 kg; Height 5 cm10 ft. 0 in. ; Pain 7/10; 20:55 BP 131 / 50; Pulse 65; Resp 20; Pulse Ox 99% ; kj2 22:05 BP 124 / 59; Pulse 70; Resp 18; Pulse Ox 95% on R/A; kj2 23:05 BP 122 / 60; Pulse 68; Resp 18; Temp 97.9; Pulse Ox 100% on R/A; kj2 10/15 00:31 BP 123 / 62; Pulse 70; Resp 18; Temp 97.9; Pulse Ox 100% on R/A; kj2 10/14 17:34 Body Mass Index 34.96 (81.19 kg, 152.4 cm) cm10 10/14 17:34 Pain Scale: Adult cm10 ED Course: 10/14 17:30 Patient arrived in ED. im 17:[address] [facility] sb4 17:31 Jose Desai MD is Attending Physician. sb4 17:35 Triage completed. cm10 17:36 Arm band placed on right wrist. Patient placed in waiting room. cm10 18:18 Jenn Shah, PRINCE is Primary Nurse. kc6 18:37 Initial lab(s) drawn, by me, sent to lab. Inserted saline lock: 20 gauge in right kb4 antecubital area, using aseptic technique. Blood collected. Flushed with 10 mL NS. 18:38 CBC with Diff Sent. kb4 18:38 CMP Sent. kb4 18:38 Lipase Sent. kb4 18:49 Bladder scan completed. 441 mL. Patient maintains SpO2 saturation greater than 95% on kc6 room air. 18:50 Patient has correct armband on for positive identification. Placed in gown. Bed in low kc6 position. Call light in reach. Side rails up X 1. Pulse ox on. NIBP on. Door closed. Noise minimized. Lights dimmed. Warm blanket given. Pillow given. 19:05 Provided Education on: call light. kj2 19:05 Red cath inserted, using sterile technique, 18 Fr., by test director, by ED staff, balloon kc6 inflated, to gravity drainage, clamped. urine specimen collected. returned clear yellow urine. Patient tolerated well. 19:08 Report given to Stacy Wallis RN. kc6 20:22 CT Abd/Pelvis - IV Contrast Only In Process Unspecified. EDMS 22:06 No provider procedures requiring assistance completed. kj2 23:00 Assisted to bedside commode. kj2 10/15 00:01 Torsten Linda MD is Referral Physician. sb4 00:32 IV discontinued, intact, bleeding controlled, No redness/swelling at site. Pressure kj2 dressing applied. Administered Medications: 10/14 18:57 Drug: NS 0.9% IV 1000 ml IV at 1 bolus Per protocol; to be given as a bolus over 60 kc6 minutes Route: IV; Rate: 1 bolus; Site: right antecubital; 21:08 Follow up: IV Status: Completed infusion; IV Intake: 1000ml kj2 21:07 Drug: Rocephin IV 1 grams IV at calculated rate once; Given slow IV push per pharmacy kj2 instructions Route: IV; Rate: calculated rate; Site: left antecubital; 22:31 Follow up: Response: No adverse reaction; IV Status: Completed infusion kj2 22:51 Drug: Bisacodyl PO 5 mg PO once Route: PO; kj2 10/15 00:28 Follow up: Response: No adverse reaction kj2 Medication: 10/14 20:26 VIS not applicable for this client. kj2 Intake: 21:08 IV: 1000ml; Total: 1000ml. kj2 Outcome: 10/15 00:01 Discharge ordered by . sb4 00:30 Discharged to home ambulatory, kj2 00:30 Condition: stable 00:30 Discharge instructions given to patient, Instructed on discharge instructions, follow up and referral plans. Demonstrated understanding of instructions, follow-up care, 00:38 Patient left the ED. kj2 Addendum: 10/16/2024 10:51 Addendum: Culture Results: Positive urine culture. No further action required. Bacteria i w sensitive to prescribed antibiotic. Signatures: Dispatcher [employer] Merline Thomson, RN PRINCE iw Jenn Shah RN RN kc6 Rosa [address]ela [address], PA-C PA-C sb4 Mia Dove Clarissa RN RN cm10 Stacy Wallis RN RN kj2 Anaid Smith kb4
[2024-10-15 01:05] VITALS: TEMP 97.9; O2SAT 100
[2024-10-15 01:07] VITALS: BP 123/62
== END 2024-10-15 00:38 | disposition home or self-care (01) ==
LOC: ER 17:16
DX: N39.0 Urinary tract infection, site not specified (principal); K59.00 Constipation, unspecified
CPT/HCPCS: 96365; 96361; 87088; 85025; 81001; 87086; 36415; 87077; 87186; 83690; 80053; 74177; 51702; 99285; Q9967; J7030; J0696

== ENCOUNTER 2024-11-09 17:15 | Emergency (ER) | payer OTHER ==
[2024-11-09 18:30] LABS: Specific Gravity 1.021 (1.005-1.030); Sqamous Epithelial <5 /HPF (None Seen); Transitional Epithelial <5 /HPF (None Seen); Urine Bacteria <20 /HPF (<20); Urine Bilirubin NEGATIVE (Negative); Urine Blood 2+ (Negative); Urine Clarity Extremely Turbid (Clear); Urine Color Yellow (Yellow); Urine Culture Reflex Order REFLEXED; Urine Glucose NEGATIVE (Negative); Urine Ketones TRACE (Negative); Urine Microscopic Reflex YN ORDER UMIC; Urine Mucus Slight /HPF (None Seen); Urine Nitrite NEGATIVE (Negative); Urine Protein 1+ (Negative); Urine RBC >50 /HPF (None Seen); Urine Urobilinogen Normal (Normal); Urine WBC >50 /HPF (<5); Urine WBC Clump Few /HPF (None Seen); Urine pH 5.5 (5.0-7.0)
--- NOTE | 2024-11-09 18:42 | EDPHYS ---
Physician Documentation [facility] Name: Beryl Shah Age: 74 yrs Sex: Female : 1950 Arrival Date: 11/09/2024 Time: 17:15 Bed 9 Private MD: ED Physician Jessika Wilson HPI: 11/09 17:24 This 74 yrs old Female presents to ER via Unassigned with complaints of Urinary Problem.kb 17:24 Pt is a 74 year old female who presents for dysuria, urinary frequency and lower abd kb pain that started 2 days ago. States this is how it normally feels when she has a UTI. Denies fever, n/v. . Historical: - Allergies: 17:24 Adhesives; ll1 17:24 Codeine; ll1 17:24 PENICILLINS; ll1 17:24 steroids; ll1 - PMHx: 17:24 Gastric Reflux; HERPES; osteoarthritis; TIA; ll1 - PSHx: 17:24 Appendectomy; Cholecystectomy; hernia; partial hysterectomy; ll1 - Immunization history:: Adult Immunizations up to date. - Infectious Disease History:: Denies. - Social history:: Smoking status: Patient denies any tobacco usage or history of. ROS: 17:24 Constitutional: As per HPI kb Exam: 17:24 Constitutional: This is a well developed, well nourished patient who is awake, alert, kb and in no acute distress. Head/Face: Normocephalic, atraumatic. ENT: Moist Mucous membranes Cardiovascular: Regular rate Respiratory: Respirations even and unlabored. No increased work of breathing. Talking in full sentences Skin: Warm, dry with normal turgor. Normal color. MS/ Extremity: Pulses equal, no cyanosis. Neurovascular intact. Full, normal range of motion. Neuro: Awake and alert, GCS 15, oriented to person, place, time, and situation. 17:24 Abdomen/GI: Inspection: abdomen appears normal, Bowel sounds: normal, Palpation: soft, in all quadrants, mild abdominal tenderness, in the suprapubic area, right lower quadrant and left lower quadrant, 17:24 Back: CVA tenderness, is absent, Vital Signs: 17:22 BP 133 / 74; Pulse 73; Resp 16; Temp 97.4; Pulse Ox 100% ; Weight 78.93 kg; Height 5 ll1 ft. 0 in. ; Pain 10/10; 19:02 BP 128 / 75; Pulse 74; Resp 18 S; Pulse Ox 100% on R/A; ha1 17:22 Body Mass Index 33.98 (78.93 kg, 152.4 cm) ll1 17:22 Pain Scale: Adult ll1 MDM: 17:21 Medical Screening Exam initiated kb 17:25 Data reviewed: vital signs, nurses notes. Test considered but Not performed: Labs: cbc, kb cmp considered but pt only wants urinalysis at this time. . CT: ct abd considered but pt prefers to do a urine sample only at this time. States "I just need to get some antibiotics in me.". 18:39 Differential diagnosis: UTI, appendicitis, pyelonephritis, cystitis. Counseling: I had kb a detailed discussion with the patient and/or guardian regarding the historical points, exam findings, and any diagnostic results supporting the discharge/admit diagnosis, lab results, the need for outpatient follow up, a family practitioner, to return to the emergency department if symptoms worsen or persist or if there are any questions or concerns that arise at home. 11/09 17:21 Order name: Urinalysis w/ reflexes; Complete Time: 18:39 kb 11/09 18:34 Order name: Urine Culture EDMS Administered Medications: 18:56 Drug: Macrobid PO 100 mg PO once; administer with food Route: PO; ha1 Disposition Summary: 11/09/24 18:42 Discharge Ordered Notes: Location: Home kb Condition: Stable kb Diagnosis - UTI/ Urinary tract infection, site not specified kb Followup: kb - With: Emergency Department - When: As needed - Reason: Worsening of condition Followup: kb - With: Private Physician - When: 2 - 3 days - Reason: Recheck today's complaints, Continuance of care, Re-evaluation by your physician Discharge Instructions: - Discharge Summary Sheet kb - Urinary Tract Infection, Adult, [id number] kb Forms: - Medication Reconciliation Form kb - Antibiotic Education kb - Prescription Opioid Use kb - Patient Portal Instructions kb - Leadership Thank You Letter kb Prescriptions: - Macrobid 100 mg Oral Capsule - take 1 capsule ORAL route every 12 hours for 10 days; 20 capsule; Refills: 0, kb Product Selection Permitted Signatures: Dispatcher [employer] EDMS Abril Reyna FNP-C FNP-Robert Marcus Ruby, RN RN ll1 Taya Urban, RN RN ha1
--- NOTE | 2024-11-09 18:42 | ER ---
Nurse's Notes [facility] Name: Beryl Shah Age: 74 yrs Sex: Female : 1950 Arrival Date: 11/09/2024 Time: 17:15 Bed 9 Private MD: Diagnosis: UTI/ Urinary tract infection, site not specified Presentation: 11/09 17:22 Chief complaint: Patient states: Dysuria and lower abdominal pain for 2 days. ll1 Coronavirus screen: Client denies travel out of the [place] in the last 14 days. At this time, the client does not indicate any symptoms associated with coronavirus-19. Ebola Screen: Patient denies travel to an Ebola-affected area in the 21 days before illness onset. Initial Sepsis Screen: Does the patient meet any 2 criteria? No. Patient's initial sepsis screen is negative. Does the patient have a suspected source of infection? No. Patient's initial sepsis screen is negative. Risk Assessment: Do you want to hurt yourself or someone else? Patient reports no desire to harm self or others. Onset of symptoms was November 08, 2024. 17:22 Method Of Arrival: Ambulatory 1 17:22 Acuity: ANDREA 4 ll1 Triage Assessment: 17:26 General: Appears uncomfortable, Behavior is calm, cooperative, appropriate for age. ll1 Pain: Complains of pain in suprapubic area Quality of pain is described as aching. GI: Reports lower abdominal pain. : Reports burning with urination, pain with urination. Historical: - Allergies: 17:24 Adhesives; ll1 17:24 Codeine; ll1 17:24 PENICILLINS; ll1 17:24 steroids; ll1 - PMHx: 17:24 Gastric Reflux; HERPES; osteoarthritis; TIA; ll1 - PSHx: 17:24 Appendectomy; Cholecystectomy; hernia; partial hysterectomy; ll1 - Immunization history:: Adult Immunizations up to date. - Infectious Disease History:: Denies. - Social history:: Smoking status: Patient denies any tobacco usage or history of. Screenin:30 [facility] ED Fall Risk Assessment (Adult) History of falling in the last 3 months, ha1 including since admission No falls in past 3 months (0 pts) Confusion or Disorientation No (0 pts) Intoxicated or Sedated No (0 pts) Impaired Gait No (0 pts) Mobility Assist Device Used No (0 pt) Altered Elimination No (0 pt) Score/Fall Risk Level 0 - 2 = Low Risk Oriented to surroundings, Maintained a safe environment, Educated pt \T\ family on fall prevention, incl call for assistance when getting out of bed, Hourly rounding (assess needs \T\ fall precautionary measures) done. Abuse screen: Denies threats or abuse. Denies injuries from another. Nutritional screening: No deficits noted. Tuberculosis screening: No symptoms or risk factors identified. Assessment: 17:30 General: Appears comfortable, Behavior is calm, cooperative. Pain: Complains of pain in ha1 burning with urination Pain does not radiate. Pain at worst was 9 out of 10 on a pain scale. Quality of pain is described as burning. Neuro: Level of Consciousness is awake, alert, obeys commands, Oriented to person, place, time, situation. Cardiovascular: Capillary refill < 3 seconds Patient's skin is warm and dry. Respiratory: Airway is patent Respiratory effort is even, unlabored, Respiratory pattern is regular, symmetrical. GI: No signs and/or symptoms were reported involving the gastrointestinal system. : Urine is cloudy, Reports burning with urination. Derm: Skin is pink, warm \T\ dry. Musculoskeletal: Circulation, motion, and sensation intact. Range of motion: intact in all extremities. 18:30 Reassessment: Patient and/or family updated on plan of care and expected duration. Pain ha1 level reassessed. Patient is alert, oriented x 3, equal unlabored respirations, skin warm/dry/pink. Vital Signs: 17:22 BP 133 / 74; Pulse 73; Resp 16; Temp 97.4; Pulse Ox 100% ; Weight 78.93 kg; Height 5 ll1 ft. 0 in. ; Pain 10/10; 19:02 BP 128 / 75; Pulse 74; Resp 18 S; Pulse Ox 100% on R/A; ha1 17:22 Body Mass Index 33.98 (78.93 kg, 152.4 cm) ll1 17:22 Pain Scale: Adult ll1 ED Course: 17:19 Patient arrived in ED. al6 17:20 [facility]il Reyn[facility]-C [facility] kb 17:20 Jessika Wilson MD is Attending Physician. kb 17:21 Patient has correct armband on for positive identification. Bed in low position. Call ha1 light in reach. Side rails up X 1. 17:21 Provided Education on: plan of care . ha1 17:24 Triage completed. ll1 17:26 Arm band placed on Patient placed in an exam room, on a stretcher. ll1 17:31 Taya Urban, RN is Primary Nurse. ha1 17:53 Urinalysis w/ reflexes Sent. rs5 19:00 No provider procedures requiring assistance completed. Patient did not have IV access ha1 during this emergency room visit. Administered Medications: 18:56 Drug: Macrobid PO 100 mg PO once; administer with food Route: PO; ha1 Medication: 19:01 VIS not applicable for this client. ha1 Outcome: 18:42 Discharge ordered by . kb 19:01 Discharged to home ambulatory, ha1 19:01 Condition: stable 19:01 Discharge instructions given to patient, Instructed on discharge instructions, follow up and referral plans. no driving heavy equipment, Demonstrated understanding of instructions, follow-up care, medications, Prescriptions given X 1, 19:02 Patient left the ED. ha1 Signatures: Abril Reyna, ADMINISTRATIVE JOB TITLES-C ADMINISTRATIVE JOB TITLES-CkMarcus Ponce RN RN ll1 Taya Urban RN RN 1 Willy Rodriguez RN RN rs5 Ashanti Hayes6 Corrections: (The following items were deleted from the chart) 17:26 17:22 78.93 kg; Height 5 ft. 0 in.; BMI: 33.9; Pain 10/10, Adult; ll1 ll1
[2024-11-09] MEDS ORDERED: NITROFURAN MACRO 100 MG CAP PO ONE (18:51)
[2024-11-12 15:31] VITALS: BP 128/75; TEMP 97.4; O2SAT 100
== END 2024-11-09 19:02 | disposition home or self-care (01) ==
LOC: ER 17:15
DX: N39.0 Urinary tract infection, site not specified (principal); K21.9 Gastro-esophageal reflux disease without esophagitis; M19.90 Unspecified osteoarthritis, unspecified site; B00.9 Herpesviral infection, unspecified; Z86.73 Personal history of transient ischemic attack (TIA), and cerebral infarction without residual deficits
CPT/HCPCS: 81001; 87077; 87086; 87088; 87186; 99283

== ENCOUNTER 2024-12-25 17:00 | Emergency (ER) | payer OTHER ==
[2024-12-25] MEDS ORDERED: ACETAMINOPHEN 500 MG TAB ONE (17:54)
[2024-12-25] MEDS ORDERED: ONDANSETRON 4 MG/2 ML VIAL ONE ×2 (17:54→20:28)
[2024-12-25 18:03] LABS: Absolute Basophils 0.1 K/uL (0-0.5); Absolute Eosinophils 0.1 K/uL (0-0.5); Absolute Monocytes 0.5 K/uL (0.1-1.3); Absolute Neutrophil 3.5 K/uL (1.8-8.0); Basophils % 1.2 % (0-1.3); Eosinophils % 1.9 % (0-4.4); Hematocrit 41.5 % (36.0-45.0); Hemoglobin 14.2 g/dL (12.0-15.0); MCH 34.3 pg (27.0-35.0); MCHC 34.2 g/dL (32.0-36.0); MCV 100.4 fL (80-100); MPV 8.9 fL (7.6-11.3); Monocytes % 8.1 % (3.3-12.3); Neutrophils % 56.8 % (41.7-73.7); Nucleated Red Blood Cells % 0.1 % (0-0); Platelets 230 thou/uL (152-406); RBC Red Blood Cell Count 4.13 M/uL (3.86-4.86); Red Cell Distribution Width 13.5 % (12.1-15.2)
[2024-12-25 18:06] LABS: Specific Gravity 1.029 (1.005-1.030); Sqamous Epithelial <5 /HPF (None Seen); Urine Bacteria None Seen /HPF (<20); Urine Bilirubin NEGATIVE (Negative); Urine Blood Negative (Negative); Urine Clarity Turbid (Clear); Urine Color Yellow (Yellow); Urine Crystals Unidentified Few /HPF (None Seen); Urine Culture Reflex Order NOT NEEDED; Urine Glucose NEGATIVE (Negative); Urine Ketones 1+ (Negative); Urine Microscopic Reflex YN ORDER UMIC; Urine Mucus 2+ /HPF (None Seen); Urine Nitrite NEGATIVE (Negative); Urine Protein TRACE (Negative); Urine Urobilinogen 1+ (Normal); Urine WBC Clump Rare /HPF (None Seen); Urine Yeast (Budding) Trace /HPF (None Seen); Urine pH 5.5 (5.0-7.0)
[2024-12-25 18:12] LABS: PT Prothrombin Time 11.4 SECONDS (10.0-13.0); PTT, Activated Partial Thromb 30.6 SECONDS (24.3-36.9)
[2024-12-25 18:14] LABS: Barbiturates NEGATIVE (NEGATIVE); Benzodiazepines NEGATIVE (NEGATIVE); Cocaine NEGATIVE (NEGATIVE); METHAMPHETAM NEGATIVE (NEGATIVE); Methadone NEGATIVE (NEGATIVE); Opiates NEGATIVE (NEGATIVE); Phencyclidine NEGATIVE (NEGATIVE); THC Cannibis NEGATIVE (NEGATIVE)
[2024-12-25 18:23] LABS: ALT/SGPT 18 U/L (13-56); AST/SGOT 14 U/L (15-37); Albumin 3.7 g/dL (3.4-5.0); Alkaline Phosphatase 79 U/L (45-117); Anion Gap 9.6 mEq/L (5.0-15.0); BUN Blood Urea Nitrogen 14 mg/dL (7-18); Bicarbonate 27 mEq/L (21-32); Bilirubin Total 0.5 mg/dL (0.2-1.0); Globulin 3.7 g/dL (2.3-3.5); Glomerular Filtration Rate 62 ml/min (=/>90); Glucose Level 93 mg/dL (74-106); Potassium 3.6 mEq/L (3.5-5.1); Protein, Total 7.4 g/dL (6.4-8.2); Sodium Level 141 mEq/L (136-145)
[2024-12-25 18:24] LABS: Bilirubin Direct < 0.2 mg/dL (0-0.2); Bilirubin Indirect, Calculated 0.3 mg/dL (0.2-0.8)
--- NOTE | 2024-12-25 18:26 | ER ---
Nurse's Notes [facility] Name: Beryl Shah Age: 74 yrs Sex: Female : 1950 Arrival Date: 12/25/2024 Time: 17:00 Bed 17 Private MD: Diagnosis: Suicidal ideations Presentation: 12/25 17:17 Chief complaint: Patient states: "I just want to get rid of myself, I'm tired of kc6 living. I've felt like this for a long time. I would cut myself wherever I can to bleed out, I don't have a gun." [place] [employer] at bedside. 17:17 Coronavirus screen: At this time, the client does not indicate any symptoms associated kc6 with coronavirus-19. Ebola Screen: No symptoms or risks identified at this time. Initial Sepsis Screen: Does the patient meet any 2 criteria? No. Patient's initial sepsis screen is negative. Does the patient have a suspected source of infection? No. Patient's initial sepsis screen is negative. Risk Assessment: Do you want to hurt yourself or someone else? Patient reports desire/thoughts of hurting themselves or someone else. Provider notified. Onset of symptoms was December 25, 2024. 17:17 Method Of Arrival: Law Enforcement: [place] [employer] kc6 17:17 Acuity: ANDREA 2 kc6 Historical: - Allergies: 17:17 Adhesives; kc6 17:17 Codeine; kc6 17:17 PENICILLINS; kc6 17:17 steroids; kc6 - PMHx: 17:17 Gastric Reflux; HERPES; osteoarthritis; TIA; Depressive disorder; kc6 - PSHx: 17:17 Appendectomy; Cholecystectomy; hernia; partial hysterectomy; Tonsillectomy; kc6 - Immunization history:: Adult Immunizations up to date. - Infectious Disease History:: Denies. - Social history:: Smoking status: Patient denies any tobacco usage or history of. Screenin:17 [place] ED Fall Risk Assessment (Adult) History of falling in the last 3 months, kc6 including since admission No falls in past 3 months (0 pts) Confusion or Disorientation No (0 pts) Intoxicated or Sedated No (0 pts) Impaired Gait No (0 pts) Mobility Assist Device Used No (0 pt) Altered Elimination No (0 pt) Score/Fall Risk Level 0 - 2 = Low Risk Oriented to surroundings, Maintained a safe environment, Educated pt \\T\\ family on fall prevention, incl call for assistance when getting out of bed. Abuse screen: Denies threats or abuse. Denies injuries from another. Nutritional screening: No deficits noted. Tuberculosis screening: No symptoms or risk factors identified. Assessment: 17:17 General: Appears in no apparent distress. comfortable, well groomed, well developed, kc6 Behavior is cooperative, crying. Pain: Complains of pain in face. Neuro: Level of Consciousness is awake, alert, obeys commands, Oriented to person, place, time, situation, Appropriate for age Reports blurred vision headache frontal area. Cardiovascular: Capillary refill < 3 seconds. Respiratory: Airway is patent Trachea midline Respiratory effort is even, unlabored, Respiratory pattern is regular, symmetrical. GI: Reports nausea, Patient currently denies abdominal pain, diarrhea, vomiting. : No signs and/or symptoms were reported regarding the genitourinary system. EENT: No signs and/or symptoms were reported regarding the EENT system. Derm: No signs and/or symptoms reported regarding the dermatologic system. Skin is intact, is healthy with good turgor, Skin is pink, warm \\T\\ dry. Musculoskeletal: No signs and/or symptoms reported regarding the musculoskeletal system. Circulation, motion, and sensation intact. Range of motion: intact in all extremities. 18:29 Reassessment: Patient appears in no apparent distress at this time. No changes from kc6 previously documented assessment. Patient and/or family updated on plan of care and expected duration. Pain level reassessed. Patient is alert, oriented x 3, equal unlabored respirations, skin warm/dry/pink. 19:00 General: Appears in no apparent distress. comfortable, Behavior is calm, cooperative. rg5 19:00 Pain: Denies pain. Neuro: Level of Consciousness is awake, alert, obeys commands, rg5 Oriented to person, place, time, situation, Appropriate for age Reports headache. Cardiovascular: Patient's skin is warm and dry. Respiratory: Airway is patent Trachea deviated to right Respiratory effort is even, unlabored, Respiratory pattern is regular, symmetrical. GI: Abdomen is round non-distended, Abd is soft and non tender. : No signs and/or symptoms were reported regarding the genitourinary system. EENT: No deficits noted. Derm: Skin is intact, is healthy with good turgor, Skin is dry, Skin is normal, Skin temperature is warm. Musculoskeletal: Circulation, motion, and sensation intact. Range of motion: limited in all extremities. Psych: 17:17 [place] Suicide Severity Screening: In the past month, have you wished you were kc or wished you could go to sleep and not wake up? Patient responds "yes." Based off the client's responses additional C-SSRS screening is required. "In the past month, have you actually had any thoughts of killing yourself?" Patient responds "yes." Based off the client's response additional Hope suicide severity screening questions to be further documented on paper forms. "In your lifetime, have you ever done anything, started to do anything, or prepared to do anything to end your life?" Patient responds "yes." Patient reports suicidal intent within 3 past months. Patient reports suicidal intent occurred greater than 3 months prior. Subjective: Patient's mood is sad, hopeless, Delusions are denied, Hallucinations are denied Having thoughts of suicide. Plan for suicide is cut herself until she bleeds to . Objective: Patient is cooperative, Speech is normal, Affect is appropriate. Interventions: Removed personal items and placed in bag. Patient placed in hospital gown. Searched person for dangerous items. Urine collected and sent for urine drug test. Belonging list filled out. Safety Checks: Personal items have been removed. Door is open. No visitors are present at this time. Pt denies substance abuse. Commitment: Patient will be a voluntary commitment. Vital Signs: 17:17 BP 129 / 52; Pulse 62; Resp 16 S; Temp 98.4(O); Pulse Ox 100% on R/A; Weight 78.93 kg [facility] (R); Height 5 ft. 5 in. (R); 19:00 BP 125 / 58; Pulse 61; Resp 15; Temp 98.6; Pulse Ox 100% on R/A; vk 17:17 Body Mass Index 28.96 (78.93 kg, 165.1 cm) [facility] ED Course: 17:10 Patient arrived in ED. gm2 17:12 Abril Reyn[facility]NP-C [facility]. kb 17:13 Mckinley Malin MD is Attending Physician. kb 17:17 Arm band placed on. kc6 17:17 Patient has correct armband on for positive identification. Bed in low position. Side kc6 rails up X2. Valuables inventory done. Locked in safe. See valuables checklist. Security at bedside. Door closed. Noise minimized. Visitors limited. Lights dimmed. Moved to private room. Warm blanket given. Pillow given. Verbal reassurance given. Patient is placed in psych hold. 17:17 Sitter at bedside. kc6 17:17 Patient maintains SpO2 saturation greater than 95% on room air. kc6 17:22 Jenn Shah, RN is Primary Nurse. kc6 17:24 Triage completed. kc6 17:58 Initial lab(s) drawn, by me, sent to lab. Urine collected: clean catch specimen, clear, db EKG done, by ED staff, reviewed by Abril EDWARDS. Inserted saline lock: 20 gauge in right antecubital area, using aseptic technique. Blood collected. Flushed with 10 mL NS. 18:31 called [facility] for eval. sp 18:51 Sommy called with [facility] will be here in an hour and half. sp 19:00 transfer approval from receiving facility. Safety Checks: The door is not opened, nor rg5 is patient placed in a hallway bed/chair. There are no family/friend visitors at this time Sitter present at this time. 19:00 Report given to PRINCE Dexter. kc6 19:00 No provider procedures requiring assistance completed. Patient maintains SpO2 rg5 saturation greater than 95% on room air. 20:[address] [place] [facility] [place] [facility] for [place] talked to Corey. 20:40 Provided Education on: need for transfer. rg5 20:40 IV discontinued, bleeding controlled, No redness/swelling at site. Pressure dressing rg5 applied. Administered Medications: 18:02 Drug: Acetaminophen PO 1000 mg PO once Route: PO; kc6 18:27 Follow up: Response: No adverse reaction kc6 18:02 Drug: Ondansetron IVP 4 mg IVP once; over 2 minutes Route: IVP; Site: right antecubital;kc6 18:28 Follow up: Response: No adverse reaction; Nausea is decreased kc6 20:39 Drug: Ondansetron PO 4 mg PO once Route: PO; rg5 20:42 Follow up: Response: No adverse reaction rg5 20:41 Drug: Ondansetron Oral Disintegrating Tablet Oral Disintegrating Tablet 4 mg PO once rg5 Route: PO; 20:42 Follow up: Response: No adverse reaction rg5 Medication: 19:00 VIS not applicable for this client. rg5 Outcome: 18:26 ER care complete, transfer ordered by MD. chavarria 20:40 Transferred by ground EMS Note: bong weathers rg5 20:40 Condition: stable 20:40 Instructed on the need for transfer, 20:41 Patient left the ED. rg5 Signatures: Abril Reyna, PASSENGER SERVICE AGENT-C PASSENGER SERVICE AGENT-Ckb Gina Simons Kaitlyn, RN RN kc6 Bushra Bowling, RN RN Palak Daniel Vivian vk Gallardo, Rommel, PRINCE RN rg5 Corrections: (The following items were deleted from the chart) 17:36 17:17 78.93 kg Reported; Height 5 ft. 5 in. Reported; BMI: 28.9; kc6 kc6 19:54 19:53 BP 125 / 58; Pulse 61bpm; Resp 15bpm; Pulse Ox 100% RA; Temp 98.6F; vk vk
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
[2024-12-25] MEDS ORDERED: ONDANSETRON 4 MG (ODT) TAB ONE (20:31)
[2024-12-25 20:58] VITALS: O2SAT 100
[2024-12-25 20:59] VITALS: BP 125/58; TEMP 98.6
--- NOTE | 2024-12-26 16:45 | EKG ---
Test Date: 2024-12-25 Test Time: 17:51:04 Wildland Firefighter: RHONDA MEASUREMENT RESULTS: Intervals: Rate: 70 CA: 134 QRSD: 78 QT: 408 QTc: 440 Ceres: P: 45 CA: 134 QRS: 26 T: 83 INTERPRETIVE STATEMENTS: Sinus rhythm with premature supraventricular complexes Otherwise normal ECG Compared to ECG 02/10/2024 17:57:50 Sinus tachycardia no longer present Myocardial infarct finding no longer present Electronically Signed On 12-26-24 16:43:25 RN HEMO DIALYSIS by Nixon Zheng
== END 2024-12-25 20:41 ==
LOC: ER 17:00
DX: R45.851 Suicidal ideations (principal); F32.A Depression, unspecified; Z86.73 Personal history of transient ischemic attack (TIA), and cerebral infarction without residual deficits
CPT/HCPCS: 85025; 81001; 80048; 36415; 85610; 80076; 85730; 80307; 80143; 80179; 82077; Q0162; J2405; 93005; 96374; 99285

== ENCOUNTER 2025-01-27 16:28 | Emergency (ER) | payer OTHER ==
[2025-01-27] MEDS ORDERED: ONDANSETRON 4 MG (ODT) TAB ONE (16:41)
[2025-01-27] MEDS ORDERED: ACETAMINOPHEN 325 MG TABLET ONE (16:41)
--- NOTE | 2025-01-27 17:42 | RAD REPORT ---
EXAMINATION: Head C Spine Mpr Wo Con CLINICAL INDICATION: Female, 74 years old. PAIN TECHNIQUE: Axial CT images from the skull base to the vertex without intravenous contrast. Axial CT i mages through the cervical spine were obtained without intravenous contrast. Sagittal and coronal reformatted images were created from the data set. Coronal and sagittal reformatted images were creat ed from the data set. One or more of the following dose reduction techniques were used: Automated exposure control, adjustment of the mA and/or kV according to patient size, and/or iterative reconstr uction. Unless otherwise specified, incidental findings do not require dedicated imaging follow-up. [id number]. COMPARISON: 11/22/23 FINDINGS: Head: INTRACRANIAL: No acute intracranial hemorrhage. No hydrocephalus. No mass effect or midline shift. No significant white matter disease. VASCULATURE: No visualized abnormalities in the arteries or dural venous sinuses. SCALP/SKULL: No calvarial fracture identified. No acute soft tissue abnormality. SINUSES: The visualized paranasal sinuses are mostly clear. No significant mastoid fluid. Cervical spine: ALIGNMENT: The cervical spine has normal alignment without scoliosis or spondylolisthesis. BONE: Vertebral body heights are maintained. No aggressive osseous lesions. DEGENERATIVE: Degenerative changes above and below the fusion with evidence of moderate left and mode rate right neural foraminal narrowing at C3-4. Moderate bilateral neural foraminal narrowing is also present at C6-7. Status post C4-C6 ACDF. SOFT TISSUE: No significant abnormalities in the soft tissue of the neck. The visualized lung apices are clear. IMPRESSION: No acute intracranial abnormality. No acute fracture or traumatic malalignment of the cervical spine.
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
[2025-01-27] MEDS ORDERED: KETOROLAC 30 MG/ML INJ ONE (18:18)
[2025-01-27] MEDS ORDERED: DIAZEPAM 5 MG TABLET ONE (18:18)
[2025-01-27 18:46] VITALS: TEMP 98.3; O2SAT 100
[2025-01-27 18:48] VITALS: BP 124/42
== END 2025-01-27 18:40 | disposition home or self-care (01) ==
LOC: ER 16:28
DX: S00.83XA Contusion of other part of head, initial encounter (principal); S29.012A Strain of muscle and tendon of back wall of thorax, initial encounter; R29.91 Unspecified symptoms and signs involving the musculoskeletal system; V49.49XA Driver injured in collision with other motor vehicles in traffic accident, initial encounter
CPT/HCPCS: 70450; 71250; 72125; 74176; 96372; 99284; Q0162